=== PATIENT | male | born 1935 | race Caucasian/White ===

== ENCOUNTER 2021-05-30 15:21 | Emergency (ER) | payer OTHER ==
--- OUTSIDE RECORDS SUMMARY | 2021-05-30 15:24 | XMS REPORT | Continuity of Care Document ---
:1935 Author Organization [facility] t Address [address] [place] [address] Dr. Lozano [address] [place] [id number] Care Team Providers Name Role Phone Unavailable Unavailable Unavailable Problems This patient has no known problems. Allergies, Adverse Reactions, Alerts This patient has no known allergies or adverse reactions. Medications This patient has no known medications. Procedures This patient has no known procedures. Results This patient has no known results.
--- NOTE | 2021-05-30 16:31 | RAD REPORT ---
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 An acute fracture is not evident. A suprapatellar joint effu siri is seen which contains calcifications. It is recommended the patient undergo follow-up nonemerge nt MRI knee assessment for further evaluation this finding.
--- NOTE | 2021-05-30 16:36 | ER ---
Nurse's Notes [facility] Name: Roberto Brown Age: 86 yrs Sex: Male : 1935 Arrival Date: 05/30/2021 Time: 15:22 Bed 6 Private MD: Diagnosis: Pain in left knee;Fall on same level from slipping, tripping and stumbling without subsequent striking against object Presentation: 05/30 15:22 Chief complaint: Patient states: L knee pain since falling yesterday. Coronavirus ll1 screen: Vaccine status: Patient reports being unvaccinated. Client denies travel out of the [place] in the last 14 days. At this time, the client does not indicate any symptoms associated with coronavirus-19. Ebola Screen: Patient denies travel to an Ebola-affected area in the 21 days before illness onset. Initial Sepsis Screen: Does the patient meet any 2 criteria? No. Patient's initial sepsis screen is negative. Does the patient have a suspected source of infection? Yes: Bone or joint infection. Risk Assessment: Do you want to hurt yourself or someone else? Patient reports no desire to harm self or others. Onset of symptoms was May 29, 2021. 15:22 Method Of Arrival: EMS: [facility] ll1 15:22 Acuity: ELLI 4 ll1 Triage Assessment: 15:24 General: Appears in no apparent distress. Behavior is calm, cooperative, appropriate ll1 for age. Pain: Complains of pain in L knee Quality of pain is described as aching. Musculoskeletal: Circulation, motion, and sensation intact. Capillary refill < 3 seconds, Tenderness present in L knee Reports pain in L knee. Injury Description: Bruise. Historical: - Allergies: 15:23 No Known Allergies; ll1 - PMHx: 15:23 Hypertensive disorder; Gastroesophageal reflux disease; Hypercholesterolemia; ll1 - PSHx: 15:23 hernia SX; ll1 - Immunization history:: Client reports having NOT received the Covid vaccine. - Social history:: Smoking status: Patient reports use of chewing tobacco. Patient denies any tobacco usage or history of. Screenin:25 Abuse screen: Denies threats or abuse. Nutritional screening: No deficits noted. ll1 Tuberculosis screening: No symptoms or risk factors identified. Fall Risk Ambulatory Aid- Crutches/Cane/Walker (15 pts). Gait- Weak (10 pts.). Total Lux Fall Scale indicates Low Risk Score (25-44 pts). Fall prevention measures have been instituted. Side Rails Up X 2 Placed close to Nursing Station Frequent Obs/Assesments occuring Family Present and informed to notify staff if they need to leave bedside As available Patient and Family Educated on Fall Prevention Program and strategies. Assessment: 16:20 Reassessment: No changes from previously documented assessment. Patient and/or family ll1 updated on plan of care and expected duration. Pain level reassessed. Patient is alert, oriented x 3, equal unlabored respirations, skin warm/dry/pink. 16:47 Reassessment: No changes from previously documented assessment. Patient and/or family ll1 updated on plan of care and expected duration. Pain level reassessed. Patient is alert, oriented x 3, equal unlabored respirations, skin warm/dry/pink. Patient states feeling better. Vital Signs: 15:22 BP 134 / 67; Pulse 83; Resp 17; Temp 97.6; Pulse Ox 100% on R/A; Weight 72.57 kg; ll1 Height 6 ft. 0 in. (182.88 cm); Pain 7/10; 16:46 BP 138 / 66; Pulse 73; Resp 16; Pulse Ox 100% ; Pain 2/10; ll1 15:22 Body Mass Index 21.70 (72.57 kg, 182.88 cm) ll1 ED Course: 15:22 Patient arrived in ED. ll1 15:23 Triage completed. ll1 15:24 Arm band placed on Patient placed in an exam room, on a stretcher. ll1 15:25 Patient has correct armband on for positive identification. Bed in low position. Call ll1 light in reach. Side rails up X 1. Cardiac monitoring not applicable on this patient. 15:26 Chaim Jones PA is PHCP. adam 15:26 Roberto Mckee DO is Attending Physician. [facility] 15:26 PHCP role handed off by Chaim Jones PA kb 15:26 Rhoda Walker FNP-C is PHCP. kb 15:27 Sudarshan Sesay, ANTONIO is Primary Nurse. ll1 16:16 Knee Left 3 View XRAY In Process Unspecified. EDMS 16:46 No provider procedures requiring assistance completed. Patient did not have IV access ll1 during this emergency room visit. Administered Medications: 15:33 Drug: traMADol 50 mg Route: PO; cook 15:33 Follow up: Response: No adverse reaction cook 16:46 Follow up: Response: No adverse reaction; Pain is decreased; RASS: Alert and Calm (0) 1 Outcome: 16:35 Discharge ordered by . matt 16:46 Discharged to home via wheelchair. ll1 16:46 Condition: stable 16:46 Discharge instructions given to patient, family, Instructed on discharge instructions, follow up and referral plans. crutch walking, Demonstrated understanding of instructions, follow-up care, crutch walking. 16:47 Patient left the ED. 1 Signatures: Dispatcher [employer] Rhoda Love, CURING SUPERVISOR-C CURING SUPERVISOR-Chaim Floyd PA PA jmm Lewis, Lynsay, RN RN [facility] Norah-Ileana Catalan RN RN
--- NOTE | 2021-05-30 16:36 | EDPHYS ---
Physician Documentation [facility] Name: Roberto Brown Age: 86 yrs Sex: Male : 1935 Arrival Date: 05/30/2021 Time: 15:22 Bed 6 Private MD: ED Physician Roberto Mckee HPI: 05/30 16:46 This 86 yrs old Male presents to ER via EMS with complaints of Knee Injury, Fall Injury.kb 16:46 The patient presents with pain. The complaints affect the left knee. Context: The kb problem was sustained at home, resulted from the patient falling, while walking, the patient can partially bear weight, must have assistance. Onset: The symptoms/episode began/occurred yesterday. Modifying factors: The symptoms are alleviated by nothing. the symptoms are aggravated by weight bearing. Associated signs and symptoms: The patient has no apparent associated signs or symptoms. Treatment prior to arrival includes: no previous treatment. Severity of symptoms: At their worst the symptoms were mild, moderate, in the emergency department the symptoms are unchanged. The patient has not experienced similar symptoms in the past. The patient has not recently seen a physician. Pt reports he was bringing in groceries and misstepped causing him to fall to his left knee. Reports pain only to left knee, no other complaints. states "He just needs some pain medicine and some crutches." States pt uses crutches like a cane. . Historical: - Allergies: 15:23 No Known Allergies; ll1 - PMHx: 15:23 Hypertensive disorder; Gastroesophageal reflux disease; Hypercholesterolemia; ll1 - PSHx: 15:23 hernia SX; ll1 - Immunization history:: Client reports having NOT received the Covid vaccine. - Social history:: Smoking status: Patient reports use of chewing tobacco. Patient denies any tobacco usage or history of. ROS: 16:46 Constitutional: Negative for fever, chills, and weight loss. kb 16:46 MS/extremity: Positive for pain, of the left knee. 16:46 All other systems are negative. Exam: 16:45 Constitutional: This is a well developed, well nourished patient who is awake, alert, kb and in no acute distress. Head/Face: Normocephalic, atraumatic. ENT: Moist Mucous membranes Cardiovascular: Regular rate and rhythm with a normal S1 and S2. No gallops, murmurs, or rubs. No pulse deficits. Respiratory: Respirations even and unlabored. No increased work of breathing. Talking in full sentences Abdomen/GI: Soft, non-tender. No distention Skin: Warm, dry with normal turgor. Normal color. Neuro: Awake and alert, GCS 15, oriented to person, place, time, and situation. Moves all extremities. Normal gait. Psych: Awake, alert, with orientation to person, place and time. Behavior, mood, and affect are within normal limits. 16:45 Musculoskeletal/extremity: Extremities: grossly normal except: noted in the left knee: pain, ROM: intact in all extremities, Circulation is intact in all extremities. Sensation intact. Weight bearing: can bear weight with assistance only. Vital Signs: 15:22 BP 134 / 67; Pulse 83; Resp 17; Temp 97.6; Pulse Ox 100% on R/A; Weight 72.57 kg; ll1 Height 6 ft. 0 in. (182.88 cm); Pain 7/10; 16:46 BP 138 / 66; Pulse 73; Resp 16; Pulse Ox 100% ; Pain 2/10; ll1 15:22 Body Mass Index 21.70 (72.57 kg, 182.88 cm) ll1 MDM: 15:26 Patient medically screened. kb 16:35 Data reviewed: vital signs, nurses notes. Data interpreted: Pulse oximetry: on room air kb is 100 %. Interpretation: normal. Counseling: I had a detailed discussion with the patient and/or guardian regarding: the historical points, exam findings, and any diagnostic results supporting the discharge/admit diagnosis, radiology results, the need for outpatient follow up, a family practitioner, to return to the emergency department if symptoms worsen or persist or if there are any questions or concerns that arise at home. 05/30 15:27 Order name: Knee Left 3 View XRAY; Complete Time: 16:35 kb 05/30 16:38 Order name: Crutches; Complete Time: 16:46 kb Administered Medications: 15:33 Drug: traMADol 50 mg Route: PO; cook 15:33 Follow up: Response: No adverse reaction cook 16:46 Follow up: Response: No adverse reaction; Pain is decreased; RASS: Alert and Calm (0) ll1 Disposition: 21:29 Co-signature as Attending Physician, Roberto Mckee DO I agree with the assessment and ms3 plan of care. Disposition Summary: 05/30/21 16:35 Discharge Ordered Location: Home kb Condition: Stable kb Diagnosis - Pain in left knee kb - Fall on same level from slipping, tripping and stumbling without subsequent kb striking against object Followup: kb - With: Emergency Department - When: As needed - Reason: Worsening of condition Followup: kb - With: Private Physician - When: 2 - 3 days - Reason: Recheck today's complaints, Continuance of care, Re-evaluation by your physician Discharge Instructions: - Discharge Summary Sheet kb - Musculoskeletal Pain kb - Acute Knee Pain, Adult, [id number] kb Forms: - Medication Reconciliation Form kb - Thank You Letter kb - Antibiotic Education kb - Prescription Opioid Use kb Signatures: Dispatcher [employer] EDMS Rhoda Walker, JAVA DEVELOPMENT TEAM LEAD-C JAVA DEVELOPMENT TEAM LEAD-Sudarshan Parekh RN RN 1 Roberto Mckee DO DO ms3 Norah-Ileana Catalan RN RN Corrections: (The following items were deleted from the chart) 16:49 16:46 Pt reports he was bringing in groceries and misstepped causing him to fall to his kb left knee. Reports pain only to left knee, no other complaints. . kb
[2021-05-30 17:06] VITALS: TEMP 97.6; O2SAT 100
[2021-05-30 17:08] VITALS: BP 138/66
== END 2021-05-30 16:47 | disposition home or self-care (01) ==
LOC: ER 15:21
DX: M25.562 Pain in left knee (principal); W01.0XXA Fall on same level from slipping, tripping and stumbling without subsequent striking against object, initial encounter; Y92.009 Unspecified place in unspecified non-institutional (private) residence as the place of occurrence of the external cause; I10 Essential (primary) hypertension; F17.220 Nicotine dependence, chewing tobacco, uncomplicated
CPT/HCPCS: 99284

== ENCOUNTER 2022-11-18 17:59 | Inpatient (IN) | payer OTHER ==
--- OUTSIDE RECORDS SUMMARY | 2022-11-18 18:01 | XMS REPORT | Continuity of Care Document ---
:1935 Author Organization [facility] t Address [address] [place] [id number] Care Team Providers Name Role Phone Unavailable Unavailable Unavailable Problems This patient has no known problems. Allergies, Adverse Reactions, Alerts This patient has no known allergies or adverse reactions. Medications This patient has no known medications. Procedures This patient has no known procedures. Results This patient has no known results.
[2022-11-18] MEDS ORDERED: dilTIAZem HCL 25 MG/5 ML VIAL IV ONE (18:39)
[2022-11-18 18:56] LABS: Absolute Lymphocytes (CBC) 0.6 K/uL (0.7-4.9); Hematocrit 19.3 % (39.6-49.0); Lymphocytes % 9.7 % (15.3-44.8); MCV 81.2 fL (80-100); MPV 7.9 fL (7.6-11.3); Platelets 146 thou/uL (152-406); RBC Red Blood Cell Count 2.38 M/uL (4.33-5.43)
--- NOTE | 2022-11-18 18:56 | RAD REPORT ---
EXAM DESCRIPTION: CT - Head Brain Wo Cont - 11/18/2022 6:41 pm CLINICAL HISTORY: WEAKNESS COMPARISON: No comparisons TECHNIQUE: All CT scans are performed using dose optimization technique as appropriate and may inclu de automated exposure control or mA/KV adjustment according to patient size. FINDINGS: No intracranial hemorrhage, hydrocephalus or extra-axial fluid collection.No areas of brai n edema or evidence of midline shift. Cerebral atrophy. Left mastoid fluid. The calvarium is intact. IMPRESSION: No acute intracranial abnormality.
[2022-11-18 19:09] LABS: Albumin 2.6 g/dL (3.4-5.0); Bilirubin Direct 0.2 mg/dL (0-0.2); Bilirubin Indirect, Calculated 0.3 mg/dL (0.2-0.8); Bilirubin Total 0.5 mg/dL (0.2-1.0); Magnesium 1.7 mg/dL (1.6-2.4); Potassium 3.2 mEq/L (3.5-5.1); Protein, Total 5.7 g/dL (6.4-8.2); Troponin High Sensitivity 12.9 pg/mL (<58.9)
--- NOTE | 2022-11-18 19:31 | RAD REPORT ---
EXAM DESCRIPTION: RAD - Chest Single View - 11/18/2022 7:15 pm CLINICAL HISTORY: weakness COMPARISON: CHEST SINGLE VIEW dated 01/02/2012; CHEST SINGLE VIEW dated 10/06/2011; CTSTONE PROTOCOL da edison 01/02/2012 FINDINGS: Lines: None. Lungs: No evidence of edema or pneumonia. Pleural: No significant pleural effusions or pneumothorax. Cardiac: Heart size is probably within normal limits. Mediastinum: Large hiatal hernia. Bones: No acute fractures. Other: None IMPRESSION: No acute cardiopulmonary disease. Large hiatal hernia.
[2022-11-18] MEDS ORDERED: POTASSIUM CL SA 10 MEQ TAB PO ONE (20:00)
--- NOTE | 2022-11-18 20:04 | EDPHYS ---
Physician Documentation [facility] Name: Roberto Brown Age: 87 yrs Sex: Male : 1935 Arrival Date: 11/18/2022 Time: 17:59 Bed 16 Private MD: ED Physician Ramo Wren HPI: 11/18 20:04 This 87 yrs old Male presents to ER via Wheelchair with complaints of Dizziness, rt Weakness. 20:04 Patient presents to the ED with generalized weakness, dizziness has been present for rt several weeks, progressively worsening, acutely worsening today. Patient developed some chest pain today as well. Denies shortness of breath. Denies other plaints this time. Symptoms are moderate in severity, no other aggravating or elevating factors. Historical: - Allergies: 18:21 No Known Allergies; cm10 - PMHx: 18:21 Gastroesophageal reflux disease; Hypertensive disorder; Hypercholesterolemia; Kidney cm10 disease; - PSHx: 18:21 Hernia sx; cm10 - Immunization history:: Adult Immunizations unknown. - Social history:: Smoking status: unknown. - Family history:: not pertinent. ROS: 20:04 Constitutional: Negative for fever, chills, and weight loss, Respiratory: Negative for rt shortness of breath, cough, wheezing, and pleuritic chest pain, Abdomen/GI: Negative for abdominal pain, nausea, vomiting, diarrhea, and constipation, Psych: Negative for depression, anxiety, suicide ideation, homicidal ideation, and hallucinations. 20:04 Cardiovascular: Positive for chest pain, edema. 20:04 Neuro: Positive for dizziness, weakness. Exam: 20:04 ECG was reviewed by the Attending Physician. rt 20:04 Abdomen/GI: No tenderness or distention, brown stool in rectal vault, no melena or rectal bleeding noted. 20:04 Musculoskeletal/extremity: 3+ pitting bilateral lower extremity edema. Vital Signs: 18:20 BP 124 / 72; Pulse 101; Resp 18; Temp 98.1; Pulse Ox 96% ; cm10 19:00 BP 128 / 63; Pulse 93; Resp 18 S; Pulse Ox 97% on R/A; kc6 21:01 BP 123 / 73; Pulse 103; Resp 18; Pulse Ox 98% on R/A; ll3 MDM: 18:11 Patient medically screened. rt 20:07 Differential diagnosis: cardiac arrhythmia, Electrolyte disturbance, anemia, GI bleed. rt Data reviewed: vital signs, nurses notes. Consideration of Admission/Observation Patient was admitted/placed on observation. Management of patient was discussed with the following: Hospitalist: Agrees to admit. I considered the following discharge prescriptions or medication management in the emergency department Medications were administered in the Emergency Department. See MAR. Independent interpretation of the following test(s) in the Emergency Department CT Scan: My interpretation is No hemorrhage seen on interpretation of the CT scan images. Test considered but Not performed: CT: Abdominal pain, CT scan of the abdomen not indicate. Care significantly affected by the following chronic conditions: Hypertension. Counseling: I had a detailed discussion with the patient and/or guardian regarding the historical points, exam findings, and any diagnostic results supporting the discharge/admit diagnosis, lab results, radiology results, the need for further work-up and treatment in the hospital. Response to treatment: the patient's symptoms have markedly improved after treatment. 11/18 18:24 Order name: Basic Metabolic Panel; Complete Time: 19:18 rt 11/18 18:24 Order name: CBC with Diff rt 11/18 18:24 Order name: LFT's; Complete Time: 19:18 rt 11/18 18:24 Order name: Magnesium; Complete Time: 19:18 rt 11/18 18:24 Order name: NT PRO-BNP; Complete Time: 19:18 rt 11/18 18:24 Order name: Troponin HS; Complete Time: 19:18 rt 11/18 18:24 Order name: UAM rt 11/18 19:34 Order name: Type And Screen rt 11/18 19:58 Order name: Packed RBC Leukored EDSC 11/18 21:27 Order name: CBC Smear Scan EDMS 11/18 18:24 Order name: XRAY Chest (1 view); Complete Time: 19:33 rt 11/18 18:24 Order name: CT Head Brain wo Cont; Complete Time: 19:18 rt 11/18 18:24 Order name: EKG; Complete Time: 18:24 rt 11/18 18:24 Order name: Cardiac monitoring; Complete Time: 18:26 rt 11/18 18:24 Order name: EKG - Nurse/Tech; Complete Time: 18:26 rt 11/18 18:24 Order name: IV Saline Lock; Complete Time: 18:26 rt 11/18 18:24 Order name: Labs collected and sent; Complete Time: 18:26 rt 11/18 18:24 Order name: O2 Per Protocol; Complete Time: 18: rt 11/18 18:24 Order name: O2 Sat Monitoring; Complete Time: 18:26 rt EC:04 Rate is 100 beats/min. Rhythm is irregularly irregular, A fib with No ectopy. QRS Hinckley rt is Normal. QRS interval is normal. QT interval is normal. No Q waves. Administered Medications: 18:33 Drug: Diltiazem IVP 10 mg Route: IVP; Site: left antecubital; kc6 20:23 Drug: Potassium Chloride PO 40 mEq Route: PO; ll3 21:36 Follow up: Response: No adverse reaction ll3 20:27 Drug: amiodarone IVPB 150 mg Volume: 100 ml; Route: IVPB; Infused Over: 10 mins; Site: ll3 right antecubital; 21:35 Follow up: Response: No adverse reaction; IV Status: Completed infusion; IV Intake: ll3 100ml 20:50 Drug: amiodarone IVPB 900 mg, D5W IV 500 ml Route: IVPB; Rate: 1 mg/min; Site: right ll3 antecubital; 21:35 Follow up: Response: No adverse reaction; IV Status: Infusion continued upon admission ll3 Disposition Summary: 11/18/22 20:04 Hospitalization Ordered Hospitalization Status: Inpatient Admission rt Provider: Jose Teixeira rt Location: Telemetry/MedSurg (Inpatient) rt Condition: Fair rt Problem: new rt Symptoms: have improved rt Bed/Room Type: Standard rt Room Assignment: 401(11/18/22 20:49) cg Diagnosis - Symptomatic anemia rt - New onset atrial fibrillation with rapid ventricular rate rt - Hypokalemia rt Forms: - Medication Reconciliation Form rt - SBAR form rt - Leadership Thank You Letter rt Signatures: Dispatcher [employer] Adarsh Helton FNP-C FNP-Cla1 Donna Fuller RN RN cg Gina Crook RN RN ll3 Gladys Medina RN RN kc6 Ramo Wren MD MD rt Adelaide Samano RN RN cm10 Corrections: (The following items were deleted from the chart) 20:49 20:04 rt cg
--- NOTE | 2022-11-18 20:04 | ER ---
Nurse's Notes [facility] Name: Roberto Brown Age: 87 yrs Sex: Male : 1935 Arrival Date: 11/18/2022 Time: 17:59 Bed 16 Private MD: Diagnosis: Symptomatic anemia;New onset atrial fibrillation with rapid ventricular rate;Hypokalemia Presentation: 11/18 18:20 Chief complaint: Patient states: states dizziness and generalized weakness that has cm10 been going on for some time. Pt states that today around 1300 he started having some chest pain. Coronavirus screen: Client denies travel out of the [place] in the last 14 days. Ebola Screen: Patient denies travel to an Ebola-affected area in the 21 days before illness onset. No symptoms or risks identified at this time. Initial Sepsis Screen: Does the patient meet any 2 criteria? No. Patient's initial sepsis screen is negative. Does the patient have a suspected source of infection? No. Patient's initial sepsis screen is negative. Risk Assessment: Do you want to hurt yourself or someone else? Patient reports no desire to harm self or others. Onset of symptoms is unknown. 18:20 Method Of Arrival: Wheelchair cm10 18:20 Acuity: ELLI 2 cm10 Historical: - Allergies: 18:21 No Known Allergies; cm10 - PMHx: 18:21 Gastroesophageal reflux disease; Hypertensive disorder; Hypercholesterolemia; Kidney cm10 disease; - PSHx: 18:21 Hernia sx; cm10 - Immunization history:: Adult Immunizations unknown. - Social history:: Smoking status: unknown. - Family history:: not pertinent. Screenin:41 [facility] ED Fall Risk Assessment (Adult) History of falling in the last 3 months, kc6 including since admission No falls in past 3 months (0 pts) Confusion or Disorientation No (0 pts) Intoxicated or Sedated No (0 pts) Impaired Gait Yes (1 pt) Mobility Assist Device Used Yes (1 pt) Altered Elimination Yes (1 pt) Score/Fall Risk Level 3 or more points = High Risk. Abuse screen: Denies threats or abuse. Denies injuries from another. Nutritional screening: No deficits noted. Tuberculosis screening: No symptoms or risk factors identified. Assessment: 18:30 General: Appears in no apparent distress. comfortable, Behavior is calm, cooperative, kc6 appropriate for age. Pain: Denies pain. Neuro: Level of Consciousness is awake, alert, obeys commands, Oriented to person, place, time, situation, Appropriate for age Reports dizziness, weakness. Cardiovascular: Denies chest pain, Heart tones S1 S2 present Capillary refill < 3 seconds Edema is 3+ to left midcalf, left ankle, right midcalf and right ankle pitting to left midcalf, left ankle, right midcalf and right ankle Rhythm is atrial fibrillation with rapid ventricular response. Respiratory: Reports shortness of breath Airway is patent Trachea midline Respiratory effort is even, unlabored, Respiratory pattern is regular, symmetrical. GI: No signs and/or symptoms were reported involving the gastrointestinal system. : No signs and/or symptoms were reported regarding the genitourinary system. EENT: No signs and/or symptoms were reported regarding the EENT system. Derm: No signs and/or symptoms reported regarding the dermatologic system. Skin is intact, is healthy with good turgor, Skin is dry, Skin is pale, Skin temperature is warm. Musculoskeletal: No signs and/or symptoms reported regarding the musculoskeletal system. Circulation, motion, and sensation intact. Capillary refill < 3 seconds, Range of motion: intact in all extremities. Vital Signs: 18:20 BP 124 / 72; Pulse 101; Resp 18; Temp 98.1; Pulse Ox 96% ; cm10 19:00 BP 128 / 63; Pulse 93; Resp 18 S; Pulse Ox 97% on R/A; kc6 21:01 BP 123 / 73; Pulse 103; Resp 18; Pulse Ox 98% on R/A; ll3 ED Course: 18:00 Patient arrived in ED. rg4 18:06 Gladys Medina, RN is Primary Nurse. kc6 18:11 Ramo Wren MD is Attending Physician. rt 18:21 Triage completed. cm10 18:22 Arm band placed on Patient placed in an exam room, on a stretcher. cm10 18:41 CT Head Brain wo Cont In Process Unspecified. EDMS 18:41 Patient has correct armband on for positive identification. Bed in low position. Call kc6 light in reach. Side rails up X2. Adult w/ patient. Client placed on continuous cardiac and pulse oximetry monitoring. NIBP monitoring applied. library monitor on. 19:16 XRAY Chest (1 view) In Process Unspecified. EDMS 20:03 Jose Teixeira MD is Hospitalizing Provider. rt 20:17 Inserted saline lock: 20 gauge in right antecubital area, using aseptic technique. ll3 Blood collected. 20:17 Packed RBC Leukored Sent. ll3 21:35 No provider procedures requiring assistance completed. Patient admitted, IV remains in ll3 place. Administered Medications: 18:33 Drug: Diltiazem IVP 10 mg Route: IVP; Site: left antecubital; kc6 20:23 Drug: Potassium Chloride PO 40 mEq Route: PO; ll3 21:36 Follow up: Response: No adverse reaction ll3 20:27 Drug: amiodarone IVPB 150 mg Volume: 100 ml; Route: IVPB; Infused Over: 10 mins; Site: ll3 right antecubital; 21:35 Follow up: Response: No adverse reaction; IV Status: Completed infusion; IV Intake: ll3 100ml 20:50 Drug: amiodarone IVPB 900 mg, D5W IV 500 ml Route: IVPB; Rate: 1 mg/min; Site: right ll3 antecubital; 21:35 Follow up: Response: No adverse reaction; IV Status: Infusion continued upon admission ll3 Medication: 21:35 VIS not applicable for this client. ll3 Intake: 21:35 IV: 100ml; Total: 100ml. ll3 Outcome: 20:04 Decision to Hospitalize by Provider. rt 21:35 Admitted to Tele accompanied by tech, via stretcher, room 401, with chart, Report ll3 called to ANTONIO Johnson 21:35 Condition: stable 21:35 Instructed on the need for admit, Demonstrated understanding of instructions. 21:42 Patient left the ED. ll3 Signatures: Dispatcher [employer] Janis Kimble4 Gina Crook RN RN ll3 Gladys Medina RN RN kc6 Ramo Wren MD MD rt Adelaide Samano RN RN cm10
--- NOTE | 2022-11-18 20:11 | P.HP ---
Certification for Inpatient Patient admitted to: Inpatient With expected LOS: >2 Midnights Patient will require the following post-hospital care: None Practitioner: I am a practitioner with admitting privileges, knowledge of patient current condition, hospital course, and medical plan of care. Services: Services provided to patient in accordance with Admission requirements found in Title 42 Section 412.3 of the Code of Federal Regulations Patient History Date of Service: 11/18/22 Reason for admission: Symptomatic anemia, new onset A-fib History of Present Illness: 87-year-old male with history of hypertension, hyperlipidemia, CKD presents to the emergency department with chief complaint of dizziness/lightheadedness, dyspnea on exertion. He reports the symptoms have been worsening over the course of the last couple months, he is extremely hard of hearing, better hearing on the left ear. He lives alone but has a roommate that stays with him on most days, he denies any melena, hematochezia, or hematemesis. His labs in the ER are significant for hemoglobin 6.0 hematocrit 19.3 platelet count 146 potassium 3.2 creatinine 1.71 GFR 39 glucose 148 BNP 2220 his hemoglobin has been steadily trending down since 07/09/2021. He is not a great historian but denies any known EGD or colonoscopy in the past. He was also noted to be in A- fib RVR with a rate around 100 which is new onset for him as well, denies any chest pain. He would need to be admitted for symptomatic anemia, new onset atrial fibrillation. Allergies No Known Allergies Allergy (Unverified 10/07/11 01:36) Home Medications: Amlodipine Besylate [Norvasc] 5 mg PO DAILY 10/07/11 Hydrocodone Bit/Acetaminophen [Salol 7.5-325 Tablet] 1 each PO QIDP PRN 10/07/11 Omeprazole 20 mg PO DAILY 10/07/11 PROMETHAZINE TAB *er disp* [Xbromizun49saKCA(4/BOX)*forerdispense] 25 mg PO Q6HP PRN 10/07/11 Qualaquin 324 mg PO BEDTIME 10/07/11 - Past Medical/Surgical History Diabetic: No -: Hypertension -: Hyperlipidemia Past Surgical History: Unable to obtain Psychosocial/ Personal History: Patient lives at home, alone. Has a roommate some days. - Family History Family History: Reviewed- Non-Contributory - Social History Smoking Status: Never smoker Alcohol use: No CD- Drugs: No Caffeine use: No Place of Residence: Home Review of Systems 10-point ROS is otherwise unremarkable Respiratory: SOB with Excertion Cardiovascular: Light Headedness, As per HPI Physical Examination - Physical Exam General: Alert, In no apparent distress, Oriented x3, Other (Very hard of hearing, better hearing out of left ear) HEENT: Atraumatic, PERRLA, Other (Mucous membranes pale), EOMI, Sclerae nonicteric Neck: Supple, 2+ carotid pulse no bruit, No LAD, Without JVD or thyroid abnormality Respiratory: Clear to auscultation bilaterally, Normal air movement Cardiovascular: No edema, Regular rate/rhythm, Normal S1 S2 Capillary refill: <2 Seconds Gastrointestinal: Normal bowel sounds, No tenderness Musculoskeletal: No tenderness Integumentary: No rashes Neurological: Normal speech, Normal strength at 5/5 x4 extr, Normal tone, Normal affect Rectal: Other (Rectal exam performed by ED physician with soft brown stool) - Studies Laboratory Data (last 24 hrs) 11/18/22 11/18/22 18:36 18:36 WBC 6.10 Hgb 6.0 L Hct 19.3 L Plt Count 146 L Sodium 140 Potassium 3.2 L BUN 18 Creatinine 1.71 H Glucose 148 H Magnesium 1.7 Total Bilirubin 0.5 AST 23 ALT 18 Alkaline Phosphatase 69 Assessment and Plan - Plan Assessment: Symptomatic anemia New onset atrial fibrillation with rapid ventricular response CKD 3 Hypertension Hyperlipidemia Plan: Symptomatic anemia Hemoglobin is less than 7, he denies any melena, hematochezia or hematemesis, it appears his hemoglobin has been downtrending over the course of the last year and a half or so. We will give blood transfusion, recheck H&H 2 hours after transfusion complete. Additional labs to evaluate anemia will be ordered. Rectal exam performed in the ER with soft brown stool. New onset atrial fibrillation with rapid ventricular response Discussed with cardiology, recommends IV amiodarone load and continuous infusion. monitor on tele. Will hold off on systemic anticoagulation given hemoglobin of 6.0 currently. Appreciate further input from cardiology. CKD 3 Similar to baseline, gentle IVF, nephrology consult as needed. Hypertension Hyperlipidemia Continue home meds. DVT PPX: SCD Code status: Full Discharge Plan: Home Plan to discharge in: 48 Hours - Advance Directives Does patient have a Living Will: No Does patient have a Durable POA for Healthcare: Yes - Code Status/Comfort Care Code Status Assessed: Yes (Full) Critical Care: No Time Spent Managing Pts Care (In Minutes): 70
[2022-11-18] MEDS ORDERED: D5W 100 ML IV ONE (20:21)
[2022-11-18] MEDS ORDERED: AMIODARONE HCL 150 MG/3 ML INJ IV ONE (20:21)
[2022-11-18] MEDS ORDERED: AMIODARONE IN DEXTROSE,ISO-OSM 360 MG/200 ML BAG IV ONE (20:21)
[2022-11-18 21:26] LABS: Anisocytosis 1+; Blood Morphology Comment NOTED (NOT SEEN); Hypochromasia 1+; Platelet Estimate ADEQ; White Blood Cell Scan OK (OK)
[2022-11-18 21:27] LABS: Ovalocytes SLIGHT; Poikilocytosis 1+; Polychromasia 1+; Teardrop Cell FEW
[2022-11-18 22:00] VITALS: BMI 27.8
[2022-11-18] MEDS ORDERED: AMIODARONE HCL 900 MG in Dextrose 5%-Water 482 ML IV SCH (22:00)
[2022-11-18] MEDS ORDERED: SODIUM CHLORIDE 0.9% 10ML INJ IV PRN (22:00)
[2022-11-18] MEDS ORDERED: ONDANSETRON 4 MG/2 ML VIAL IV PRN (22:00)
[2022-11-18] MEDS ORDERED: ACETAMINOPHEN 500 MG TAB PO PRN (22:00)
[2022-11-18] MEDS ORDERED: NA CHLORIDE 0.9% 250 ML ONE (23:16)
[2022-11-18] MEDS: NA CHLORIDE 0.9% 1,000 ML IV SCH (23:26)
[2022-11-19] MEDS ORDERED: AMIODARONE IN DEXTROSE,ISO-OSM 360 MG/200 ML BAG IV ONE (03:00)
[2022-11-19 04:59] LABS: Hematocrit 20.2 % (39.6-49.0); Lymphocytes % 17.4 % (15.3-44.8); MCV 79.6 fL (80-100); MPV 8.3 fL (7.6-11.3); Platelets 137 thou/uL (152-406); RBC Red Blood Cell Count 2.53 M/uL (4.33-5.43)
[2022-11-19 05:21] LABS: Ferritin 6.2 ng/mL (26-388); Potassium 3.6 mEq/L (3.5-5.1); Thyroid Stimulating Hormone 2.53 uIU/mL (0.358-3.740); Troponin High Sensitivity 15.4 pg/mL (<58.9)
[2022-11-19] MEDS ORDERED: NA CHLORIDE 0.9% 250 ML ONE (05:31)
[2022-11-19] MEDS: PANTOPRAZOLE 40 MG INJ IVP SCH (08:19)
[2022-11-19] MEDS: NA CHLORIDE 0.9% 1,000 ML IV SCH ×2 (11:20→15:20)
--- NOTE | 2022-11-19 13:20 | P.PN ---
Subjective Date of Service: 11/19/22 Chief Complaint: Symptomatic anemia, new onset A-fib Subjective: No new changes, Improving Physical Examination - Vital Signs Temperature: 97.2 F Blood Pressure: 127/63 Pulse: 72 Respirations: 16 Pulse Ox (%): 97 - Physical Exam General: Alert, In no apparent distress, Oriented x3 HEENT: Atraumatic, Normocephalic Neck: Supple Respiratory: Normal air movement Cardiovascular: Regular rate/rhythm, Normal S1 S2 Gastrointestinal: Soft and benign Neurological: Normal speech, Normal strength at 5/5 x4 extr - Studies Laboratory Data (last 24 hrs) 11/18/22 11/18/22 18:36 18:36 WBC 6.10 Hgb 6.0 L Hct 19.3 L Plt Count 146 L Sodium 140 Potassium 3.2 L BUN 18 Creatinine 1.71 H Glucose 148 H Magnesium 1.7 Total Bilirubin 0.5 AST 23 ALT 18 Alkaline Phosphatase 69 Assessment And Plan - Plan Symptomatic anemia: Repeat hb is stable at 6.8g/dL. He does not have melena. we will follow repeat hb level. we will refer to tensioning machine operator for proper work up. New onset atrial fibrillation with rapid ventricular response ON Amiodarone for rate control. better rate controlled for now. Cardiology following. CKD 3 Similar to baseline, gentle IVF, nephrology consult as needed. Hypertension We will continue blood pressure control medications. Hyperlipidemia Continue home meds. DVT PPX: SCD due to severe anemia. Code status: Full code. Discharge Plan: Home Plan to discharge in: 48 Hours
--- NOTE | 2022-11-19 13:56 | EKG ---
Test Date: 2022-11-18 Test Time: 18:17:18 It Technical Support Specialist: OSMAN MEASUREMENT RESULTS: Intervals: Rate: 100 HI: QRSD: 96 QT: 336 QTc: 433 [place]: P: HI: QRS: 37 T: 58 INTERPRETIVE STATEMENTS: Atrial fibrillation Abnormal ECG Compared to ECG 12/08/2011 06:43:54 Sinus rhythm no longer present Ventricular premature complex(es) no longer present Myocardial infarct finding no longer present Electronically Signed On 11-19-22 13:55:13 CDT by Anup Moon
--- NOTE | 2022-11-19 14:18 | ECHO ---
HEIGHT: 6 ft 0 in WEIGHT: 205 lb 0 oz DATE OF STUDY: 11/19/[address]: Adarsh Martin NP 2-DIMENSIONAL: YES M.MODE: YES DOPPLER: YES COLOR FLOW: YES TDS: PORTABLE: YES DEFINITY: BUBBLE STUDY: DIAGNOSIS: NEW ONSET ATRIAL FIBRILLATION WITH RAPID VENTRICULAR RESPONSE CARDIAC HISTORY: CATHERIZATION: SURGERY: PROSTHETIC VALVE: PACEMAKER: MEASUREMENTS (cm) DIASTOLIC (NORMALS) SYSTOLIC (NORMALS) IVSd 0.9 (0.6-1.2) LA Diam 4.2 (1.9-4.0) LVEF 68% LVIDd 4.0 (3.5-5.7) LVIDs 2.5 (2.0-3.5) %FS 37% LVPWd 0.9 (0.6-1.2) Ao Diam 3.1 (2.0-3.7) 2 DIMENSIONAL ASSESSMENT: RIGHT ATRIUM: NORMAL LEFT ATRIUM: ENLARGED RIGHT VENTRICLE: NORMAL LEFT VENTRICLE: NORMAL TRICUSPID VALVE: MODERATE TRICUSPID REGURGITATION MITRAL VALVE: MODERATE MITRAL REGURGITATION PULMONIC VALVE: NORMAL AORTIC VALVE: CALCIFIED, NO AORTIC STENOSIS PERICARDIAL EFFUSION: NONE AORTIC ROOT: NORMAL LEFT VENTRICULAR WALL MOTION: NORMAL DOPPLER/COLOR FLOW: SEE BELOW COMMENTS: 1. NORMAL LEFT VENTRICULAR EJECTION FRACTION 60-65% WITH NORMAL WALL MOTION 2. MODERATE TO SEVERE TRICUSPID REGURGITATION 3. MODERATE MITRAL REGURGITATION 4. SEVERE PULMONARY HYPERTENSION WITH RIGHT VENTRICULAR SYSTOLIC PRESSURE GREATER THAN 60 mmHg TECHNOLOGIST: PRATEEK TEIXEIRA
--- NOTE | 2022-11-19 18:59 | CON ---
Date of Consultation: 11/19/2022 Reason For Consultation: Atrial fibrillation with rapid ventricular response. History Of Present Illness: An 87-year-old male with history of dyslipidemia, chronic kidney disease , hypertension, presented with lightheadedness and dizziness and shortness of breath. No exertion. No chest pain. Found to be in atrial fibrillation with rapid ventricular response. He was started o n amiodarone. His heart rate is controlled today, saw him by bedside, sleeping comfortably. No sign ificant symptoms. Past Medical History: As outlined above in the HPI. Medications: Refer reconciliation sheet for detailed list. Allergies: NO KNOWN DRUG ALLERGIES. Family History: No premature coronary artery disease or cancer. Social History: Does not smoke or drink. Does not use any drugs. Review of Systems: All systems reviewed are negative except as mentioned in HPI. Physical Examination: Vital Signs: Reviewed. Head and Neck: Pupils are equal, reactive to light. Intact eye movements. No JVD. No cervical lym phadenopathy. Neck is supple. Thyroid is not enlarged. Lungs: Clear to auscultation bilaterally. No rhonchi, wheezing, or crackles. No accessory muscle u se. Heart: Irregularly irregular. No extra sounds. Abdomen: Soft, nontender. Bowel sounds positive. No organomegaly. No masses or hernia. No rigidi ty or rebound. Extremities: No clubbing or cyanosis. Intact pulses. Skin: No rash. Neurologic: Alert, awake, oriented x3. No acute focal deficits appreciated. Lymph Nodes: No cervical or axillary lymphadenopathy. Investigations: BUN 16, creatinine 1.52. Hemoglobin is 6 and 7.1. Assessment/recommendations: 1.Atrial fibrillation with rapid ventricular response, responding very well to amiodarone. Continue a full 24 hours load and then when the 24 hours is completed, then to switch him to 200 mg by mouth twice a day. Patient is severely anemic, so he is not candidate for anticoagulation. I will put him on baby aspirin. 2.Severe anemia. Recommend GI evaluation to rule out gastrointestinal tract as a source of the blee ding. 3.Elevated NT-proBNP, likely chronic heart failure. Obtain an echo and his troponins have been nega tive. SR/MODL Voice ID: [id number] Report ID: [id number]
[2022-11-20] MEDS: NA CHLORIDE 0.9% 1,000 ML IV SCH ×2 (04:10→14:00)
[2022-11-20 04:11] LABS: Hematocrit 23.7 % (39.6-49.0); Lymphocytes % 13.9 % (15.3-44.8); MCV 80.2 fL (80-100); MPV 7.8 fL (7.6-11.3); Platelets 130 thou/uL (152-406); RBC Red Blood Cell Count 2.95 M/uL (4.33-5.43)
[2022-11-20 04:32] LABS: Potassium 3.8 mEq/L (3.5-5.1)
[2022-11-20] MEDS: PANTOPRAZOLE 40 MG INJ IVP SCH (09:35)
--- NOTE | 2022-11-20 14:50 | P.PN ---
Subjective Date of Service: 11/20/22 Chief Complaint: Symptomatic anemia, new onset A-fib Subjective: No new changes, Improving Physical Examination - Vital Signs Temperature: 97.8 F Blood Pressure: 182/79 Pulse: 78 Respirations: 18 Pulse Ox (%): 95 - Physical Exam General: Alert, Oriented x3 HEENT: Atraumatic, Normocephalic Neck: Supple Respiratory: Normal air movement Cardiovascular: Regular rate/rhythm, Normal S1 S2 Gastrointestinal: Soft and benign Musculoskeletal: No swelling Neurological: Normal speech Assessment And Plan - Plan Symptomatic anemia: Repeat hb is stable at 7.4g/dL. He does not have melena. we will follow repeat hb level. we will refer to bumper operator for proper work up. New onset atrial fibrillation with rapid ventricular response On Amiodarone for rate control. better rate controlled for now. Cardiology following. Oral amiodarone started. Aspirin started for anticoagulation as per cardiology recommendation. CKD 3 Similar to baseline with stable cr. we will follow clinical course closely. Hypertension We will continue blood pressure control medications. Hyperlipidemia Continue home meds. DVT PPX: SCD due to severe anemia. Code status: Full code. Discharge Plan: Home Plan to discharge in: in next 24hrs
[2022-11-20] MEDS ORDERED: HYDROCODONE/APAP 7.5/325 MG TAB PO PRN (16:44)
[2022-11-20] MEDS: AMIODARONE HCL 200 MG TAB PO SCH (20:13)
[2022-11-20] MEDS ORDERED: GABAPENTIN 100 MG CAP PO SCH (21:00)
[2022-11-21] MEDS: NA CHLORIDE 0.9% 1,000 ML IV SCH ×2 (06:30→16:09)
[2022-11-21 06:59] LABS: Absolute Lymphocytes (CBC) 0.8 K/uL (0.7-4.9); Hematocrit 22.1 % (39.6-49.0); Lymphocytes % 13.6 % (15.3-44.8); MCV 79.8 fL (80-100); MPV 7.8 fL (7.6-11.3); Platelets 116 thou/uL (152-406); RBC Red Blood Cell Count 2.77 M/uL (4.33-5.43)
[2022-11-21 07:11] LABS: Potassium 3.7 mEq/L (3.5-5.1)
[2022-11-21 08:44] LABS: Anisocytosis 1+; Blood Morphology Comment NOTED (NOT SEEN); Hypochromasia 1+; Ovalocytes 1+; Platelet Estimate ADEQ; Poikilocytosis 1+; Teardrop Cell FEW; White Blood Cell Scan OK (OK)
[2022-11-21] MEDS ORDERED: ASPIRIN EC 81 MG TAB PO SCH (09:00)
[2022-11-21] MEDS: AMIODARONE HCL 200 MG TAB PO SCH ×2 (09:02→22:19)
[2022-11-21] MEDS: AMLODIPINE 5 MG TAB PO SCH (09:02)
[2022-11-21] MEDS: PANTOPRAZOLE 40 MG INJ IVP SCH (09:02)
--- NOTE | 2022-11-21 18:31 | P.PN ---
Subjective Date of Service: 11/21/22 Chief Complaint: Symptomatic anemia, new onset A-fib No acute events overnight. He reports generalized weakness. He denies any obvious source of bleeding, specifically denying any melena, hematemesis, or hematochezia. He denies any chest pain or palpitations. Review of Systems 10-point ROS is otherwise unremarkable General: Weakness (generalized) Physical Examination - Vital Signs Temperature: 97.6 F Blood Pressure: 136/59 Pulse: 76 Respirations: 17 Pulse Ox (%): 95 - Physical Exam General: Alert, In no apparent distress, Oriented x3 HEENT: Atraumatic, Mucous membr. moist/pink, Sclerae nonicteric Neck: JVD not distended Respiratory: Clear to auscultation bilaterally, Normal air movement Cardiovascular: No edema, Regular rate/rhythm, Normal S1 S2, Systolic murmur Gastrointestinal: Normal bowel sounds, Soft and benign, Non-distended, No tenderness, No rebound, No guarding Musculoskeletal: No clubbing Integumentary: No rashes Neurological: Normal speech, Normal affect, Other (bilateral sensorineural hearing loss) Assessment And Plan - Plan # Symptomatic Anemia # Large Hiatal Hernia - Denies any obvious source of bleeding - Has large hiatal hernia, which places him at risk for Naga lesions - Serial H&H: - Hgb: 6.0 -> 6.0 -> 6.8 -> 7.1 -> 7.4 -> 7.0 - Upon chart review, hemoglobin on 07/09/2021 was 11.1 and hemoglobin on 12/15/2021 was 9.0 - Given significant difference in hemoglobin, consulted Gastroenterology - recommendations appreciated - S/P 2 units pRBCs this admission - Transfuse for Hgb < 7.0 - 2 large bore IVs - Started pantoprazole empirically # Paroxysmal Atrial Fibrillation with Rapid Ventricular Response - improved # Severe Pulmonary Hypertension # Moderate-Severe Tricuspid Regurgitation # Moderate Mitral Regurgitation His [id number] = 3 (HTN=1, Age>75=2) - Chest x-ray = "no acute cardiopulmonary disease. Large hiatal hernia." - Transthoracic echocardiogram = "1. normal left ventricular ejection fraction 60-65% with normal wall motion 2. moderate to severe tricuspid regurgitation 3. moderate mitral regurgitation 4. severe pulmonary hypertension with right ventricular systolic pressure greater than 60 mmHg" - Cardiology consulted and he was evaluated by Dr. Moon - Recommended amiodarone and aspirin (not full anticoagulation given anemia) - Hold aspirin pending GI recs # Hypertensive Urgency Blood pressure was as high as 183/79. - Continue home amlodipine - PRN hydralazine # Acute Kidney Injury on Chronic Kidney Disease Stage III - resolved - Creatinine = 1.78 -> 1.52 -> 1.37 -> 1.18 - Urinalysis = pending - Monitor creatinine and urine output - If worsening, obtain renal ultrasound - Renally dose medications # Hyperlipidemia - Reconcile home medications once verified Daniel Moseley M.D.
--- NOTE | 2022-11-21 19:01 | P.PN ---
Date of Service: 11/22/22 Subjective: ROS: 10 point ROS as noted above, otherwise negative Physical Exam: Gen: Alert, Oriented, NAD HEENT: normal conjunctiva, sclera anicteric CV: regular rate & rhythm, no edema Pulm: non-labored respirations on room air Abd: soft, nontender, nondistended MSK: no joint tenderness Integumentary: No rashes Neuro: normal speech, normal affect Problem List: 1. Symptomatic Anemia 2. Large Hiatal Hernia 3. Paroxysmal Atrial Fibrillation with RVR, improved 4. Severe Pulmonary Hypertension 5. Moderate-Severe Tricuspid Regurgitation 6. Moderate Mitral Regurgitation 7. Hypertensive Urgency 8. MAIRA on CKD3, resolved 9. Hyperlipidemia PLAN Denies any obvious source of bleeding Has large hiatal hernia, which places him at risk for Naga lesions Serial H&H: Hgb: 6.0 -> 6.0 -> 6.8 -> 7.1 -> 7.4 -> 7.0 GI consulted s/p 2 uPRBC. Transfuse for hgb < 7 Continue protonix echo:60-65% EF, mod-severe TR, moderate MR, severe pulmonary hypertension Cardiology consulted Recommended amiodarone and aspirin Hold aspirin pending GI recs Continue home amlodipine PRN hydralazine Monitor renal function If worsening, obtain renal ultrasound Renally dose medications Confirm home medications, restart as appropriate VTE: SCD given bleed Code: Full Dispo: Home
[2022-11-21] MEDS ORDERED: ALBUTEROL 2.5 MG/3 ML NEB SOL NEB PRN (22:31)
[2022-11-21] MEDS ORDERED: ALBUTEROL 2.5 MG/3 ML NEB SOL ONE (22:52)
[2022-11-22 06:13] LABS: Hematocrit 22.3 % (39.6-49.0)
[2022-11-22] MEDS: PANTOPRAZOLE 40 MG INJ IVP SCH (07:47)
[2022-11-22] MEDS: AMIODARONE HCL 200 MG TAB PO SCH ×2 (07:50→20:15)
[2022-11-22] MEDS: AMLODIPINE 5 MG TAB PO SCH (07:54)
--- NOTE | 2022-11-22 17:33 | RAD REPORT ---
EXAM DESCRIPTION: CT - Abdomen Pelvis W Contrast - 11/22/2022 1:58 pm CLINICAL HISTORY: Abdominal pain/GI bleed COMPARISON: 2011 TECHNIQUE: Computed axial tomography of the abdomen pelvis was obtained. 100 cc Isovue-300 was admin istered intravenously. Oral contrast was not requested which limits evaluation of bowel and appendix All CT scans are performed using dose optimization technique as appropriate and may include automated exposure control or mA/KV adjustment according to patient size. FINDINGS: Small cirrhotic liver. 2.9 centimeter hypo to isoechoic lesion left lobe liver. Enlarged p ortal vein. Varices Spleen, pancreas and adrenals unremarkable. Small left renal cyst unchanged. 3.1 centimeter right renal cyst. Atherosclerosis. Diverticula stem from the colon without evidence of diverticulitis. Large hiatal hernia Moderate ascites Small pleural effusions IMPRESSION: Cirrhosis. 2.9 centimeter lesion left lobe of the liver may represent neoplasm. Further evaluation with MRI va mmended Moderate ascites
--- NOTE | 2022-11-22 21:08 | PN ---
Date of Progress Note: 11/22/2022 Subjective: Seen by bedside. He converted to sinus rhythm. Review of Systems: No chest pain, shortness of breath, orthopnea, cough. No nausea, vomiting, diarrhea. All other syst ems reviewed are negative. Physical Examination: Vital Signs: Reviewed. Head and Neck: Pupils are equal, reactive to light. Intact eye movements. No JVD. No cervical lym phadenopathy. Lungs: Clear to auscultation bilaterally. No rhonchi, wheezing, or crackles. No accessory muscle u se. Heart: Regular rate and rhythm. No extra sounds. Abdomen: Soft, nontender. Bowel sounds positive. No organomegaly. No masses or hernia. No rigidi ty or rebound. Extremities: No edema, clubbing, or cyanosis. Intact pulses. Skin: No rash. Neurologic: Alert, awake. No acute focal deficits associated. Investigations: Creatinine today is 1.1 and BUN is 12. Cardiac enzymes are negative. Assessment And Plan: 1.Atrial fibrillation with rapid ventricular response, converted to sinus rhythm. Continue amiodaro ne at 200 mg twice a day and baby aspirin if feasible. 2.Severe anemia. Recommend gastrointestinal workup. Patient will need an anticoagulation for strok e prevention. However, is not a candidate due to severe anemia. Left atrial appendage is a good option, which can be done as an outpatient. 3.Acute renal failure, resolved. SR/MODL Voice ID: [id number] Report ID: [id number]
[2022-11-22] MEDS ORDERED: NA CHLORIDE 0.9% 250 ML ONE (22:41)
[2022-11-22] MEDS: HYDRALAZINE HCL 20 MG/ML VIAL IV PRN (22:57)
[2022-11-22] MEDS ORDERED: FUROSEMIDE 40 MG/4 ML VIAL IV ONE (23:59)
[2022-11-23] MEDS ORDERED: NA CHLORIDE 0.9% 100 ML ONE (02:25)
[2022-11-23] MEDS: PANTOPRAZOLE 40 MG INJ IVP SCH (07:34)
[2022-11-23] MEDS: AMIODARONE HCL 200 MG TAB PO SCH ×2 (07:37→21:05)
[2022-11-23] MEDS: AMLODIPINE 5 MG TAB PO SCH (07:38)
[2022-11-23 09:06] LABS: Hematocrit 29.8 % (39.6-49.0)
[2022-11-23] MEDS: Ringers Lactate 1,000 ML IV ONE ×2 (11:30→12:35)
[2022-11-23] MEDS ORDERED: GLYCOPYRROLATE 0.2 MG/ML SYR ONE (12:23)
[2022-11-23] MEDS ORDERED: propofoL 200 MG/20 ML VIAL IV ONE (12:23)
[2022-11-23] MEDS ORDERED: LIDOCAINE 1% MPF 5 ML VIAL ONE (12:23)
[2022-11-23] MEDS: HYDRALAZINE HCL 20 MG/ML VIAL IV PRN (21:11)
[2022-11-24 05:17] VITALS: O2SAT 94
[2022-11-24 06:39] LABS: Absolute Lymphocytes (CBC) 0.6 K/uL (0.7-4.9); Hematocrit 30.2 % (39.6-49.0); Lymphocytes % 11.6 % (15.3-44.8); MCV 82.8 fL (80-100); MPV 7.9 fL (7.6-11.3); Platelets 157 thou/uL (152-406); RBC Red Blood Cell Count 3.65 M/uL (4.33-5.43)
[2022-11-24 06:48] LABS: Protime INR 1.33
[2022-11-24 07:15] LABS: Albumin 2.8 g/dL (3.4-5.0); Bilirubin Total 1.8 mg/dL (0.2-1.0); Ferritin 25.3 ng/mL (26-388); Magnesium 1.5 mg/dL (1.6-2.4); Phosphorus 3.1 mg/dL (2.5-4.9); Potassium 3.4 mEq/L (3.5-5.1); Protein, Total 5.8 g/dL (6.4-8.2)
[2022-11-24 07:43] LABS: Hepatitis B Core IgM Nonreactive (Nonreactive); Hepatitis B surface AG Interp. Nonreactive (Nonreactive); Hepatitis C Virus Ab Nonreactive (Nonreactive)
[2022-11-24] MEDS: PANTOPRAZOLE 40 MG INJ IVP SCH (08:01)
[2022-11-24] MEDS: AMIODARONE HCL 200 MG TAB PO SCH (08:01)
[2022-11-24] MEDS: AMLODIPINE 5 MG TAB PO SCH (08:01)
[2022-11-24] MEDS ORDERED: Magnesium Sulfate 2gm IVPB 2 G/50 ML BAG IV ONE (20:00)
[2022-11-24] MEDS: ENSURE CLEAR 200 ML CAN PO SCH (20:17)
[2022-11-24] MEDS ORDERED: SOTALOL HCL 80 MG TAB PO ONE (22:00)
[2022-11-25] MEDS: SOTALOL HCL 80 MG TAB PO SCH ×2 (06:13→17:19)
[2022-11-25 07:27] LABS: Absolute Lymphocytes (CBC) 1.1 K/uL (0.7-4.9); Lymphocytes % 13.3 % (15.3-44.8); MCV 82.9 fL (80-100); MPV 7.9 fL (7.6-11.3); Platelets 204 thou/uL (152-406); RBC Red Blood Cell Count 3.86 M/uL (4.33-5.43)
[2022-11-25 07:41] LABS: Albumin 2.7 g/dL (3.4-5.0); Bilirubin Direct 0.7 mg/dL (0-0.2); Bilirubin Indirect, Calculated 0.7 mg/dL (0.2-0.8); Bilirubin Total 1.4 mg/dL (0.2-1.0); Magnesium 1.7 mg/dL (1.6-2.4); Potassium 3.6 mEq/L (3.5-5.1); Protein, Total 5.8 g/dL (6.4-8.2)
[2022-11-25] MEDS: ENSURE CLEAR 200 ML CAN PO SCH (09:31)
[2022-11-25] MEDS: AMLODIPINE 5 MG TAB PO SCH (09:33)
[2022-11-25] MEDS: PANTOPRAZOLE 40 MG INJ IVP SCH (09:33)
[2022-11-25] MEDS ORDERED: ALBUMIN HUMAN 25% 100 ML IV ONE (11:02)
[2022-11-25 16:41] VITALS: BP 141/62; TEMP 98.2
== END 2022-11-25 17:18 | disposition home or self-care (01) | DRG 378 ==
LOC: ER 17:59 → ERHOLD 20:12 → 4TH 20:55
PROVIDERS: ADMIT Internal Medicine Nephrology; ATTEND Hospitalist
PROC: 30233N1 Transfusion of Nonautologous Red Blood Cells into Peripheral Vein, Percutaneous Approach (ICD-10-PCS; 2022-11-21)
PROC: 0DB78ZX Excision of Stomach, Pylorus, Via Natural or Artificial Opening Endoscopic, Diagnostic (ICD-10-PCS; 2022-11-23)
PROC: 0W3P8ZZ Control Bleeding in Gastrointestinal Tract, Via Natural or Artificial Opening Endoscopic (ICD-10-PCS; 2022-11-23)
PROC: 0DB68ZX Excision of Stomach, Via Natural or Artificial Opening Endoscopic, Diagnostic (ICD-10-PCS; principal; 2022-11-23 12:00)
DX: K55.21 Angiodysplasia of colon with hemorrhage (principal); I85.00 Esophageal varices without bleeding; N17.9 Acute kidney failure, unspecified; I48.91 Unspecified atrial fibrillation; E87.6 Hypokalemia; I12.9 Hypertensive chronic kidney disease with stage 1 through stage 4 chronic kidney disease, or unspecified chronic kidney disease; N18.30 Chronic kidney disease, stage 3 unspecified; D63.1 Anemia in chronic kidney disease; I86.4 Gastric varices; K29.70 Gastritis, unspecified, without bleeding; K21.9 Gastro-esophageal reflux disease without esophagitis; K44.9 Diaphragmatic hernia without obstruction or gangrene; E78.00 Pure hypercholesterolemia, unspecified; I48.0 Paroxysmal atrial fibrillation; I27.20 Pulmonary hypertension, unspecified; I08.1 Rheumatic disorders of both mitral and tricuspid valves; I16.0 Hypertensive urgency; Z60.2 Problems related to living alone; Z79.899 Other long term (current) drug therapy
CPT/HCPCS: 36415; 36430; 70450; 71045; 74177; 80048; 80053; 80061; 80074; 80076; 82140; 82533; 82607; 82728; 83540; 83605; 83735; 83880; 84100; 84439; 84443; 84466; 84484; 85014; 85018; 85025; 85044; 85610; 85730; 86850; 86900; 86901; 86920; 88305; 88312; 93005; 93306; 94640; 96365; 96375; 99285; C9113; J0282; J0360; J1940; J2001; J2704; J3475; J7030; J7050; J7060; J7120; J7613; P9016; P9047; Q9967

== ENCOUNTER 2023-01-07 11:01 | Emergency (ER) | payer OTHER ==
--- OUTSIDE RECORDS SUMMARY | 2023-01-07 11:05 | XMS REPORT | Continuity of Care Document ---
:1935 Author Organization [facility] t Address [address] [place] [id number] Care Team Providers Name Role Phone Unavailable Unavailable Unavailable Problems This patient has no known problems. Allergies, Adverse Reactions, Alerts This patient has no known allergies or adverse reactions. Medications This patient has no known medications. Procedures This patient has no known procedures. Results This patient has no known results.
[2023-01-07] MEDS ORDERED: TRAMADOL HCL 50 MG TAB ONE (12:19)
[2023-01-07] MEDS ORDERED: IBUPROFEN 200 MG TAB PO ONE (12:19)
[2023-01-07] MEDS ORDERED: ACETAMINOPHEN 500 MG TAB ONE (12:19)
[2023-01-07] MEDS ORDERED: IBUPROFEN 400 MG TAB ONE (12:19)
--- NOTE | 2023-01-07 13:04 | RAD REPORT ---
EXAM DESCRIPTION: Jerardo Lowe And Mitchell (2 Views)01/07/2023 12:50 pm CLINICAL HISTORY: Chest pain COMPARISON: December 26, 2022 FINDINGS: Multiple subacute mid to lower right posterior rib fractures. The fractures vary from mild ly displaced to moderately displaced. The degree of displacement has progressed since the prior exami nation. A pneumothorax is not seen. Small right pleural effusion. Mild right basilar lung atelectasis Heart size normal IMPRESSION: No acute abnormalities displayed
--- NOTE | 2023-01-07 13:35 | EDPHYS ---
Physician Documentation [facility] Name: Roberto Brown Age: 87 yrs Sex: Male : 1935 Arrival Date: 01/07/2023 Time: 11:01 Bed 16 Private MD: ED Physician Guy Flores HPI: 01/07 12:19 This 87 yrs old Male presents to ER via Wheelchair with complaints of Chest Wall Pain. rn 12:19 The patient or guardian reports chest pain that is located primarily in the anterior rn chest wall. Onset: The symptoms/episode began/occurred 1 week(s) ago. The pain does not radiate. Associated signs and symptoms: Pertinent negatives: abdominal pain, shortness of breath. The chest pain is described as aching. Modifying factors: The symptoms are alleviated by nothing. the symptoms are aggravated by deep breath, palpation of area. Severity of pain: At its worst the pain was moderate in the emergency department the pain is unchanged. The patient has not experienced similar symptoms in the past. Patient reports fell 1 week ago and had 5-6 rib broken at that time. Sent home. States sent home without pain medication and has been hurting ever since. States pain got worse today. No shortness of breath or hemoptysis. No fever.. Historical: - Allergies: 11:32 No Known Allergies; hb - PMHx: 11:32 Gastroesophageal reflux disease; Hypercholesterolemia; Hypertensive disorder; kidney hb disease; - PSHx: 11:32 Hernia sx; hb - Immunization history:: Adult Immunizations up to date. - Social history:: Smoking status: Patient/guardian denies using tobacco. - Family history:: not pertinent. - Hospitalizations: : No recent hospitalization is reported. ROS: 12:19 Constitutional: Negative for fever, chills, and weight loss, Cardiovascular: + chest rn pain Respiratory: Negative for shortness of breath, cough, wheezing, and pleuritic chest pain, Abdomen/GI: Negative for abdominal pain, nausea, vomiting, diarrhea, and constipation, Back: Negative for injury and pain, MS/Extremity: Negative for injury and deformity, Skin: Negative for injury, rash, and discoloration, Neuro: Negative for headache, weakness, numbness, tingling, and seizure, Exam: 12:19 Constitutional: This is a well developed, well nourished patient who is awake, alert, rn and in no acute distress. Head/Face: Normocephalic, atraumatic. Chest/axilla: + right anterior/inferior chest wall tenderness, no crepitus. Cardiovascular: Regular rate and rhythm. No pulse deficits. Respiratory: No increased work of breathing, no retractions or nasal flaring. Abdomen/GI: Soft, non-tender MS/ Extremity: Pulses equal, no cyanosis. Neuro: Awake and alert, GCS 15 Vital Signs: 11:29 BP 138 / 82; Pulse 67; Resp 20; Temp 97.7; Pulse Ox 97% on R/A; Pain 10/10; hb 12:14 BP 135 / 78; Pulse 74; Resp 18; Pulse Ox 100% on R/A; mb9 13:49 BP 132 / 74; Pulse 70; Resp 16; Pulse Ox 98% on R/A; mb9 11:29 Pain Scale: Adult hb MDM: 11:11 Patient medically screened. rn 13:34 Differential diagnosis: Blunt Chest Trauma Pneumothorax Rib Fracture. Data reviewed: rn vital signs, nurses notes, radiologic studies, plain films, and as a result, I will discharge patient. Counseling: I had a detailed discussion with the patient and/or guardian regarding the historical points, exam findings, and any diagnostic results supporting the discharge/admit diagnosis, radiology results, the need for outpatient follow up, to return to the emergency department if symptoms worsen or persist or if there are any questions or concerns that arise at home. Special discussion: I discussed with the patient/guardian in detail that at this point there is no indication for admission to the hospital. It is understood, however, that if the symptoms persist or worsen the patient needs to return immediately for re-evaluation. 01/07 11:37 Order name: XRAY Chest Pa And Lat (2 Views); Complete Time: 13:06 rn Administered Medications: 12:14 Drug: Acetaminophen PO 650 mg PO once Route: PO; mb9 13:50 Follow up: Response: No adverse reaction mb9 12:14 Drug: Ibuprofen PO 600 mg PO once Route: PO; mb9 13:50 Follow up: Response: No adverse reaction mb9 12:14 Drug: traMADol PO 50 mg PO once Route: PO; mb9 13:49 Follow up: Response: No adverse reaction mb9 Disposition Summary: 01/07/23 13:34 Discharge Ordered Notes: Location: Home rn Problem: new rn Symptoms: have improved rn Condition: Stable rn Diagnosis - Multiple fractures of ribs, right side rn Followup: rn - With: Private Physician - When: As needed - Reason: Recheck today's complaints, Re-evaluation by your physician Discharge Instructions: - Discharge Summary Sheet rn - Rib Fracture rn Forms: - Medication Reconciliation Form rn - Thank You Letter rn - Antibiotic pr intern - Prescription Opioid Use rn - Patient Portal Instructions rn - Leadership Thank You Letter rn Prescriptions: - Tramadol 50 mg Oral tablet - take 1 tablet ORAL route every 12 hours As needed as needed; 15 tablet; rn Refills: 0, Product Selection Permitted Signatures: Dispatcher [employer] EDMS Guy Flores MD MD rn Baxter, Heather, RN RN hb Breneman, Mary Beth RN RN mb9
--- NOTE | 2023-01-07 13:35 | ER ---
Nurse's Notes [facility] Name: Roberto Brown Age: 87 yrs Sex: Male : 1935 Arrival Date: 01/07/2023 Time: 11:01 Bed 16 Private MD: Diagnosis: Multiple fractures of ribs, right side Presentation: 01/07 11:27 Chief complaint:. hb 11:29 Chief complaint: Seen in ED on 12/26 s/p fall, sent home on Tramadol for right rib 5-9 hb fractures, today reports worsening pain 01/11. Coronavirus screen: At this time, the client does not indicate any symptoms associated with coronavirus-19. Ebola Screen: No symptoms or risks identified at this time. Initial Sepsis Screen: Does the patient meet any 2 criteria? No. Patient's initial sepsis screen is negative. Does the patient have a suspected source of infection? No. Patient's initial sepsis screen is negative. Risk Assessment: Do you want to hurt yourself or someone else? Patient reports no desire to harm self or others. Onset of symptoms was December 26, 2022. 11:29 Method Of Arrival: Wheelchair hb 11:29 Acuity: ELLI 4 hb Historical: - Allergies: 11:32 No Known Allergies; hb - PMHx: 11:32 Gastroesophageal reflux disease; Hypercholesterolemia; Hypertensive disorder; kidney hb disease; - PSHx: 11:32 Hernia sx; hb - Immunization history:: Adult Immunizations up to date. - Social history:: Smoking status: Patient/guardian denies using tobacco. - Family history:: not pertinent. - Hospitalizations: : No recent hospitalization is reported. Screenin:03 [place] ED Fall Risk Assessment (Adult) History of falling in the last 3 months, mb9 including since admission No falls in past 3 months (0 pts) Confusion or Disorientation No (0 pts) Intoxicated or Sedated No (0 pts) Impaired Gait No (0 pts) Mobility Assist Device Used No (0 pt) Altered Elimination No (0 pt) Score/Fall Risk Level 0 - 2 = Low Risk Oriented to surroundings, Maintained a safe environment, Educated pt \T\ family on fall prevention, incl call for assistance when getting out of bed. Abuse screen: Denies threats or abuse. Nutritional screening: No deficits noted. Tuberculosis screening: No symptoms or risk factors identified. Assessment: 12:12 General: Appears in no apparent distress. Behavior is calm, cooperative. Pain: mb9 Complains of pain in right lateral chest wall Pain does not radiate. Pain currently is 7 out of 10 on a pain scale. Quality of pain is described as throbbing, Pain began gradually, Is intermittent. Neuro: Hendricks Agitation-Sedation Scale (RASS): 0 - Alert and Calm Level of Consciousness is awake, alert, obeys commands, Oriented to person, place, time, situation, Appropriate for age. Cardiovascular: Heart tones S1 S2 present. Respiratory: Airway is patent Respiratory effort is even, unlabored, Respiratory pattern is regular, symmetrical, Breath sounds are clear bilaterally. GI: Abdomen is round non-distended, Bowel sounds present X 4 quads. : No signs and/or symptoms were reported regarding the genitourinary system. EENT: No signs and/or symptoms were reported regarding the EENT system. Derm: Skin is pink, warm \T\ dry. Musculoskeletal: Range of motion: intact in all extremities. 12:45 Reassessment: pt taken to XRAY via wheelchair. mb9 13:25 Reassessment: Patient and/or family updated on plan of care and expected duration. Pain mb9 level reassessed. Patient is alert, oriented x 3, equal unlabored respirations, skin warm/dry/pink. Patient states feeling better. Patient states symptoms have improved. Vital Signs: 11:29 BP 138 / 82; Pulse 67; Resp 20; Temp 97.7; Pulse Ox 97% on R/A; Pain 10/10; hb 12:14 BP 135 / 78; Pulse 74; Resp 18; Pulse Ox 100% on R/A; mb9 13:49 BP 132 / 74; Pulse 70; Resp 16; Pulse Ox 98% on R/A; mb9 11:29 Pain Scale: Adult hb ED Course: 11:07 Patient arrived in ED. gm2 11:11 Guy Flores MD is Attending Physician. rn 11:32 Triage completed. hb 11:32 Arm band placed on. hb 12:02 Jane Strickland, ANTONIO is Primary Nurse. mb9 12:13 Placed in gown. Bed in low position. Call light in reach. Side rails up X 1. Client mb9 placed on continuous cardiac and pulse oximetry monitoring. NIBP monitoring applied. awake overnight monitor on. 12:51 XRAY Chest Pa And Lat (2 Views) In Process Unspecified. EDMS 13:50 No provider procedures requiring assistance completed. IV discontinued, intact, mb9 bleeding controlled, No redness/swelling at site. Pressure dressing applied. Administered Medications: 12:14 Drug: Acetaminophen PO 650 mg PO once Route: PO; mb9 13:50 Follow up: Response: No adverse reaction mb9 12:14 Drug: Ibuprofen PO 600 mg PO once Route: PO; mb9 13:50 Follow up: Response: No adverse reaction mb9 12:14 Drug: traMADol PO 50 mg PO once Route: PO; mb9 13:49 Follow up: Response: No adverse reaction mb9 Medication: 12:13 VIS not applicable for this client. mb9 Outcome: 13:34 Discharge ordered by . rn 13:50 Discharged to home ambulatory, mb9 13:50 Condition: stable 13:50 Discharge instructions given to patient, Instructed on discharge instructions, follow up and referral plans. Demonstrated understanding of instructions, follow-up care, medications, Prescriptions given X 1, 13:50 Patient left the ED. mb9 Signatures: Dispatcher [employer] EDMS Guy Flores MD MD rn Baxter, Heather RN Jane Orellana RN RN Taina Belcher 2
[2023-01-07 13:54] VITALS: TEMP 97.7
[2023-01-07 13:56] VITALS: BP 132/74; O2SAT 98
== END 2023-01-07 13:50 | disposition home or self-care (01) ==
LOC: ER 11:01
DX: S22.41XA Multiple fractures of ribs, right side, initial encounter for closed fracture (principal); I10 Essential (primary) hypertension; K21.9 Gastro-esophageal reflux disease without esophagitis
CPT/HCPCS: 71046; 99284

== ENCOUNTER 2023-03-09 12:10 | Inpatient (IN) | payer OTHER ==
--- OUTSIDE RECORDS SUMMARY | 2023-03-09 12:14 | XMS REPORT | Continuity of Care Document ---
Author Name Unknown Address [address] [facility] [address] [place] [address] [facility] thconnect Address [address] [facility] [address] [place] [address] Care Team Providers Care Bank Manager Name Role Phone Trevor Abreu Primary Care Physician [phone] Marlon Mccormack MD Attending Clinician [phone]- [phone] Tete Martínez RN Attending Clinician Unavailable KIKI VELEZ Attending Clinician UnavailGuy Santana MD Attending Clinician [phone] Magalie Caemron MD Attending Clinician [phone] Kiki Velez MD Attending Clinician [phone] KIKI VELEZ Admitting Clinician UnavailKiki Pat MD Admitting Clinician [phone] Payers Payer Name Policy Type Policy Number Effective Date Expirati on Date Source Problems Condition Name Condition Details Condition Category Status Onset Date Resolution Date Last Treatment Date Treating Clinician Comments Source Fall from bed, initial encounter Fall from bed, initial encounter Disease Active 2022-04 00:00: 00 [facility] Presbycusi s of both ears Presbycusi s of both ears Disease Active 2022-04 00:00: 00 [facility] Primary hypertensi on Primary hypertensi on Disease Active 2022-04- 00:00: 00 [facility] Hyperlipid emia Hyperlipid emia Disease Active 2022-04 0- 00:00: 00 [facility] 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 Disease Active 2022-04 0-13 00:00: 00 [facility] Rib fractures Rib fractures Disease Active 2022-04 0-13 00:00: 00 [facility] Hematoma Hematoma Disease Active 2022-04 0-13 00:00: 00 [facility] Pleural effusion Pleural effusion Disease Active 2022-04 0 00:00: 00 [facility] Liver masses Liver masses Disease Active 2022-04 0 00:00: 00 [facility] Hypokalemi a Hypokalemi a Disease Active 2022-04 0 00:00: 00 [facility] Normocytic anemia Normocytic anemia Disease Active 2022-04 0 00:00: 00 [facility] Thrombocyt openia Thrombocyt openia Disease Active 2022-04 0 00:00: 00 [facility] CKD (chronic kidney disease) CKD (chronic kidney disease) Disease Active 2022-04 0 00:00: 00 [facility] Allergies, Adverse Reactions, Alerts Allergy Name Allergy Type Status Severity Reaction(s) Onset Date Inactive Date Treating Clinician Comments Source NO KNOWN ALLERGIE S Drug Class Active [facility] Social History Social Habit Start Date Stop Date Quantity Comments Source [facility] of [facility] use Current smoker [facility] Alcohol intake 2023-01-15 00:00:00 2023-01-15 00:00:00 Ex-drinker (finding) [facility] Tobacco use and exposure 2023-01-14 00:00:00 2023-01-14 00:00:00 User of smokeless tobacco [facility] Tobacco Comment 2023-01-14 00:00:00 2023-01-14 00:00:00 Quit smoking in 1954 [facility] Alcohol Comment 2023-01-14 00:00:00 2023-01-14 00:00:00 Heavy EtOH abuse but quit 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 Ordering Clinician Indication Dosage Frequency Signature (SIG) Comments Components Source lactulose 10 gram/15 mL solution 2022-04 00:00: 00 Yes [id number] 30mL TAKE 30 ML BY MOUTH IN THE MORNING AND 30 ML IN THE EVENING. [facility] amLODIPine 5 mg tablet 2022-04 00:00: 00 Yes [id number] 2.5mg Take 0.5 tablets by mouth in the morning. [facility] furosemide 20 mg tablet 2022-04 00:00: 00 Yes [id number] 20mg Take 1 tablet by mouth in the morning. [facility] spironolact one 50 mg tablet 2022-04 00:00: 00 Yes [id number] 50mg Take 1 tablet by mouth in the morning. [facility] amLODIPine 5 mg tablet 2022-04 00:00: 00 Yes [id number] 2.5mg Take 0.5 tablets by mouth in the morning. [facility] furosemide 20 mg tablet 2022-04 00:00: 00 Yes [id number] 20mg Take 1 tablet by mouth in the morning. [facility] spironolact one 50 mg tablet 2022-04 00:00: 00 Yes [id number] 50mg Take 1 tablet by mouth in the morning. [facility] amLODIPine 5 mg tablet 2022-04 00:00: 00 Yes [id number] 2.5mg Take 0.5 tablets by mouth in the morning. [facility] furosemide 20 mg tablet 2022-04 00:00: 00 Yes [id number] 20mg Take 1 tablet by mouth in the morning. [facility] spironolact one 50 mg tablet 2022-04 00:00: 00 Yes [id number] 50mg Take 1 tablet by mouth in the morning. [facility] lactulose (CEPHULAC) solution 30 mL 2022-04 18:27: 19 Yes 30mL 30 mL, Oral, BIDPRN, Starting on Tue01/21/23 at 1327, Until Discontinu ed, Routine, Constipati on [facility] pantoprazol e sodium (PANTOPRAZO LE ORAL) 2022-04 16:24: 13 Yes 40mg Take 40 mg by mouth. [facility] pravastatin 40 mg tablet 2022-04 16:24: 13 Yes 40mg Take 1 tablet by mouth at bedtime. [facility] pantoprazol e sodium (PANTOPRAZO LE ORAL) 2022-04 16:24: 13 Yes 40mg Take 40 mg by mouth. [facility] pravastatin 40 mg tablet 2022-04 16:24: 13 Yes 40mg Take 1 tablet by mouth at bedtime. [facility] pantoprazol e sodium (PANTOPRAZO LE ORAL) 2022-04 16:24: 13 Yes 40mg Take 40 mg by mouth. [facility] pravastatin 40 mg tablet 2022-04 16:24: 13 Yes 40mg Take 1 tablet by mouth at bedtime. [facility] spironolact one (ALDACTONE) tablet 50 mg 2022-04 14:15: 00 Yes 50mg 50 mg, Oral, DAILY, First dose on Tue01/21/23 at 0915, Until Discontinu ed, Routine [facility] furosemide (LASIX) tablet 20 mg 2022-04 14:15: 00 Yes 20mg 20 mg, Oral, DAILY, First dose on Tue01/21/23 at 0915, Until Discontinu ed, Routine [facility] lisinopril 2.5 mg tablet 2022-04 13:24: 01-21 00:00 :00 No 2.5mg Take 1 tablet by mouth in the morning. [facility] AMLODIPINE BESYLATE, BULK, MISC 2022-04 13:24: 01-21 00:00 :00 No 5mg 5 mg. [facility] lactulose 10 gram/15 mL solution 2022-04 00:00: 00 Yes [id number] 30mL Take 30 mL by mouth in the morning and 30 mL in the evening. [facility] lactulose 10 gram/15 mL solution 2022-04 00:00: 00 Yes [id number] 30mL Take 30 mL by mouth in the morning and 30 mL in the evening. [facility] ity [facility] lactulose 10 gram/15 mL solution 2022-04 00:00: 00 02-15 00:00 :00 No [id number] 30mL Take 30 mL by mouth in the morning and 30 mL in the evening. [facility] traMADoL 50 mg tablet 2022-04 00:00: 00 01-29 04:59 :00 Yes [id number] 50mg Take 1 tablet by mouth 2 (two) times daily as needed for Pain (scale 4-6) for up to 7 days. Indication s: acute pain [facility] traMADoL 50 mg tablet 2022-04 00:00: 00 01-29 04:59 :00 Yes [id number] 50mg Take 1 tablet by mouth 2 (two) times daily as needed for Pain (scale 4-6) for up to 7 days. Indication s: acute pain [facility] lactulose 10 gram/15 mL solution 2022-04 00:00: 00 01-21 00:00 :00 No [id number] 30mL Take 30 mL by mouth 2 (two) times daily as needed for Constipati on. [facility] traMADoL (ULTRAM) tablet 50 mg 2022-04 01:00: 00 Yes 50mg 50 mg, Oral, BID, First dose (after last modificati on) on Tue01/19/23 at 2000, Until Discontinu ed, Routine [facility] albumin (ALBUMINAR 25%) 25 % injection 25 g 2022-04 21:30: 00 01-18 23:06 :00 No 25g 25 g, IV Infusion, ONCE, 1 dose, On Tue01/18/23 at 1630, 100 mL
Katja cation: HEPATORENA L SYNDROME (DIAGNOSIS )
Comme nts: Dosin-8 g/L of ascitic fluid removed [facility] Lidocaine (LIDOCARE) 4 % patch 1 Patch 2022-04 20:45: 00 01-19 08:41 :00 No 1{patch } 1 Patch, Topical, Administer over 12 Hours, ONCE, 1 dose, On Tue01/18/23 at 1545, Routine [facility] lisinopriL (PRINIVIL,Z ESTRIL) tablet 2.5 mg 2022-04 14:00: 00 Yes 2.5mg 2.5 mg, Oral, DAILY, First dose on Tue01/18/23 at 0900, Until Discontinu ed, Routine [facility] amLODIPine (NORVASC) tablet 5 mg 2022-04 14:00: 00 Yes 5mg 5 mg, Oral, DAILY, First dose on Tue01/18/23 at 0900, Until Discontinu ed, Routine [facility] sennosides (SENOKOT) tablet 8.6 mg 2022-04 14:00: 00 Yes 8.6mg 8.6 mg, Oral, DAILY, First dose on Tue01/18/23 at 0900, Until Discontinu ed, Routine [facility] KCL (KLOR-CON M20) tablet 20 mEq 2022-04 12:30: 00 01-16 14:07 :00 No 20meq 20 mEq, Oral, ONCE, 1 dose, On Tue01/16/23 at 0730, Routine [facility] pantoprazol e (PROTONIX) EC tablet 40 mg 2022-04 14:00: 00 Yes 40mg 40 mg, Oral, DAILY, First dose on Tue01/15/23 at 0900, Until Discontinu ed, Routine
Indicatio n for use: None of the above [facility] heparin (porcine) injection 5,000 Units 2022-04 11:00: 00 Yes 5000U 5,000 Units, Subcutaneo us, Q8H, First dose on Tue01/15/23 at 0600, Until Discontinu ed, Routine [facility] pravastatin (PRAVACHOL) tablet 40 mg 2022-04 02:00: 00 Yes 40mg 40 mg, Oral, QHS, First dose on Tue01/14/23 at 2100, Until Discontinu ed, Routine [facility] enoxaparin (LOVENOX) injection 30 mg 2022-04 01:00: 00 01-15 07:21 :05 No 30mg 30 mg, Subcutaneo us, Q12H, First dose on Tue01/14/23 at 2000, Until Discontinu ed, Routine [facility] potassium chloride in water (KCL) 20 mEq/100 mL RTU IVPB 20 mEq 2022-04 21:00: 00 01-15 03:24 :00 No 20meq 20 mEq, IV Piggyback, Q2H, 2 doses, First dose (after last modificati on) on Tue01/14/23 at 1600, Last dose on Tue01/14/23 at 1800, 100 mL [facility] FENTanyl PF (SUBLIMAZE (PF)) injection 50 mcg 2022-04 21:00: 00 01-14 20:16 :00 No 50ug 50 mcg, Slow IV Push, ONCE, 1 dose, On Tue01/14/23 at 1600, Routine [facility] acetaminoph en (TYLENOL) tablet 1,000 mg 2022-04 19:00: 00 Yes 1000mg 1,000 mg, Oral, TID, First dose on Tue01/14/23 at 1400, Until Discontinu ed, Routine [facility] polyethylen e glycol 3350 powder 17 g 2022-04 18:00: 00 Yes 17g 17 g, Oral, DAILY, First dose on Tue01/14/23 at 1300, Until Discontinu ed, Routine [facility] docusate (COLACE) capsule 100 mg 2022-04 18:00: 00 01-18 09:57 :02 No 100mg 100 mg, Oral, DAILY, First dose on Tue01/14/23 at 1300, Until Discontinu ed, Routine [facility] ondansetron (ZOFRAN (PF)) injection 4 mg 2022-04 17:54: 57 Yes 4mg 4 mg, Slow IV Push, Q6HPRN, Nausea and Vomiting (N/V), Starting on Tue01/14/23 at 1254
Do ses of ondansetro n 16 mg and above need to be administer ed via IV piggyback. For Dose >=24mg ECG monitoring is advisable.
[facility] morpHINE (2 mg/mL) injection 2 mg 2022-04 17:20: 40 01-18 12:39 :03 No 2mg 2 mg, Slow IV Push, Q3HPRN, Starting on Tue01/14/23 at 1220, Until Tue01/18/23 at 0739, Routine, Pain (scale 7-10), Pain unrelieved by scheduled analgesics [facility] traMADoL (ULTRAM) tablet 50 mg 2022-04 17:20: 07 01-19 18:36 :01 No 50mg 50 mg, Oral, Q6HPRN, Starting on Tue01/14/23 at 1220, Until Tue01/19/23 at 1336, Routine, Pain (scale 4-6) [facility] Immunizations Ordered Immunization Name Filled Immunization Name Date Status Comments Source Pneumococcal 20 Conjugate, PCV20 (Prevnar 20) Unknown Completed [facility] Pneumococcal 20 Conjugate, PCV20 (Prevnar 20) Unknown Completed [facility] Pneumococcal 20 Conjugate, PCV20 (Prevnar 20) Unknown Completed [facility] Vital Signs Vital Name Observation Time Observation Value Comments S ource Systolic blood pressure 2023-01-21 20:19:00 122 mm[Hg] [facility] Diastolic blood pressure 2023-01-21 20:19:00 55 mm[Hg] [facility] Heart rate 2023-01-21 20:19:00 67 /min [facility] Body temperature 2023-01-21 20:19:00 36.06 Silvia [facility] Respiratory rate 2023-01-21 20:19:00 18 /min [facility] Oxygen saturation in Arterial blood by Pulse oximetry 2023-01-21 20:19:00 97 /min [place] [facility] BMI 2023-01-14 11:51:00 31.32 kg/m2 [facility] Body weight 2023-01-14 11:51:00 90.719 kg [facility] Procedures Procedure Date / Time Performed Performing Clinician Source ALBUMIN 2023-01-21 10:28:00 Mark Lopez [facility] MAGNESIUM 2023-01-21 10:28:00 Shannan Mccormack [facility] BASIC METABOLIC PANEL (NA, K, CL, CO2, GLUCOSE, BUN, CREATININE, CA) 2023-01-21 10:28:00 Marlon Mccormack [facility] CBC WITH DIFF 2023-01-21 10:28:00 Shannan Mccormack Hoahaoism [facility] MAGNESIUM 2023-01-20 08:56:00 Shannan Mccormack Hoahaoism [facility] VITAMIN B12, LEVEL 2023-01-20 08:56:00 Kiki Velez [facility] FOLATE 2023-01-20 08:56:00 Kiki Velez [facility] THYROID STIMULATING HORMONE 2023-01-20 08:56:00 Kiki Velez [facility] BASIC METABOLIC PANEL (NA, K, CL, CO2, GLUCOSE, BUN, CREATININE, CA) 2023-01-20 08:56:00 Marlon Mccormack [facility] CBC WITH DIFF 2023-01-20 08:56:00 Shannan Mccormack [facility] MAGNESIUM 2023-01-19 11:00:00 Génesis Patiño [facility] BASIC METABOLIC PANEL (NA, K, CL, CO2, GLUCOSE, BUN, CREATININE, CA) 2023-01-19 11:00:00 Génesis Patiño [facility] CBC WITH DIFF 2023-01-19 11:00:00 Génesis Patiño [facility] ALBUMIN BODY FLUID 2023-01-18 10:30:00 [facility] 2023-01-18 10:30:00 Edwar Mario [facility] BODY FLUID DIRECT COUNT 2023-01-18 10:30:00 Hunter Mario [facility] BODY FLUID (BACTEC BOTTLE) 2023-01-18 10:30:00 Kiki Velez [facility] CYTO ABDOMINAL FLUID 2023-01-18 10:30:00 Fabiano [facility] COMP. METABOLIC PANEL ([id number]) 2023-01-18 10:29:00 Fabiano [facility] IRON PANEL 2023-01-18 10:29:00 Edwar [facility] CBC WITH DIFF 2023-01-18 10:29:00 Fabiano [facility] XR CHEST 1 VW 2023-01-16 19:07:00 Nathalie Garcias [facility] XR CHEST 1 VW 2023-01-16 14:30:00 Harsh Murrell [facility] PHOSPHORUS 2023-01-16 10:15:00 N[facility] MAGNESIUM 2023-01-16 10:15:00 Yvonne Chakraborty [facility] BASIC METABOLIC PANEL (NA, K, CL, CO2, GLUCOSE, BUN, CREATININE, CA) 2023-01-16 10:15:00 Carolina Chakraborty [facility] CBC WITHOUT DIFF 2023-01-16 10:15:00 Salud Chakraborty [facility] SMOOTH MUSCLE AB,IGG W/REFLEX 2023-01-15 10:49:00 Nicolette [facility] SMOOTH MUSCLE AB, IGG TITER 2023-01-15 10:49:00 Nicolette [facility] PHOSPHORUS 2023-01-15 10:48:00 Nico[facility] MAGNESIUM 2023-01-15 10:48:00 N[facility] BASIC METABOLIC PANEL (NA, K, CL, CO2, GLUCOSE, BUN, CREATININE, CA) 2023-01-15 10:48:00 [facility] 2023-01-15 10:48:00 Lacey Will [facility] XR CHEST 1 VW 2023-01-15 10:18:00 Lacey Will [facility] US ABDOMEN LIMITED WITH DOPPLER 2023-01-14 23:53:52 Lacey Will [facility] FERRITIN SERUM 2023-01-14 23:17:00 Lacey Will [facility] TRANSFERRIN 2023-01-14 23:17:00 [facility] CERULOPLASMIN 2023-01-14 23:17:00 Nicolette [facility] ALPHA 1 ANTITRYPSIN 2023-01-14 23:17:00 Nicolette [facility] IMMUNOGLOBULIN G 2023-01-14 23:17:00 Lacey Will [facility] ALPHA FETOPROTEIN 2023-01-14 23:17:00 Andre Rojas [facility] ACETAMINOPHEN 2023-01-14 23:17:00 [facility]-14 23:17:00 [facility] CBC WITH DIFF 2023-01-14 23:17:00 Elle Savage [facility] ANTI-NUCLEAR ANTIBODY SCREEN 2023-01-14 23:17:00 Magalie Cameron [facility] HEPATITIS B SURFACE ANTIBODY 2023-01-14 23:17:00 [facility] ANTIGEN 2023-01-14 23:17:00 Nicolette [facility] HCV ANTIBODY 2023-01-14 23:17:00 N[facility] HEPATITIS B CORE ANTIBODY IGM 2023-01-14 23:17:00 Nicolette [facility] ANTI-NUCLEAR ANTIBODY-PATHOLOGIST INTERPRETATION 2023-01-14 23:17:00 Magalie Cameron [facility] XR CHEST 1 VW 2023-01-14 21:13:00 Mohinder Scanlon [facility] XR CHEST 1 VW 2023-01-14 16:38:00 Faviola Varner [facility] LIPASE 2023-01-14 16:29:00 Faviola Varner [facility] HEPATIC FUNCTION PANEL (67545) (ALB,T.PRO,BILI T,BU/BC,ALT,AST,ALK PHOS) 2023-01-14 16:29:00 Faviola Varner [facility] BASIC METABOLIC PANEL (NA, K, CL, CO2, GLUCOSE, BUN, CREATININE, CA) 2023-01-14 16:29:00 Faviola Varner [facility] CBC WITH DIFF 2023-01-14 16:29:00 Faviola Varner [facility] PROTHROMBIN TIME / INR 2023-01-14 16:29:00 Brett Varner [facility] ACTIVATED PARTIAL THRMPLAS HILDA 2023-01-14 16:29:00 Faviola Varner [facility] CT THORAX W CONTRAST 2023-01-14 16:27:02 Mohinder Crowell [facility] CT ABDOMEN PELVIS W CONTRAST 2023-01-14 16:26:55 Mohinder Scanlon [facility] EKG-12 LEAD 2023-01-14 12:07:11 Doctor Unass igned, [place] [facility] HOSPITAL ADMISSION 2023-01-14 05:01:00 Doctor Un assigned, [place] [facility] Encounters Start Date/Time End Date/Time Encounter Type Admission Type Attending Clinicians Care Facility Care Department Encounter ID Source 2023-02-04 00:00:00 2023-02-04 00:00:00 Marlon Tong [facility] [id number] [facility] 2023-01-24 00:00:00 2023-01-24 00:00:00 Transition of Care Tete Martínez [id number] [facility] 2023-01-14 06:52:00 2023-01-21 16:20:00 Inpatient X KIKI VELEZ [facility] [id number] [facility] 2023-01-14 06:52:00 2023-01-21 16:20:00 Hospital Encounter LuhGuy, Magalie Smith Hailee, Kiki Aggarwal [facility] [id number] [facility] Results Test Description Test Time Test Comments Results Result Co mments Source [facility],IGG W/[id number] 04:42:05* Test Item Value Reference Range Interpretation Comme nts F-ACTIN (SMOOTH MUSCLE) AB, IGG(BEAKER) (test code = 70786-1) 49 See_Comment H REFERENCE INTERV AL: F-Actin (Smooth Muscle) Antibody, IgG by ?LON ?19 Units or less ....... Negative ?20 - 30 Units .......... Weak Positive-Suggest repeat ? testing in two to three weeks ? with fresh specimen. ?31 Units or greater..... Positive-Suggestive of ? autoimmune hepatitis type 1 ? or chronic active hepatitis. F-actin IgG antibodies have been shown to have increased sensitivity for autoimmune hepatitis (AIH) but lower specificity than smooth muscle antibodies (SMA). F-actin IgG antibodies can also be seen in SMA-negative disease controls (non-AIH), especially in patients with primary biliary cirrhosis and chronic hepatitis C infections. Some patients with AIH may be SMA-positive but negative for F-actin IgG. Consider testing for SMA by IFA if suspicion for AIH is strong.Performed By: [id number] [place] [address] [id number] Director: Hansel Leroy MD, PhDCLIA Number: [id number] [Automated message] The system which generated this result transmitted reference range: 0 - 19 Units. The reference range was not used to interpret this result as normal/abnormal. Lab Interpretation (test code = 04572-5) Abnormal [facility] M2 AB, [id number] 04:42:04* Test Item Value Reference Range Interpretation Comme nts AMA (test code = 77386-1) 20.4 See_Comment REFERENCE INTERV AL: Mitochondrial (M2) Antibody, IgG ? ?20.0 Units or less ......... Negative ?20.1 - 24.9 Units........... Equivocal ?25.0 Units or greater....... Positive Anti-mitochondrial antibodies (AMA) are thought to be present in 90-95% of patients with primary biliary cholangitis (PBC). However, the frequency of detected antibodies may be cohort or assay dependent, as lower sensitivities have been reported. Not all PBC patients are positive for AMA; some patients may be positive for SP100 and/or GP210 antibodies. A negative result does not rule out PBC.Performed By: [id number] [place] [address] [id number] Director: Hansel Leroy MD, PhDCLIA Number: [id number] [Automated message] The system which generated this result transmitted reference range: 0.0 - 24.9 Units. The reference range was not used to interpret this result as normal/abnormal. [facility] FL[facility] MANUAL [id number] 01:16:25* Test Item Value Reference Range Interpretation Comme nts BF SEGS% (test code = 01535-6) 13 % BF LYMPHS% (test code = 72086-7) 13 % BF MACROPHAGE% (test code = 59592-2) 49 % Erythrophages ob served BF MESOS% (test code = 74291-4) 25 % Some reactive mesothelial cells observed BF #CELLS CNTD (test code = 8936866956) 100 cells/uL JUAN DANIEL (test code = JUAN DANIEL) Reviewed by Bib Najera M.D., Director of HEMATOPATHOLOGY. [facility] Irving[facility]to Abdominal [id number] 22:20:51* Test Item Value Reference Range Interpretation Comme nts Case Report (test code = 9644487759) Non-Gynecologic Cytology ?Case: [id number] ?Authorizing Provider: ?Mansoor Donato DO ? ? ? Collected: ? 01/18/2023 0530 ?Ordering Location: ? ? [facility] Received: ?01/18/2023 0602 ? ([place] 11D) ?Pathologist: ? Janae Marcos, ? MD ? Specimen: ? ?ABDOMEN ? Final Diagnosis (test code = 3076347401) s0rlvBJzNGNhd3qhWQAmy GFuZzEwMzNcZnRuYmpcdW MxIHtccnRmMVxlcGljMTA 5QGPkFY5fcAapiBy0pIlg WOYxvkY2xKGtMQmxw5tnU MO4h2wipnbfRWIlEYobRh 9udHRibHtcZjAgQXJpYWw 7lW53GEYugK5rjYMdMZr4 XHBhcGVydzEyMjQwXHBhc YSaiYV3CAUeCX6wjkvxXM kxTEeuDMGtbyI2JCRabUY rY3ZnEPOsSU9wbdooSAD5 NFzoCMVxIOW1LzXjJMKsc 4Ooaye2GvRslFCyENlvhD FpblxmczIwXHBhclxiIEE nCQSCZG9YJS51WEHGRpEU SC1TNURHBaTRJHBBZDmrw CThHWAwHRAdPQ7yRz5pRJ OCMIgUEA9CIBIJPYzVGBj HHQ9LENCVHBEqRMEHNPSK E90BRE5CAOtaIWYiExJoh DJoRJDgBaEeFaI4gR3vPQ lxYmFsLCBNQkJTICAxMC8 pHj3vVDUsHNB2SmJuMRVK YYGeyymcwuCcLUJpap96V AE9XvYsm4T3KLLyYuWtPN ScVJ1dlYqyNEYdEC7rRSC uT2shpE2gxsw8BoJmMKXw ByD5GYClpsU7Lnv8DQQvX Lmzt7exq3DuR6LlcRNanK c5f4igFACaNrQ9sZHzYFo sH2stwfQpqQKvEETzKYl1 tNsfArXcKQZim0ntfiHaS mNoYXJzZXQwIENhbGlicm f7qV40MRQxtV0ohRBhXUz otbUjZhG9SHehASHrUwK1 VZLwpHEeRMUsT4jsRCFuH WisAWIwSBktsVIaZVE9vP ckb2L6jZGtrTWnlMpqZuK wTwAgKVMHo8ImWHu8zVnn K8KtLTAtIhX8eTYlHIOdX DilFPSzDVYlifY9gE98LD ldvgQ4uZKnj1Qyu08pw71 1sC9spIPyUQD9BFRkNEId cTQmTVCeGNG4VBMlaUSsW 0icXDPlSP0hpkhgWWwvTH blUAIwmBP7RBFnuJXaD8Y xCIHjLJhqIWBamkm8WxBg Ig2ooZSlhOckDSroq3cxi 9nzsHFzKur1PRFeExIvTb afWQxtu9Gpk3qhQMCqax5 zSXW2nVYlmMqto6N4jGPi IVRplQYdghBxHMRiQrF5Y SjmLC1krr13ZVOkPLI5ap 5ybGNccGdicmRyaGVhZFx rT5WpBVZcr878UHNjJ4Mf HUHpt9I5oiWuGmYkEHLhr MY3jzM7LNUgVAg5tLBiuk E2kvFbfCYdW5itmS3sUQX xZC3akurzh2lyYFerTAzc BOKqtOA1klN8NZWomOZhW 1OinI9pUMXrDUomHJQsqd p4IrTmQw2mlAFjhBxaSBm zYmtwYWdlXHBnbmNvbnRc cGduZGVjXHBsYWluXHBsY WluXGYwXGZzMjRccWxccG mqzW1bAuFlXmWfMQobEY2 sYGKlN5mgbZQkQAHlEXKi V3mnNlHtsC0fmKcrSUnfG jJcZnMyMFxwYXIgSSBoYX ZlIHBlcnNvbmFsbHkgcmV 1jFW0KAMsEFsrELHcVQKu bOGznq5zxJpsZUBcDD5mR GFncmVlIHdpdGggYWxsIH G8RLJneQPrxMUghAOkZLG ieSByZXNpZGVudHMsIGZl rGaug5Jbg8PvlHA3lF3jz 1upv1QzDPWarIO1XL91ka M9yW5qMTHbLL9vNYFsOZ1 woTXprCNtVMEue75qnDpu cyByZXBvcnQuXHBsYWluX GYyXGZzMjhcbGFuZzEwMz NcaGljaFxmMlxkYmNoXGY kTKxrA0hqDzKiReGaSNfc YXJ9fQ== Final Diagnosis Comment (test code = 2779175587) a8otmBOjBTXfsUQeNYDzK 8kzhbKwKLDstKAiO7Lmpx ilBXzbNY3sJL6rrItnmDV wnCAgMBRhJoRuc5kem104 cHWhl6anGMAVmeqcsQh4n ZckI74hu3U9NjcgE43fxX PsJPJ6WQAgXSSliVKjDEB uHPX6WZQnmXJdR8wuEECa FJ2hibxyWDqpTAzoBNAqg EF1NNGsxANvS2IoRCYjBH oaKDKuidf4DuHdUl7lqYU yeTcyMFxwYXJkXHBsYWlu KGSqPrQtV7h9a1FyoX2ut 7jbQMCgSVLuv1foAaU2YG acVexmqK9mlU7gbLMyLPl skqOxzqAzrzXvD5LtjdBt qROqh4BqOTncGXznX2Cia JOsUO9lGU5piEtmloGqjX XgVKdlplWtqqPjt3Infe5 ccGFyfQ== Clinical Information (test code = 6764300460) Clinical Hx: ascites. Gross Description (test code = 4669538393) b8xfjQTwRLVzqWMnXNCuH 1ilkmYuXCVypHIjB7Phgb ziBHatQG2zPR1jrDplgJE mnIGwWCMxNlGjd8kpq818 zDRel3gjUSXEgartnFs5y QetY55sw6N6HkrnT45vzH PeJIW0KORdSGSsvDHjAJE zBUX3HVPohDEtJ9kyYNJp GQ7mzquyBTonCVxiYTGfh KO7QYDwkZTiS4CkNDLhUP tbQFJahvb4PsMqHh2stZI yxTsoITwhVmyhxPvnv3Sd dCBcXGlkIDUxMDAwIFxcZ TSkF6QCTCTzGLQ6LLbcUU MvNuPHPLN5HGB9YZjhNBP XTSFhGTdnMjV3KXY6PpGI UlIgODAwMDAwMDAwMSBcX P5pUSqhyZKdTLahTvupTP vlR104YXjlNJFpQ9VuX3F qWRruUPA9IEGbZyPuERXp MT3KMzEqHPk3RAL8ITHtA Ti2DGa6MY5OZaMhDZDoLw goTcx8WDAtZXg9VTdpTJ6 KWLF7Wft1VGzeRXXzYJY7 XqcgEPy3VUKwICmrtbGqK BacOxzgJMyvM92ahZWqWU xwbGFpblxmczIyXHBhclx lDZImVISzXgAyHNGvI9xv YjMwXHBsYWluXGZzMjJcc GFyXHBhcmQgQTEuICBBQk PXRIBMLtNQJSBDO4YGLSA TSVMgRkxVSURccGFyIFJl R7FnqdBiCCSnDUDiUPqhT TE5LUOiX4Slb8XjqWPgdZ 93IGZsdWlkXHBhciBQcmV wYXJlZCAyIHNsaWRlcyAo JUIIVHXyxuvyo1lrb1TfT 5j8p3MexP7eLVPiFKHgIH UzvOZkp2lkr6umJ9l9n7I nvR8mbFWsqKTvDOYjc03d XHBhclxzYTMwXGVwaWNYc 2OjJZxzPIJfQ1HoJ3Caur I4g8qztKnod8ImbNJrLK8 ccGFyfQ== Disclaimer (test code = 4292307679) w5qbpTRkKJDer8crTACfa GFuZzEwMzNcZnRuYmpcdW JyUKdgnxNaOBnwr8JyL9E yMjAwMFxhbnNpXGRlZmxh zdggFKSbNQV6psBoZRMoN JpyLMFzVMewCn7wiNPywS dyHbWvICRhi1klwwRTTZf uOyRpV925SVIzCOrom7hf x8KqIKWwuDVwo2J4IOTAb zdkrCq2gDsfS19ge8M8Ye glG9vrSNJgZCAkB5JbJV5 vTCKnIlb3SIK3VHQ4BCVl QVCtR4QiXG3bXQBgaDChO Tj3i3lchIvbOYOlTLY3k9 nvSSrwpkPfWE3sfe0lmEs 1z2seonNlQSIfSCSsbGRT RQPgL5UkgVnzNd1taOg0s EujMowiKSM6Jip6VA2grk 26xof8jYqpYKWxvkzuEjL 0UWqsTWZoffplKTh6NGwy DSLmbSP3LIAvrSXoW2OzC SBsWK5ffcn5QUQ2LQlnIP EhFmC4URSzvOMkWNRzeJz zWVzcu785TGA4QlWiUW7u G0Wfi1V5yV3puRUjTUAdw NYqCfNpNUVoac7saDRwIR iof1CfSAT4wtT0xWVyySO jPSWzBT76Apmvw5NeEbjd j1NmI45dyQS7DTdrs5zjA I8mCcT0ogQnXOpfh7drzK 5uNaR7GJtoFL4xWS1vPKO xlI3wizwhVOJnZsEidaly SPPnvMsvgcTrIx8yjOcrH AG9YNheB0vzwW9sTbJ7LU alM9jwlM5sLSt7SAfqzOY 4LNCuhI6wTI1hnddjn0xs ZAthTGxgXOVoqpP3jfH1R SNjbUMzC4FmrO6cALHgYN 3rfuucz3awJBS0TWnlDYX uPPA9HbOaWJOtz5Zemyg2 OpGhp5PnhRUlRGsgD78qy 041PKMplgQfL3jlbPNiuz himPXnhxdwLVeyduQ9TWM dumAvg4WkNABmVGB4OFwt SNcbnKViERYagUmii3cdA 3RscGFyXHBsYWluXGYxXG ZzMjBcbGFuZzEwMzNcaGl jaFxmMVxkYmNoXGYxXGxv U2evAtGsH0JhPTTvFuXhk EShS1axXIjypgBpXKZymb EnlFT1EXywB7z8CEIxbjW ykSb9msEzFdSwQKTdRVK5 JNbjtKYoANLkn5Ccpwmjq OBsHx0ajLNrTGGcjB6aXT OuTNLdOUnsAH6zxBx5YDG FeDNefSDpNyNXWUNpMD98 rzSeCPJOauqes1E0THjiW SEwf8AnoYCxO1idb7RnPM Bbn72zDF4op9O7e7elSXC 0MS6bm0SlKNYmpOQzgGJf ATDik5Hzjflzc5VxWFLno iGxr3JlVEJdjeAbqHEhCF MrahFwzv1nfkVeRPCvNWK xM0TjpekasKretbKpDZNh ho2vsdQtZRQ2KBLNQSLhS FIvs6HhtI1hzQEXNYD0qX Bpyb2arkDBlXBzTDRghm7 8TPHfCJ9dM3qsXTKrACBh wcRraWKcv2KvHSSvlUA9l SMzDH6GJaIRd34rGMSeFL EUdiXoHCWqfZxhfCD8bbZ 1gQ6aWEoSOKQkRzx+IFRo JCLHRSWyDV7huhCwd6Rkr jDtiIkzSIVmoSQms3CfbV Hls0MyiWhcd7XbyXApwYW qGY3wFWEpuhytQDOoFPFX ItMBSZHxbgP5s4CcGDQiS HIvXOP1oDtwjqh7WJFsmI 9wWAXzJ2fqhywuILeqFUJ ny1MigD1irZRIlORif6Cz mQFzrIPPbNEfYE1orfLkQ PcAMNwWMPP3jgRyNIFzu7 CaUYfcF2odT14uyPcmgFb 4hSN0SXA6pO0aVum+IFxw YXJccGFyIEFwcHJvcHJpY LNtlHecxjEbT9CdjkOnbB 8iiVAjhhGyCD6oUL6sL9F 1eWSdZFGtsiXry5qoFPak dmUgYmVlbiByZXZpZXdlZ HZyt6WkLQywPIE0PMrlll BpbmNsdWRpbmcgSCZFLCB YjBDleIZkNXO8XEokcuHh lkHhQG6vjM7kyOzzqR8os MYxvAT7wybhMSLnJEVuaO dzJIXpSJ7rpFjpjY9zTmT nXcYxXTjmFR5qTYNhT2ds sAWrLBSdQUXuA4wcGqZmq U2tsFjfTPpdUzLbJvZgDP xwYXJccGFyXHBsYWluXGY xXGZzMjBcbGFuZzEwMzNc aGljaFxmMVxkYmNoXGYxX PkbQ4tjSoPyY8FyIKPwIs DmaGJaT5khWTuuLWQ4CXG oYG3dmPWoTC16hKUux8ex UNrxfMccbv2mQ01flAWvE QaruYueECXen40uz9UiGF KhuzJyav5nJTGclgZ9eQ3 sZSBzbGlkZSBpbWFnZXMg m0CjRRsndLTyyrSiABouE KQqETXkqBYbuoI0zrYnzm IymnZiNLLrnPefLQSev7E qGFQsQGbbi6Jifw6vaEAg RFOcjyBBlJmehYQeuU2kB 2EhJGKvMJGegh7oEAZqqO 7uQDmsv7AqktduEEGaJHH hXPNamqEssb3hTSJkvSJL DH3ABOtcnWYjh7KjceAjR 8cHWWD6KJPgPgSvPlscJX RkfECzbNCdRIHudg40WME euU0eqNvkUXEiwT2xoT1l nVsivJ9mOmCqQiWqURrcV T9vGIZnM6nkcWJnWIIeEF JzN2neMuFoyP6anFlbEWz uNwGxKmSbKCjyYET9fT== Embedded Images (test code = 6669703654) [facility] [id number] 16:41:13* Test Item Value Reference Range Interpretation Comme nts ALBUMIN BF (test code = 9562041823) 430.0 mg/dL JUAN DANIEL (test code = JUAN DANIEL) Result interpreted relative to the serum concentration. ? [facility] IrvingTotal Protein Body [id number] 15:34:16* Test Item Value Reference Range Interpretation Comme nts T.PROT BF (test code = 2249083522) 1384.0 mg/dL UNSPUN BODY FLUID COLOR (test code = 6169998196) Yellow UNSPUN BODY FLUID CLARITY (test code = 2740704312) Clear SPUN BODY FLUID COLOR (test code = 5124939500) Yellow SPUN BODY FLUID CLARITY (test code = 1879278826) Clear Sediment (test code = 5716913206) The sediment volume is <0.1 mLs of the total fluid volume of 2.0 mLs and its color is red. JUAN DANIEL (test code = JUAN DANIEL) Test developed and characteristics determined by [facility]. [facility] Irving[facility]ODY FLUID DIRECT [id number] 11:31:19* Test Item Value Reference Range Interpretation Comme nts BF COLOR (test code = 1802775177) Yellow BF WBC Count (test code = 9198343725) 156 See_Comment [Automated [employer]] The system which generated this result transmitted reference range: /?L. The reference range was not used to interpret this result as normal/abnormal. BF RBC Count (test code = 1085428542) See_Comment [Automated [employer]] The system which generated this result transmitted reference range: /?L. The reference range was not used to interpret this result as normal/abnormal. JUAN DANIEL (test code = JUAN DANIEL) The reference range and other method performance specifications have not been established for this body fluid. ?The test results must be integrated into the clinical context for interpretation. [facility] IrvingPhosphorus [id number] 11:17:22* Test Item Value Reference Range Interpretation Comme nts PHOSPHORUS (test code = 7374329838) 2.9 mg/dL 2.5-5.0 Lab Interpretation (test cod e = 49972-2) Normal [facility] (NA, K, CL, CO2, GLUCOSE, BUN, CREATININE, CA)2023-01-16 11:17:22* Test Item Value Reference Range Interpretation Comme nts NA (test code = 5636949777) 136 mmol/L 135-145 K (test code = 5445024082) 3.6 mmol/L 3.5-5.0 CL (test code = 5890181673) 105 mmol/L 98-108 CO2 TOTAL (test code = 2243997959) 27 mmol/L 23-31 AGAP (test code = 1592779139) 4 2-16 BUN (test code = 2410544256) 21 mg/dL 7-23 GLUCOSE (test code = 0538303670) 87 mg/dL 70-110 CREATININE (test code = 9207774340) 1.46 mg/dL 0.60-1.25 H CALCIUM (test code = 7812070779) 7.8 mg/dL 8.6-10.6 L eGFR (test code = 5929177437) 45.9 mL/min/1.73m2 JUAN DANIEL (test code = JUAN DANIEL) Association of Glomerular Filtration Rate (GFR) and Staging of Kidney Disease* + --+ --+ ------+| GFR (mL/min/1.73 m2) ?| With Kidney Damage ?| ?Without Kidney Damage+ --------+ --------+ +| ?>90 ?| ?Stage one ?| ? Normal ?+ ---+ ---+ -------+| ?60-89 ?| ?Stage two ?| ? Decreased GFR ? + --+ --+ ------+| ?30-59 ?| ?Stage three ?| ? Stage three ? + --+ --+ ------+| ?15-29 ?| ?Stage four ? | ? Stage four ?+ ---+ ---+ -------+| ?<15 (or dialysis) ? ?| ?Stage five ? | ? Stage five ?+ ---+ ---+ -------+ *Each stage assumes the associated GFR level has been in effect for at least three months. ?Stages 1 to 5, with or without kidney disease, indicate chronic kidney disease. Notes: Determination of stages one and two (with eGFR >59mL/min/1.73 m2) requires estimation of kidney damage for at least three months as defined by structural or functional abnormalities of the kidney, manifested by either:Pathological abnormalities or Markers of kidney damage (including abnormalities in the composition of the blood or urine or abnormalities in imaging tests). Lab Interpretation (test code = 43504-2) Abnormal [facility] IrvingMAG[facility]2023-10-15 11:17:22* Test Item Value Reference Range Interpretation Comme nts MAGNESIUM (test code = 4660787583) 1.8 mg/dL 1.7-2.4 Lab Interpretation (test cod e = 16496-8) Normal [facility] WITHOUT [id number] 10:59:01* Test Item Value Reference Range Interpretation Comme nts WBC (test code = 6690-2) 4.78 See_Comment [Automated messa ge] The system which generated this result transmitted reference range: 4.20 - 10.70 10*3/?L. The reference range was not used to interpret this result as normal/abnormal. RBC (test code = 789-8) 2.42 See_Comment L [Automated message] The system which generated this result transmitted reference range: 4.26 - 5.52 10*6/?L. The reference range was not used to interpret this result as normal/abnormal. HGB (test code = 718-7) 7.7 g/dL 12.2-16.4 L HCT (test code = 4544-3) 23.9 % 38.4-49.3 L MCH (test code = 785-6) 31.8 pg 26.1-32.7 MCV (test code = 787-2) 98.8 fL 81.7-95.6 H MCHC (test code = 786-4) 32.2 g/dL 31.2-35.0 PLT (test code = 777-3) 125 See_Comment L [Automated message] The system which generated this result transmitted reference range: 150 - 328 10*3/?L. The reference range was not used to interpret this result as normal/abnormal. MPV (test code = 34452-6) 9.6 fL 9.8-13.0 L RDW-CV (test code = 788-0) 22.2 % 12.1-15.4 H RDW-SD (test code = 12003-2) 81.6 fL 38.5-51.6 H NRBC x10^3 (test code = 1531789323) See_Comment [Automated [employer]] The system which generated this result transmitted reference range: 10*3/?L. The reference range was not used to interpret this result as normal/abnormal. NRBC/100 WBC (test code = 6709999415) 0.0 See_Comment [Automated [employer]] The system which generated this result transmitted reference range: 0.0 - 10.0 /100 WBCs. The reference range was not used to interpret this result as normal/abnormal. IPF % (test code = 7118333908) 2.7 % 1.2-10.7 Platelet count measured by fluorescence method. Lab Interpretation (test code = 72307-7) Abnormal [facility]"
[2023-03-09 13:17] LABS: Absolute Lymphocytes (CBC) 0.6 K/uL (0.7-4.9); Lymphocytes % 5.6 % (15.3-44.8); MCV 106.6 fL (80-100); MPV 8.6 fL (7.6-11.3); Platelets 190 thou/uL (152-406); RBC Red Blood Cell Count 2.53 M/uL (4.33-5.43)
[2023-03-09 14:22] LABS: Albumin 2.4 g/dL (3.4-5.0); Bilirubin Total 0.7 mg/dL (0.2-1.0)
[2023-03-09 14:44] LABS: Platelet Estimate ADEQ; White Blood Cell Scan OK (OK)
[2023-03-09] MEDS ORDERED: NA CHLORIDE 0.9% 250 ML ONE (14:44)
[2023-03-09] MEDS ORDERED: PANTOPRAZOLE 40 MG INJ ONE (14:44)
[2023-03-09 14:45] LABS: Blood Morphology Comment NOTED (NOT SEEN); Macrocytosis 1+
--- NOTE | 2023-03-09 15:02 | RAD REPORT ---
EXAM DESCRIPTION: CT - Abdomen Pelvis Wo Contrast - 03/09/2023 2:42 pm CLINICAL HISTORY: Abdominal pain. bloody stool COMPARISON: Abdomen Pelvis W Contrast dated 11/22/2022; CTSTONE PROTOCOL dated 01/02/2012 TECHNIQUE: CT imaging of the abdomen and pelvis was performed without contrast. Solid organ, bowel a nd vascular assessment is limited due to lack of IV and oral contrast. All CT scans are performed using dose optimization technique as appropriate and may include automated exposure control or mA/KV adjustment according to patient size. FINDINGS: Small right pleural effusion with atelectasis in both lung bases.Large hiatal hernia noted . Cholelithiasis. Prominent liver cirrhosis is present. There is vague poorly delineated low-density lesions in the chary er measuring approximately 3.7 cm involving the anterior left lobe of the liver and 3 cm involving th e anterior right lobe of the liver. These are incompletely assessed on this study. .Spleen is mildly enlarged. The pancreas, adrenal glands and left kidney are normal. Right kidney contains a benign cys t superiorly. Mild to moderate ascites. Prominent sigmoid diverticulosis coli without diverticulitis. The appendix is not identified as a discrete structure, however, no secondary findings of appendicitis are identif ied. Aortoiliac atherosclerosis. Moderate lower lumbar degenerative changes. IMPRESSION: Significant liver cirrhosis pattern with zogk-ib-uumomfpw ascites. Nonspecific poorly de lineated low-density hepatic lesions are present. Cholelithiasis. Diverticulosis coli is present without diverticulitis. Full colonic assessment is limited on CT. A limited non-contrast examination was performed as detailed.
--- NOTE | 2023-03-09 15:16 | ER ---
Nurse's Notes [facility] Name: Roberto Brown Age: 88 yrs Sex: Male : 1935 Arrival Date: 03/09/2023 Time: 12:10 Bed 20 Private MD: Diagnosis: GI Bleed/ Gastrointestinal hemorrhage, unspecified;Anemia, unspecified;Weakness Presentation: 03/09 12:24 Chief complaint: Patient states: blood in stool for several months. Coronavirus screen: db Vaccine status: Patient reports receiving the 2nd dose of the covid vaccine. Client denies travel out of the [place] in the last 14 days. At this time, the client does not indicate any symptoms associated with coronavirus-19. Ebola Screen: Patient negative for fever greater than or equal to 101.5 degrees Fahrenheit, and additional compatible Ebola Virus Disease symptoms Patient denies exposure to infectious person. Patient denies travel to an Ebola-affected area in the 21 days before illness onset. No symptoms or risks identified at this time. Initial Sepsis Screen: Does the patient meet any 2 criteria? No. Patient's initial sepsis screen is negative. Does the patient have a suspected source of infection? No. Patient's initial sepsis screen is negative. Risk Assessment: Do you want to hurt yourself or someone else? Patient reports no desire to harm self or others. Onset of symptoms was January 2023. 12:24 Method Of Arrival: Wheelchair db 12:24 Acuity: ELLI 3 db Historical: - Allergies: 12:35 No Known Allergies; ll1 - PMHx: 12:35 Gastroesophageal reflux disease; Hypercholesterolemia; Hypertensive disorder; kidney ll1 disease; - PSHx: 12:35 Hernia sx; ll1 - Immunization history:: Adult Immunizations up to date. - Family history:: not pertinent. - Social history:: Smoking status: unknown. - Hospitalizations: : No recent hospitalization is reported. Screenin:27 [facility] ED Fall Risk Assessment (Adult) Score/Fall Risk Level 0 - 2 = Low Risk. Abuse eh3 screen: Denies threats or abuse. Denies injuries from another. Nutritional screening: No deficits noted. Tuberculosis screening: No symptoms or risk factors identified. Assessment: 12:27 General: Appears in no apparent distress. comfortable, Behavior is calm, cooperative, eh3 appropriate for age. Pain: Denies pain. Neuro: Level of Consciousness is awake, alert, obeys commands, Oriented to person, place, time, situation. Cardiovascular: Capillary refill < 3 seconds Patient's skin is warm and dry. Respiratory: Airway is patent Respiratory effort is even, unlabored, Respiratory pattern is regular, symmetrical. GI: Abdomen is round non-distended, Reports bloody stool. Derm: Skin is dry, Skin is pale, Skin temperature is warm. Musculoskeletal: Circulation, motion, and sensation intact. 13:15 Reassessment: Patient appears in no apparent distress at this time. Patient and/or 3 family updated on plan of care and expected duration. Pain level reassessed. Patient is alert, oriented x 3, equal unlabored respirations, skin warm/dry/pink. 14:00 Reassessment: Patient appears in no apparent distress at this time. Patient and/or eh3 family updated on plan of care and expected duration. Pain level reassessed. Patient is alert, oriented x 3, equal unlabored respirations, skin warm/dry/pink. 15:00 Reassessment: Patient appears in no apparent distress at this time. Patient and/or eh3 family updated on plan of care and expected duration. Pain level reassessed. Patient is alert, oriented x 3, equal unlabored respirations, skin warm/dry/pink. 15:50 Reassessment: FOR TRANSPORTATION. CALL PT'S NEIGHBOR [phone]. [facility] 16:00 Reassessment: Patient appears in no apparent distress at this time. Patient and/or 3 family updated on plan of care and expected duration. Pain level reassessed. Patient is alert, oriented x 3, equal unlabored respirations, skin warm/dry/pink. 17:00 Reassessment: Patient appears in no apparent distress at this time. Patient and/or eh3 family updated on plan of care and expected duration. Pain level reassessed. Patient is alert, oriented x 3, equal unlabored respirations, skin warm/dry/pink. 18:38 Reassessment: Failed attempt to call report, Jamie states that since it is shift [facility] change, they do not know which night nurse will be getting this pt. 19:07 Reassessment: Failed attempt to call report to 4th floorEloina states Jamie RN is the [facility] middle of shift change and not ready to receive report but will call back for report soon. Vital Signs: 12:24 BP 95 / 79; Pulse 80; Resp 16; Temp 97.1; Pulse Ox 100% ; Weight 90.72 kg; Height 6 ft. db 0 in. ; 13:15 BP 140 / 83; Pulse 81; Resp 16; Pulse Ox 100% on R/A; eh3 14:00 BP 136 / 60; Pulse 79; Resp 18; Pulse Ox 100% on R/A; eh3 15:00 BP 156 / 76; Pulse 90; Resp 16; Pulse Ox 100% on R/A; eh3 16:00 BP 142 / 67; Pulse 86; Resp 16; Pulse Ox 100% on R/A; eh3 17:00 BP 140 / 75; Pulse 84; Resp 16; Pulse Ox 100% on R/A; eh3 12:24 Body Mass Index 27.12 (90.72 kg, 182.88 cm) db ED Course: 12:13 Patient arrived in ED. mr 12:22 Guy Flores MD is Attending Physician. rn 12:26 Triage completed. db 12:27 Patient has correct armband on for positive identification. Bed in low position. Call eh3 light in reach. Side rails up X2. Provided Education on: use of call lucas. Client placed on continuous cardiac and pulse oximetry monitoring. NIBP monitoring applied. 12:27 Arm band placed on. eh3 12:34 Kiki Knapp, RN is Primary Nurse. eh3 13:15 Inserted saline lock: 22 gauge in right forearm, using aseptic technique. ll1 14:43 Abdomen In Process Unspecified. EDMS 15:15 Bekah Moody MD is Hospitalizing Provider. rn 17:30 No provider procedures requiring assistance completed. Patient admitted, IV remains in eh3 place. Administered Medications: 15:00 Drug: Pantoprazole IVP 40 mg IVP once Route: IVP; Site: right forearm; 3 16:00 Follow up: Response: No adverse reaction 3 15:00 Drug: Pantoprazole IV 8 mg/hr IV at 25 ml/hr continuous; (Standard dilution is 80 mg in 3 250 mL NS) Route: IV; Rate: 25 ml/hr; Site: right forearm; 17:30 Follow up: Response: No adverse reaction; IV Status: Infusion continued upon admission; eh3 IV Intake: 62ml Medication: 17:30 VIS not applicable for this client. 3 Intake: 17:30 IV: 62ml; Total: 62ml. 3 Outcome: 15:16 Decision to Hospitalize by Provider. rn 17:30 Admitted to ER Hold. Please see [facility] for further documentation. [facility] 17:30 Condition: stable 17:30 Instructed on the need for admit, 19:11 Admitted to Tele accompanied by tech, via stretcher, room 431, Report called to [facility] ANTONIO Ayala 19:35 Patient left the ED. [facility] Signatures: Dispatcher [employer] EDCT Jane Cooper, Reg Reg mr Guy Flores MD MD rn Lewis, Lynsay RN RN 1 Kiki Knapp RN RN 3 Ramona Gama RN RN db
--- NOTE | 2023-03-09 15:16 | EDPHYS ---
Physician Documentation [facility] Name: Roberto Brown Age: 88 yrs Sex: Male : 1935 Arrival Date: 03/09/2023 Time: 12:10 Bed 20 Private MD: ED Physician Guy Flores HPI: 03/09 13:32 This 88 yrs old Male presents to ER via Wheelchair with complaints of Bloody Stools. rn 13:32 The patient presents to the emergency department with rectal bleeding. Onset: The rn symptoms/episode began/occurred at an unknown time. Abdominal pain: none is appreciated. Modifying factors: The symptoms are alleviated by nothing, the symptoms are aggravated by nothing. Severity of symptoms: At their worst the symptoms were moderate in the emergency department the symptoms are unchanged. The patient has experienced similar episodes in the past. The patient has not recently seen a physician. Patient reports blood in stool, black and red, for the last few days. Patient states has been intermittent for the last month or so but more consistent in the last 3 days. Denies shortness of breath. Denies syncope. Brought in by neighbor today. Denies abdominal pain.. Historical: - Allergies: 12:35 No Known Allergies; ll1 - PMHx: 12:35 Gastroesophageal reflux disease; Hypercholesterolemia; Hypertensive disorder; kidney ll1 disease; - PSHx: 12:35 Hernia sx; ll1 - Immunization history:: Adult Immunizations up to date. - Family history:: not pertinent. - Social history:: Smoking status: unknown. - Hospitalizations: : No recent hospitalization is reported. ROS: 13:32 Constitutional: Negative for fever, chills, and weight loss, ENT: Negative for injury, rn pain, and discharge, Neck: Negative for injury, pain, and swelling, Cardiovascular: Negative for chest pain, palpitations, and edema, Respiratory: Negative for shortness of breath, cough, wheezing, and pleuritic chest pain, Abdomen/GI: Positive for blood in stool MS/Extremity: Negative for injury and deformity, Skin: Negative for injury, rash, and discoloration, Neuro: Positive for generalized weakness Exam: 13:32 Constitutional: This is a well developed, well nourished patient who is awake, alert, rn and in no acute distress. Head/Face: Normocephalic, atraumatic. Eyes: Pale conjunctiva ENT: Dry mucous membranes. Cardiovascular: Regular rate and rhythm. No pulse deficits. Respiratory: No increased work of breathing, no retractions or nasal flaring. Abdomen/GI: Soft, non-tender, nondistended Skin: Warm, dry MS/ Extremity: Pulses equal, no cyanosis. Neuro: Awake and alert, GCS 15 Vital Signs: 12:24 BP 95 / 79; Pulse 80; Resp 16; Temp 97.1; Pulse Ox 100% ; Weight 90.72 kg; Height 6 ft. db 0 in. ; 13:15 BP 140 / 83; Pulse 81; Resp 16; Pulse Ox 100% on R/A; eh3 14:00 BP 136 / 60; Pulse 79; Resp 18; Pulse Ox 100% on R/A; eh3 15:00 BP 156 / 76; Pulse 90; Resp 16; Pulse Ox 100% on R/A; eh3 16:00 BP 142 / 67; Pulse 86; Resp 16; Pulse Ox 100% on R/A; eh3 17:00 BP 140 / 75; Pulse 84; Resp 16; Pulse Ox 100% on R/A; eh3 12:24 Body Mass Index 27.12 (90.72 kg, 182.88 cm) db MDM: 12:22 Patient medically screened. rn 15:13 Differential diagnosis: gastritis, diverticulitis, hemorrhoids, Cirrhosis, intestinal rn bleeding, gastric ulcer. Data reviewed: vital signs, nurses notes, lab test result(s), radiologic studies, and as a result, I will admit patient. Consideration of Admission/Observation Patient was admitted/placed on observation. Escalation of care including admission/observation considered. Care significantly affected by the following chronic conditions: Cirrhosis. Counseling: I had a detailed discussion with the patient and/or guardian regarding the historical points, exam findings, and any diagnostic results supporting the discharge/admit diagnosis, lab results, radiology results, the need for further work-up and treatment in the hospital. ED course: Patient with gross melena on exam, reports 3 days of rectal bleeding. CT without acute findings but does show history of cirrhosis and ascites. Stable vital signs. Started on a Protonix drip. No hematemesis.. 03/09 12: Order name: CBC with Diff; Complete Time: 15:05 rn 03/09 12:23 Order name: CMP; Complete Time: 15: rn 03/09 12:23 Order name: Lipase; Complete Time: 15:05 rn 03/09 12:23 Order name: Protime (+inr) rn 03/09 12:23 Order name: Ptt, Activated rn 03/09 12:23 Order name: Type And Screen rn 03/09 14:45 Order name: CBC Smear Scan; Complete Time: 15:05 EDMS 03/09 16:22 Order name: Basic Metabolic Panel EDMS 03/09 16:22 Order name: Basic Metabolic Panel EDMS 03/09 16:22 Order name: Basic Metabolic Panel EDMS 03/09 16:22 Order name: Basic Metabolic Panel EDMS 03/09 16:22 Order name: CBC with Automated Diff EDMS 03/09 16:22 Order name: CBC with Automated Diff EDMS 03/09 16:22 Order name: CBC with Automated Diff EDMS 03/09 16:22 Order name: CBC with Automated Diff EDMS 03/09 16:22 Order name: Hematocrit EDMS 03/09 16:22 Order name: Hematocrit EDMS 03/09 16:22 Order name: Hematocrit EDMS 03/09 16:22 Order name: Hematocrit EDMS 03/09 16:22 Order name: Hemoglobin EDMS 03/09 16:22 Order name: Hemoglobin EDMS 03/09 16:22 Order name: Hemoglobin EDMS 03/09 16:22 Order name: Hemoglobin EDMS 03/09 16:22 Order name: Lipid Profile EDMS 03/09 16:22 Order name: Lipid Profile EDMS 03/09 14:33 Order name: Abdomen ; Complete Time: 15:05 EDMS 03/09 12:23 Order name: IV Saline Lock; Complete Time: 13:16 rn 03/09 12:23 Order name: Labs collected and sent; Complete Time: 13:15 rn 03/09 13:28 Order name: Labs - recollect needed: recollect light green and type and screen, re band bd pt.; Complete Time: 13:58 Administered Medications: 15:00 Drug: Pantoprazole IVP 40 mg IVP once Route: IVP; Site: right forearm; 3 16:00 Follow up: Response: No adverse reaction eh3 15:00 Drug: Pantoprazole IV 8 mg/hr IV at 25 ml/hr continuous; (Standard dilution is 80 mg in eh3 250 mL NS) Route: IV; Rate: 25 ml/hr; Site: right forearm; 17:30 Follow up: Response: No adverse reaction; IV Status: Infusion continued upon admission; eh3 IV Intake: 62ml Disposition Summary: 03/09/23 15:16 Hospitalization Ordered Notes: Hospitalization Status: Observation rn Provider: Bekah Moody rn Condition: Stable rn Problem: new rn Symptoms: are unchanged rn Bed/Room Type: Standard rn Location: Telemetry/MedSurg (observation)(03/09/23 18:22) bd Room Assignment: 431(03/09/23 18:22) bd Diagnosis - GI Bleed/ Gastrointestinal hemorrhage, unspecified rn - Anemia, unspecified rn - Weakness rn Forms: - Medication Reconciliation Form rn - SBAR form rn - Leadership Thank You Letter rn Signatures: Dispatcher [employer] EDMS Shakila Land bd Guy Flores MD MD rn Lewis, Lynsay RN RN 1 Kiki Knapp, RN RN 3 Corrections: (The following items were deleted from the chart) 14:33 12:39 Abdomen Pelvis W Con+CT.RAD.BRZ ordered. EDIN EDIN 16:15 15:16 Telemetry/MedSurg (observation) rn bd 16:15 15:16 rn bd 18:22 16:15 [facility] ER HOLD bd bd 18:22 16:15 ERHOLD- bd bd
[2023-03-09] MEDS ORDERED: ACETAMINOPHEN 500 MG TAB PO PRN (16:15)
[2023-03-09] MEDS ORDERED: MORPHINE 2 MG/ML SYR IV PRN (16:15)
--- NOTE | 2023-03-09 16:28 | P.HP ---
Certification for Inpatient With expected LOS: <2 Midnights Patient will require the following post-hospital care: None Practitioner: I am a practitioner with admitting privileges, knowledge of patient current condition, hospital course, and medical plan of care. Services: Services provided to patient in accordance with Admission requirements found in Title 42 Section 412.3 of the Code of Federal Regulations <BallSindy - Last Filed: 03/09/23 19:12> Patient History Date of Service: 03/09/23 History of Present Illness: Mr. Brown 88-year-old male with a history of GERD, hypertension, hyperlipidemia, kidney disease presented to ER via wheelchair with complaints of bloody stools. The symptoms began at unknown time. Patient is not remembering when it started. Patient denies abdominal pain, nausea or vomiting. It is aggravated by nothing, . Patient reports blood in the stool, black and red, for past few days. Patient reported has been intermittent for last month or so but more consistent in the last 3 days. Denies shortness of breath, syncope, patient was brought to the hospital by his neighbor. Patient denies chest pain, palpitation, shortness of breath. Patient denies fever chills. ED course Patient alert and oriented x3, not in any acute distress. Vital signs blood pressure 95/79, pulse 80, respiration 18, temperature 97.1, pulse ox 100% EKG sh owing sinus rhythm. Patient was started on Protonix drip. Laboratory works significant for low hemoglobin of 9, hematocrit 27. Hypokalemia potassium 3, elevated BUN 45, creatinine 2.68, low GFR 22. Admitted the patient with a diagnosis of GI bleeding, anemia, weakness, acute kidney injury. Home medications list reviewed: Yes - Past Medical/Surgical History Diabetic: No -: Hypertension -: Hyperlipidemia Psychosocial/ Personal History: Patient lives at home, alone. Has a roommate some days. - Social History Smoking Status: Former smoker Alcohol use: No CD- Drugs: No Caffeine use: No <Sindy Ball - Last Filed: 03/09/23 19:12> Date of Service: 03/10/23 <Bekah Moody - Last Filed: 03/10/23 17:30> Allergies No Known Allergies Allergy (Unverified 10/07/11 01:36) Home Medications: Amlodipine Besylate [Norvasc] 5 mg PO DAILY 10/07/11 Hydrocodone Bit/Acetaminophen [[place] 7.5-325 Tablet] 1 each PO QIDP PRN 10/07/11 PROMETHAZINE TAB *er disp* [[id number](4/BOX)*forerdispense] 25 mg PO Q6HP PRN 10/07/11 Qualaquin 324 mg PO BEDTIME 10/07/11 Ensure Clear 237 ml PO BID #60 can 11/25/22 Pantoprazole [Protonix Tab] 40 mg PO BID #60 tab 11/25/22 Sotalol HCl [Betapace*] 40 mg PO BID 6AM 6PM #30 tab 11/25/22 Review of Systems 10-point ROS is otherwise unremarkable <Sindy Ball - Last Filed: 03/09/23 19:12> Physical Examination - Physical Exam General: Alert, Oriented x3 HEENT: Atraumatic, Normocephalic Neck: Supple, 2+ carotid pulse no bruit Respiratory: Clear to auscultation bilaterally, Normal air movement Cardiovascular: No edema, Normal pulses Capillary refill: <2 Seconds Gastrointestinal: Normal bowel sounds, Soft and benign, No ascites, No tenderness, No guarding, Distended Musculoskeletal: No clubbing, No swelling Integumentary: No rashes, No breakdown - Studies Laboratory Data (last 24 hrs) 03/09/23 03/09/23 13:54 13:07 WBC 10.60 Hgb 9.0 L Hct 27.0 L Plt Count 190 Sodium 140 Potassium 3.0 L BUN 45 H Creatinine 2.68 H Glucose 105 Total Bilirubin 0.7 AST 23 ALT 17 Alkaline Phosphatase 104 Lipase 46 <Sindy Ball - Last Filed: 03/09/23 19:12> - Studies Laboratory Data (last 24 hrs) 03/09/23 03/09/23 13:54 13:07 WBC 10.60 Hgb 9.0 L Hct 27.0 L Plt Count 190 Sodium 140 Potassium 3.0 L BUN 45 H Creatinine 2.68 H Glucose 105 Total Bilirubin 0.7 AST 23 ALT 17 Alkaline Phosphatase 104 Lipase 46 <Bekah Moody - Last Filed: 03/10/23 17:30> Assessment and Plan - Problems (Diagnosis) (1) GI bleeding Current Visit: Yes Status: Acute Qualifiers: GI bleed type/associated pathology: unspecified gastrointestinal hemorrhage type Qualified Code(s): K92.2 - Gastrointestinal hemorrhage, unspecified (2) Anemia due to gastrointestinal blood loss Current Visit: Yes Status: Acute (3) Weakness Current Visit: Yes Status: Acute (4) HTN (hypertension) Current Visit: Yes Status: Chronic Qualifiers: Hypertension type: primary hypertension Qualified Code(s): I10 - Essential (primary) hypertension (5) HLD (hyperlipidemia) Current Visit: Yes Status: Chronic (6) GERD (gastroesophageal reflux disease) Current Visit: Yes Status: Chronic Qualifiers: Esophagitis presence: without esophagitis Qualified Code(s): K21.9 - Gastro-esophageal reflux disease without esophagitis - Plan GI bleed/ Melena: Will continue protonix drip and IVF. Monitor H/H. Anemia: Due to GI bleed. Will monitor H/H. Htn: Will monitor BP for now. HLD: statin GERD: protnix Generalized weakness: due to anemia or GI bleed. Will trend H/h. DVT ppx: SCD Code: fu Discharge Plan: Home Plan to discharge in: 48 Hours - Advance Directives Does patient have a Living Will: No Does patient have a Durable POA for Healthcare: No - Code Status/Comfort Care Code Status Assessed: Yes (full code) Code Status: Full Code Physician Review: Patient Assessed, Agree with Above Assessment and Plan Critical Care: No Time Spent Managing Pts Care (In Minutes): 55 (minutes) <Sindy Ball - Last Filed: 03/09/23 19:12> Physician Review Additional Text: Pt seen and examined. I agree with the note by the [employer]. Pt reports seeing dark and red stool sfo rthe past 3 days. He denies any chest pain but reports generalized weakness. On admission, hgb is 9. ER physician called medicine for admission. At bedside, pt is in NAD. A/P GI bleed/ Melena: Will continue protonix drip and IVF. Monitor H/H. Anemia: Due to GI bleed. Will monitor H/H. Htn: Will monitor BP for now. HLD: statin GERD: protnix Generalized weakness: due to anemia or GI bleed. Will trend H/h. DVT ppx: SCD Code: full <Bekah Moody Last Filed: 03/10/23 17:30>
[2023-03-09] MEDS ORDERED: NA CHLORIDE 0.9% 1,000 ML IV SCH (17:00)
[2023-03-09] MEDS: PANTOPRAZOLE INJ 80 MG in NA CHLORIDE 0.9% 250 ML IV SCH (17:00)
[2023-03-09] MEDS ORDERED: KCL 20 MEQ/100 mL IVPB 20 MEQ/100 ML BAG IV SCH (17:00)
[2023-03-09] MEDS ORDERED: ALBUTEROL 2.5 MG/3 ML NEB SOL NEB PRN (17:28)
[2023-03-09] MEDS ORDERED: NA CHLORIDE 0.9% 1,000 ML ONE (18:36)
[2023-03-09] MEDS ORDERED: POTASSIUM 25 MEQ EFFERV TAB PO ONE (19:55)
[2023-03-09] MEDS ORDERED: INFLUENZA VACCINE (for 6+ mo) 0.5 ML DOSE IMVAC ONE (20:00)
[2023-03-09 20:21] LABS: Hematocrit 25.3 % (39.6-49.0)
[2023-03-09] MEDS ORDERED: POTASSIUM CL SA 10 MEQ TAB PO ONE (20:24)
[2023-03-09 20:26] LABS: Protime INR 1.24
--- NOTE | 2023-03-09 21:36 | P.CNS ---
Date of Consult: 03/09/23 Reason for Consult: MAIRA/ CKD Requesting Physician: Bekah Moody Chief Complaint: Rectal Bleeding History of Present Illness: Mr. Brown 88-year-old male with a history of GERD, hypertension, hyperlipidemia, kidney disease presented to ER via wheelchair with complaints of bloody stools. The symptoms began at unknown time. Patient is not remembering when it started. Patient denies abdominal pain, nausea or vomiting. It is aggravated by nothing, . Patient reports blood in the stool, black and red, for past few days. Patient reported has been intermittent for last month or so but more consistent in the last 3 days. Denies shortness of breath, syncope, patient was brought to the hospital by his neighbor. Patient denies chest pain, palpitation, shortness of breath. Patient denies fever chills. ED course Patient alert and oriented x3, not in any acute distress. Vital signs blood pressure 95/79, pulse 80, respiration 18, temperature 97.1, pulse ox 100% EKG showing sinus rhythm. Patient was started on Protonix drip. Laboratory works significant for low hemoglobin of 9, hematocrit 27. Hypokalemia potassium 3, elevated BUN 45, creatinine 2.68, low GFR 22. Admitted the patient with a diagnosis of GI bleeding, anemia, weakness, acute kidney injury. pilarrenriccodey 13:32 This 88 yrs old Male presents to ER via Wheelchair with complaints of Bloody Stools. rn 13:32 The patient presents to the emergency department with rectal bleeding. Onset: The rn symptoms/episode began/occurred at an unknown time. Abdominal pain: none is appreciated. Modifying factors: The symptoms are alleviated by nothing, the symptoms are aggravated by nothing. Severity of symptoms: At their worst the symptoms were moderate in the emergency department the symptoms are unchanged. The patient has experienced similar episodes in the past. The patient has not recently seen a physician. Patient reports blood in stool, black and red, for the last few days. Patient states has been intermittent for the last month or so but more consistent in the last 3 days. Denies shortness of breath. Denies syncope. Brought in by neighbor today. Denies abdominal pain.. Denies NSAIDs. Denies difficulty with urination. Poor hearing. Allergies No Known Allergies Allergy (Unverified 10/07/11 01:36) Home medications list reviewed: Yes Home Medications: Amlodipine Besylate [Norvasc] 5 mg PO DAILY 10/07/11 Hydrocodone Bit/Acetaminophen [[place] 7.5-325 Tablet] 1 each PO QIDP PRN 10/07/11 PROMETHAZINE TAB *er disp* [[id number](4/BOX)*forerdispense] 25 mg PO Q6HP PRN 10/07/11 Qualaquin 324 mg PO BEDTIME 10/07/11 Ensure Clear 237 ml PO BID #60 can 11/25/22 Pantoprazole [Protonix Tab] 40 mg PO BID #60 tab 11/25/22 Sotalol HCl [Betapace*] 40 mg PO BID 6AM 6PM #30 tab 11/25/22 - Past Medical/Surgical History Diabetic: No -: HTN -: HLD -: CKD II with Proteinuria -: Liver Cirrhosis with Ascites -: Aortic atherosclerosis Psychosocial/ Personal History: Patient lives at home, alone. Has a roommate some days. - Social History Smoking Status: Unknown if ever smoked Alcohol use: No CD- Drugs: No Caffeine use: Yes Place of Residence: Home Review of Systems 10-point ROS is otherwise unremarkable General: Weakness Physical Examination Temp Pulse Resp BP Pulse Ox 97.1 F 97 H 18 133/61 100 03/09/23 20:00 03/09/23 20:00 03/09/23 20:00 03/09/23 20:00 03/09/23 20:00 General: In no apparent distress, Oriented x3, Cooperative HEENT: Atraumatic Neck: Supple Respiratory: Clear to auscultation bilaterally Cardiovascular: No edema, Regular rate/rhythm Gastrointestinal: Soft and benign, Non-distended Musculoskeletal: No clubbing, No contractures Integumentary: No rashes, No cyanosis Neurological: Normal speech Laboratory Data (last 24 hrs) 03/09/23 03/09/23 13:54 13:07 WBC 10.60 Hgb 9.0 L Hct 27.0 L Plt Count 190 Sodium 140 Potassium 3.0 L BUN 45 H Creatinine 2.68 H Glucose 105 Total Bilirubin 0.7 AST 23 ALT 17 Alkaline Phosphatase 104 Lipase 46 Imagings Data: darrenrice EXAM DESCRIPTION: CT - Abdomen Pelvis Wo Contrast - 03/09/2023 2:42 pm CLINICAL HISTORY: Abdominal pain. bloody stool COMPARISON: Abdomen Pelvis W Contrast dated 11/22/2022; CTSTONE PROTOCOL dated 01/02/2012 TECHNIQUE: CT imaging of the abdomen and pelvis was performed without contrast. Solid organ, bowel and vascular assessment is limited due to lack of IV and oral contrast. All CT scans are performed using dose optimization technique as appropriate and may include automated exposure control or mA/KV adjustment according to patient size. FINDINGS: Small right pleural effusion with atelectasis in both lung bases.Large hiatal hernia noted. Cholelithiasis. Prominent liver cirrhosis is present. There is vague poorly delineated low- density lesions in the liver measuring approximately 3.7 cm involving the anterior left lobe of the liver and 3 cm involving the anterior right lobe of the liver. These are incompletely assessed on this study. .Spleen is mildly enlarged. The pancreas, adrenal glands and left kidney are normal. Right kidney contains a benign cyst superiorly. Mild to moderate ascites. Prominent sigmoid diverticulosis coli without diverticulitis. The appendix is not identified as a discrete structure, however, no secondary findings of appendicitis are identified. Aortoiliac atherosclerosis. Moderate lower lumbar degenerative changes. IMPRESSION: Significant liver cirrhosis pattern with [id number] ascites. Nonspecific poorly delineated low-density hepatic lesions are present. Cholelithiasis. Diverticulosis coli is present without diverticulitis. Full colonic assessment is limited on CT. A limited non-contrast examination was performed as detailed. Conclusions/Impression: Stage II MAIRA likely due to hypovolemia CKD II with Proteinuria -No NSAIDs -Change IVF to LR Hypokalemia -Replete as ordered Hypophosphatemia -Encourage nutrition -Replete prn HTN with CKD -Hold antihypertensives at this time Liver Cirrhosis with Ascites Hypoalbuminemia -Negative HBV & HCV Anemia in chronic illness Macrocytosis Iron Deficiency 11.6% -Monitor H&H -Consider IV iron; agree with oral iron -Retacrit prn -PRBC prn Aortic Atherosclerosis -Consider statin therapy Vitamin D3 Deficiency -Start Ergo Case reviewed with hospitalist team Thank you kindly for the consultation
[2023-03-09] MEDS: Ringers Lactate 1,000 ML IV SCH (22:17)
[2023-03-10 00:55] LABS: Hematocrit 20.7 % (39.6-49.0)
[2023-03-10] MEDS: PANTOPRAZOLE INJ 80 MG in NA CHLORIDE 0.9% 250 ML IV SCH ×3 (01:19→21:47)
[2023-03-10 03:17] LABS: RBC Red Blood Cell Count 1.92 M/uL (4.33-5.43)
[2023-03-10 03:18] LABS: Absolute Lymphocytes (CBC) 0.8 K/uL (0.7-4.9); Hematocrit 20.3 % (39.6-49.0); Lymphocytes % 10.5 % (15.3-44.8); MPV 8.1 fL (7.6-11.3); Platelets 133 thou/uL (152-406)
[2023-03-10 03:32] LABS: Phosphorus 2.2 mg/dL (2.5-4.9); Potassium 3.4 mEq/L (3.5-5.1); Uric Acid 10.8 mg/dL (3.5-7.2)
[2023-03-10 03:35] LABS: MCV 105.4 fL (80-100)
[2023-03-10] MEDS ORDERED: POTASSIUM 25 MEQ EFFERV TAB PO ONE (04:42)
[2023-03-10] MEDS ORDERED: NA CHLORIDE 0.9% 250 ML IV SCH (06:00)
[2023-03-10 06:29] LABS: Renal Epithelial <5 /HPF (None Seen); Specific Gravity 1.015 (1.005-1.030); Urine Bacteria None Seen /HPF (<20); Urine Bilirubin NEGATIVE (Negative); Urine Blood Negative (Negative); Urine Clarity Extremely Turbid (Clear); Urine Color Light-Yellow (Yellow); Urine Glucose NEGATIVE (Negative); Urine Mucus Slight /HPF (None Seen); Urine Protein NEGATIVE (Negative); Urine RBC None Seen /HPF (None Seen); Urine Urobilinogen Normal (Normal); Urine WBC Clump Rare /HPF (None Seen)
[2023-03-10 06:37] LABS: UR PROTEIN 24.9 mg/dL (<11.9); Urine Protein/Creatinine Ratio 0.22 ratio (<0.15)
[2023-03-10 07:21] LABS: UR MICROALBUMIN 3.1 mg/dL (< 1.9)
[2023-03-10] MEDS: Ringers Lactate 1,000 ML IV SCH (08:00)
[2023-03-10] MEDS: POTASS/SODIUM PHOSPHATE 1 PKT POWD.PACK PO SCH ×3 (08:23→10:54)
[2023-03-10] MEDS ORDERED: POTASSIUM CL SA 10 MEQ TAB PO ONE (09:00)
--- NOTE | 2023-03-10 10:22 | P.PN ---
Subjective Date of Service: 03/10/23 Chief Complaint: Rectal Bleeding Subjective: No new changes, Improving, Doing well Patient is alert and oriented x 3 Sitting up in the bed Vitals stable Patient is receiving 1 unit PRBC at this timeAs his hemoglobin dropped to 6.9 this morning No active bleeding <BallMargie durhamcris - Last Filed: 03/10/23 16:11> Date of Service: 03/10/23 <ThorBekah patiño Nikhil - Last Filed: 03/10/23 17:34> Review of Systems 10-point ROS is otherwise unremarkable <BallPabol durhammarcela - Last Filed: 03/10/23 16:11> Physical Examination - Vital Signs Temperature: 96.9 F Blood Pressure: 102/47 Pulse: 70 Respirations: 18 Pulse Ox (%): 96 - Physical Exam General: Alert, Oriented x3 HEENT: Atraumatic Neck: Supple Respiratory: Clear to auscultation bilaterally, Normal air movement Cardiovascular: No edema, Normal pulses Capillary refill: <2 Seconds Gastrointestinal: Normal bowel sounds, Soft and benign Musculoskeletal: No clubbing, No swelling Integumentary: No rashes, No breakdown - Studies Laboratory Data (last 24 hrs) 03/09/23 03/09/23 13:54 13:07 WBC 10.60 Hgb 9.0 L Hct 27.0 L Plt Count 190 Sodium 140 Potassium 3.0 L BUN 45 H Creatinine 2.68 H Glucose 105 Total Bilirubin 0.7 AST 23 ALT 17 Alkaline Phosphatase 104 Lipase 46 <Sindy Ball - Last Filed: 03/10/23 16:11> Assessment And Plan - Current Problems (Diagnosis) (1) GI bleeding Current Visit: Yes Status: Acute Qualifiers: GI bleed type/associated pathology: unspecified gastrointestinal hemorrhage type Qualified Code(s): K92.2 - Gastrointestinal hemorrhage, unspecified (2) Anemia due to gastrointestinal blood loss Current Visit: Yes Status: Acute (3) Weakness Current Visit: Yes Status: Acute (4) HTN (hypertension) Current Visit: Yes Status: Chronic Qualifiers: Hypertension type: primary hypertension Qualified Code(s): I10 - Essential (primary) hypertension (5) HLD (hyperlipidemia) Current Visit: Yes Status: Chronic (6) GERD (gastroesophageal reflux disease) Current Visit: Yes Status: Chronic Qualifiers: Esophagitis presence: without esophagitis Qualified Code(s): K21.9 - Gastro-esophageal reflux disease without esophagitis - Plan GI bleed/ Melena: Will continue protonix drip and IVF. Monitor H/H. Anemia: Hemoglobin of 6.9 over hematocrit 20 receiving 1 unit of packed RBC at this time. Will continue to monitor H&H after the transfusion She will will need to be transferred out if hemoglobin continued to drop Htn: Chronic, controlled, Will monitor BP for now. HLD: Chronic controlled on statin GERD: protnix Generalized weakness: due to anemia or GI bleed. Will trend H/h. DVT ppx: SCD Code: Full code Diet regular Discharge Plan: Home Plan to discharge in: 24 Hours - Code Status/Comfort Care Code Status Assessed: Yes (Full code ) Physician Review: Patient Assessed, Agree with Above Assessment and Plan Critical Care: No Time Spent Managing PTS Care (In Minutes): 35 (Minutes) <Sindy Ball - Last Filed: 03/10/23 16:11> Physician Review Additional Text: 03/10/23 17:33 Pt seen and examined. I agree with the note by the MEDICINE AIDE. Hgb dropped to 6.9. It improved to 9.2 after 1 unit of blood. Will continue to monitor H/H. Will transfer pt for colonoscopy. <Bekah Moody - Last Filed: 03/10/23 17:34>
[2023-03-10] MEDS: FERROUS SULFATE 325 MG TAB PO SCH ×2 (10:55→21:47)
[2023-03-10] MEDS ORDERED: KCL 20 MEQ/100 mL IVPB 20 MEQ/100 ML BAG IV ONE (13:00)
[2023-03-10 13:06] LABS: Absolute Lymphocytes (CBC) 0.6 K/uL (0.7-4.9); Hematocrit 27.5 % (39.6-49.0); Lymphocytes % 7.8 % (15.3-44.8); MPV 8.1 fL (7.6-11.3); Platelets 144 thou/uL (152-406); RBC Red Blood Cell Count 2.72 M/uL (4.33-5.43)
--- NOTE | 2023-03-10 13:29 | CON ---
Date of Consultation: 03/10/2023 Reason For Consultation: Elevated BUN and creatinine, fluid management. History Of Present Illness: This is a pleasant 88-year-old gentleman, well known to me from the office with significant past medical history of hypertension, hyperlipidemia, renal cysts, chronic kidney disease stage 3, normal size kidney 10.12/13, minimal proteinuria secondary to hypertension, nephrosclerosis, left renal cyst simple 1.4 cm, the patient was in his regular state of health, came to the hospital, having an intermittent black stool for almost a month. Found to have elevation in BUN, creatinine, creatinine 2.6, GFR 22. For that reason, we have been consulted. The patient has low blood pressure. The patient lost creatinine back in August 2022. At that time, creatinine 1.3, GFR of 50. The patient denied taking any nonsteroidal, contrast. The patient was started on p.r.n. transfusion. Creatinine has dropped from 2.6 to 4. The patient is still on room air. Past Medical History: 1. Chronic kidney disease stage 3 secondary to hypertension, nephrosclerosis, baseline creatinine 1.4. 2. Hyperlipidemia. 3. Renal cyst on the left side, 1.4 cm. 4. GERD. Allergies: NO KNOWN DRUG ALLERGY. Social History: Denied smoking. Denied alcohol. Denied drug abuse. Review of Systems: Head and Neck: No red eye. No ear pain. GI: No nausea. No vomiting. Has black stool. : No polyuria. No dysuria. No hematuria. PATIENT CARRIER: Not applicable. Respiratory: No shortness of breath. Cardiovascular: No chest pain. Endocrine: No polydipsia. Skin: No rash. Physical Examination: Vital Signs: When I saw the patient, blood pressure 140/62, pulse of 75, afebrile. Chest: Clear to auscultation. Heart: S1, S2. Systolic murmur. Abdomen: Soft, nontender. Extremities: No edema. Neurologic: Alert. No focality. Imaging Data: CT abdomen without contrast was done showing mild ascites. No mention for any hydronephrosis. Laboratory Data: Upon admission to the hospital, creatinine 2.6, GFR of 22. Currently, sodium 140, potassium 3.4, bicarb 29, BUN 44, creatinine 2.4, GFR 25, uric acid 10.7, calcium 7.7, phosphorus 2.2. Urinalysis, PC ratio is 0.03. Current Medications: The patient is on include LR, pantoprazole. Assessment And Plan: 1. Acute kidney injury secondary to prerenal, obstructive uropathy has been ruled out. I agree with current hydration and we will monitor. Hold all blood pressure medication given the low blood pressure, especially WENDY inhibitor or ARB. 2. Hypertension with the presence of low blood pressure and acute kidney injury. Hold all blood pressure medication. 3. Hypokalemia. Continue LR. We will supplement cautiously. We will check for his magnesium and TSH. 4. GI bleed. P.r.n. transfusion. We will follow up with primary and GI. 5. Time spent examining the patient [id number], reviewing data, lab and radiology, placing order, discussing the case with the patient, discussing the case with the outreach team member including hospitalist and nursing staff more than 75 minutes. time spend exam the patient face to face reviweing data lab and radiology , placing order , disccussing the case with the steamboat inspector including hopsitalist and nursing staff >75 min FATUMA Voice ID: [id number] Report ID: [id number] KENNETH
[2023-03-11] MEDS: Ringers Lactate 1,000 ML IV SCH ×3 (02:39→14:31)
[2023-03-11 07:23] LABS: Absolute Lymphocytes (CBC) 0.5 K/uL (0.7-4.9); Hematocrit 23.7 % (39.6-49.0); MCV 103.3 fL (80-100); MPV 8.1 fL (7.6-11.3); Platelets 121 thou/uL (152-406); RBC Red Blood Cell Count 2.29 M/uL (4.33-5.43)
[2023-03-11 07:26] LABS: Potassium 4.6 mEq/L (3.5-5.1)
[2023-03-11] MEDS: PANTOPRAZOLE INJ 80 MG in NA CHLORIDE 0.9% 250 ML IV SCH ×2 (08:32→21:10)
[2023-03-11] MEDS: FERROUS SULFATE 325 MG TAB PO SCH ×2 (08:32→21:01)
[2023-03-11] MEDS ORDERED: PANTOPRAZOLE INJ 80 MG in NA CHLORIDE 0.9% 250 ML IV SCH (11:00)
[2023-03-11] MEDS ORDERED: NA CHLORIDE 0.9% 250 ML IV SCH (12:00)
--- NOTE | 2023-03-11 14:39 | P.PN ---
Subjective Date of Service: 03/11/23 Chief Complaint: Rectal Bleeding Patient is alert and oriented x 3 Sitting up in the bed Vitals stable Patient is receiving 1 unit PRBC at this time. As his hemoglobin dropped to 6.9 this morning No active bleeding <Sindy Ball - Last Filed: 03/11/23 14:39> Date of Service: 03/12/23 <Bekah Moody - Last Filed: 03/12/23 11:34> Review of Systems 10-point ROS is otherwise unremarkable <Sindy Ball - Last Filed: 03/11/23 14:39> Physical Examination - Vital Signs Temperature: 97.6 F Blood Pressure: 132/68 Pulse: 65 Respirations: 16 Pulse Ox (%): 99 - Physical Exam General: Alert, In no apparent distress, Oriented x3 HEENT: Atraumatic, Normocephalic Neck: Supple, 2+ carotid pulse no bruit Respiratory: Clear to auscultation bilaterally, Normal air movement Cardiovascular: No edema, Normal pulses Capillary refill: <2 Seconds Gastrointestinal: Normal bowel sounds, Soft and benign Musculoskeletal: No clubbing, No swelling Integumentary: No rashes, No breakdown Neurological: Normal gait, Normal speech <Sindy Ball - Last Filed: 03/11/23 14:39> Assessment And Plan - Current Problems (Diagnosis) (1) GI bleeding Current Visit: Yes Status: Acute Qualifiers: GI bleed type/associated pathology: unspecified gastrointestinal hemorrhage type Qualified Code(s): K92.2 - Gastrointestinal hemorrhage, unspecified (2) Anemia due to gastrointestinal blood loss Current Visit: Yes Status: Acute (3) Weakness Current Visit: Yes Status: Acute (4) HTN (hypertension) Current Visit: Yes Status: Chronic Qualifiers: Hypertension type: primary hypertension Qualified Code(s): I10 - Essential (primary) hypertension (5) HLD (hyperlipidemia) Current Visit: Yes Status: Chronic (6) GERD (gastroesophageal reflux disease) Current Visit: Yes Status: Chronic Qualifiers: Esophagitis presence: without esophagitis Qualified Code(s): K21.9 - Gastro-esophageal reflux disease without esophagitis - Plan GI bleed/ Melena: Will continue protonix drip and IVF. Monitor H/H. Anemia: Hemoglobin of 6.9 over hematocrit 20 receiving 1 unit of packed RBC at this time. Will continue to monitor H&H after the transfusion She will will need to be transferred out if hemoglobin continued to drop Dr. Syed is planning to do it EGD, consent taken. Htn: Chronic, controlled, Will monitor BP for now. HLD: Chronic controlled on statin GERD: protnix Generalized weakness: due to anemia or GI bleed. Will trend H/h. DVT ppx: SCD Code: Full code Diet regular Discharge Plan: Home Plan to discharge in: 48 Hours - Code Status/Comfort Care Code Status Assessed: Yes (full code) Code Status: Full Code Physician Review: Patient Assessed, Agree with Above Assessment and Plan Critical Care: No Time Spent Managing PTS Care (In Minutes): 35 (minutes) <Sindy Ball - Last Filed: 03/11/23 14:39> Physician Review Additional Text: 03/12/23 11:33 Pt seen and examined. I agree with the note by the TRIMMING OPERATOR. GI will do EGD today. Will monitor H/H. Continue protonix drip <Bekah Moody - Last Filed: 03/12/23 11:34>
[2023-03-11 15:23] VITALS: BMI 22.3
--- NOTE | 2023-03-11 16:26 | P.PN ---
Subjective Date of Service: 03/11/23 Chief Complaint: Rectal Bleeding Subjective: No new changes Physical Examination - Vital Signs Temperature: 97.6 F Blood Pressure: 132/68 Pulse: 65 Respirations: 16 Pulse Ox (%): 99 - Physical Exam General: Other (chronically ill-appearing) HEENT: Atraumatic, Normocephalic Neck: Supple Respiratory: Other (symmetric chest expansion) Cardiovascular: No rubs, No murmurs Gastrointestinal: Soft and benign, No guarding Musculoskeletal: No clubbing Integumentary: No warmth Neurological: Normal tone Urinary: Other (no bladder distention) External genitalia: Deferred Rectal: Deferred Assessment And Plan - Plan 1. Acute kidney injury secondary to prerenal state. Improved. IV hydration. monitor renal panel. 2. Hypertension. Monitor BP. 3. Hypokalemia. Improved. KCl repletion prn. 4. Anemia. S/p pRBC transf. Monitior CBC. 5. GI bleed. P.r.n. transfusion. For GI scope today. Physician Review: Patient Assessed, Agree with Above Assessment and Plan
[2023-03-11] MEDS ORDERED: Ringers Lactate 1,000 ML IV ONE (16:46)
[2023-03-11] MEDS ORDERED: EPINEPHRINE 1 MG/ML VIAL ONE ×2 (17:04→17:21)
[2023-03-12 00:47] LABS: Hematocrit 30.3 % (39.6-49.0)
[2023-03-12] MEDS: Ringers Lactate 1,000 ML IV SCH ×2 (06:15→10:00)
[2023-03-12] MEDS: PANTOPRAZOLE INJ 80 MG in NA CHLORIDE 0.9% 250 ML IV SCH ×2 (08:17→18:00)
[2023-03-12] MEDS: CEFTRIAXONE 1,000 MG in NA CHLORIDE 0.9% 50 ML IVPB SCH (08:17)
[2023-03-12] MEDS: FERROUS SULFATE 325 MG TAB PO SCH ×2 (08:18→19:50)
[2023-03-12 08:36] LABS: Absolute Lymphocytes (CBC) 0.7 K/uL (0.7-4.9); Hematocrit 31.2 % (39.6-49.0); Lymphocytes % 9.2 % (15.3-44.8); MCV 101.3 fL (80-100); MPV 7.9 fL (7.6-11.3); Platelets 174 thou/uL (152-406); RBC Red Blood Cell Count 3.08 M/uL (4.33-5.43)
[2023-03-12 08:55] LABS: Potassium 4.9 mEq/L (3.5-5.1)
[2023-03-12 10:54] LABS: Magnesium 1.8 mg/dL (1.6-2.4); Phosphorus 2.2 mg/dL (2.5-4.9)
--- NOTE | 2023-03-12 11:14 | PN ---
Date of Progress Note: 03/12/2023 Subjective: Patient was admitted to the hospital with acute kidney injury. Patient had upper GI bleed, this required transfusion. Physical Examination: Vital Signs: When I saw the patient, blood pressure 137/62, pulse of 70, afebrile. Chest: Clear to auscultation. Heart: S1, S2 regular. Abdomen: Soft, nontender. Extremities: Trace edema. Neurologic: Alert. No focality. Laboratory Data: Hemoglobin Sodium 138, potassium 4.9, bicarb 24, BUN 27, creatinine 1.79, calcium of 8. Current Medications: The patient is on include ceftriaxone, albuterol, ferrous sulfate, pantoprazole, LR. Assessment And Plan: 1. Acute kidney injury secondary to prerenal, recovered close to his baseline. I am going to discontinue IV fluid and we will monitor the patient. 2. Hypokalemia, resolved. 3. Hyponatremia, depletional. Discontinue IV fluid. 4. Hypertension, controlled, optimal. Continue to hold any diuresis for the time being given the acute kidney injury. 5. Gastrointestinal bleed as by primary and GI. time spend exam the patient face to face reviweing data lab and radiology , placing order , disccussing the case with the steam turbine operator including hopsitalist and nursing staff >35 min FATUMA Voice ID: [id number] Report ID: [id number] MTDD
[2023-03-12] MEDS ORDERED: Ringers Lactate 1,000 ML IV ONE (13:46)
[2023-03-12] MEDS: POTASS/SODIUM PHOSPHATE 1 PKT POWD.PACK PO SCH ×2 (14:00→18:14)
[2023-03-12] MEDS ORDERED: propofoL 200 MG/20 ML VIAL IV ONE (16:59)
[2023-03-12] MEDS ORDERED: EPINEPHRINE 1 MG/ML VIAL ONE (17:02)
--- NOTE | 2023-03-12 17:17 | P.PN ---
Date of Service: 03/12/23 Subjective Chief Complaint: Rectal Bleeding Patient is alert and oriented x 3 Sitting up in the bed Vitals stable Hemoglobin improved, for EGD today by Dr. Syed No active bleeding Review of Systems 10-point ROS is otherwise unremarkable Physical Examination - Vital Signs Temperature: 97.1 F Blood Pressure: 130/62 Pulse: 70 Respirations: 16 Pulse Ox (%): 94 - Physical Exam General: Alert, In no apparent distress, Oriented x3 HEENT: Atraumatic, Normocephalic Neck: Supple, 2+ carotid pulse no bruit Respiratory: Clear to auscultation bilaterally, Normal air movement Cardiovascular: No edema, Normal pulses Capillary refill: <2 Seconds Gastrointestinal: Normal bowel sounds, Soft and benign Musculoskeletal: No clubbing, No swelling Integumentary: No rashes, No breakdown Neurological: Normal gait, Normal speech Assessment And Plan - Current Problems (Diagnosis) (1) GI bleeding Current Visit: Yes Status: Acute Qualifiers: GI bleed type/associated pathology: unspecified gastrointestinal hemorrhage type Qualified Code(s): K92.2 - Gastrointestinal hemorrhage, unspecified (2) Anemia due to gastrointestinal blood loss Current Visit: Yes Status: Acute (3) Weakness Current Visit: Yes Status: Acute (4) HTN (hypertension) Current Visit: Yes Status: Chronic Qualifiers: Hypertension type: primary hypertension Qualified Code(s): I10 - Essential (primary) hypertension (5) HLD (hyperlipidemia) Current Visit: Yes Status: Chronic (6) GERD (gastroesophageal reflux disease) Current Visit: Yes Status: Chronic Qualifiers: Esophagitis presence: without esophagitis Qualified Code(s): K21.9 - Gastro-esophageal reflux disease without esophagitis - Plan GI bleed/ Melena: Will continue protonix drip and IVF. Monitor H/H. Anemia: Hemoglobin of 10.5 / hct 31 today. Will continue to monitor H&H after the transfusion Dr. Syed is planning to do it EGD today, consent taken. Htn: Chronic, controlled, Will monitor BP for now. HLD: Chronic controlled on statin GERD: protnix Generalized weakness: due to anemia or GI bleed. Will trend H/h. DVT ppx: SCD Code: Full code Diet regular Discharge Plan: Home Plan to discharge in: 48 Hours <Sindy Ball - Last Filed: 03/12/23 17:29> Pt seen and examined. I agree with the note by the LEAN SIX SIGMA BLACK BELT. EGD shows duodenal ulcer. Monitor H/h. Continue protonix <Bekah Moody - Last Filed: 03/13/23 16:28>
--- NOTE | 2023-03-12 17:44 | P.PN ---
Subjective Date of Service: 03/12/23 Chief Complaint: Rectal Bleeding Patient is alert and oriented x 3 Sitting up in the bed Vitals stable Patient is receiving 1 unit PRBC at this time. As his hemoglobin dropped to 6.9 this morning No active bleeding <Sindy Ball - Last Filed: 03/12/23 17:36> Date of Service: 03/13/23 Pt thomas nd examined. I agree withe note by the CUTTING MACHINE OPERATOR HELPER. GI will do EGD. Hgb is 10.5. <Bekah Moody - Last Filed: 03/13/23 07:41> Physical Examination - Vital Signs Temperature: 97.1 F Blood Pressure: 137/67 Pulse: 82 Respirations: 15 Pulse Ox (%): 99 <Sindy Ball - Last Filed: 03/12/23 17:36> Assessment And Plan - Current Problems (Diagnosis) (1) GI bleeding Current Visit: Yes Status: Acute Qualifiers: GI bleed type/associated pathology: unspecified gastrointestinal hemorrhage type Qualified Code(s): K92.2 - Gastrointestinal hemorrhage, unspecified (2) Anemia due to gastrointestinal blood loss Current Visit: Yes Status: Acute (3) Weakness Current Visit: Yes Status: Acute (4) HTN (hypertension) Current Visit: Yes Status: Chronic Qualifiers: Hypertension type: primary hypertension Qualified Code(s): I10 - Essential (primary) hypertension (5) HLD (hyperlipidemia) Current Visit: Yes Status: Chronic (6) GERD (gastroesophageal reflux disease) Current Visit: Yes Status: Chronic Qualifiers: Esophagitis presence: without esophagitis Qualified Code(s): K21.9 - Gastro-esophageal reflux disease without esophagitis - Plan GI bleed/ Melena: Will continue protonix drip and IVF. Monitor H/H. Anemia: Hemoglobin of 6.9 over hematocrit 20 receiving 1 unit of packed RBC at this time. Will continue to monitor H&H after the transfusion She will will need to be transferred out if hemoglobin continued to drop Dr. Syed is planning to do it EGD, consent taken. Htn: Chronic, controlled, Will monitor BP for now. HLD: Chronic controlled on statin GERD: protnix Generalized weakness: due to anemia or GI bleed. Will trend H/h. DVT ppx: SCD Code: Full code Diet regular Physician Review: Patient Assessed, Agree with Above Assessment and Plan <Sindy Ball - Last Filed: 03/12/23 17:36>
[2023-03-13] MEDS: PANTOPRAZOLE INJ 80 MG in NA CHLORIDE 0.9% 250 ML IV SCH ×2 (04:00→15:20)
[2023-03-13 07:33] LABS: Phosphorus 2.3 mg/dL (2.5-4.9); Potassium 4.8 mEq/L (3.5-5.1)
[2023-03-13] MEDS: FERROUS SULFATE 325 MG TAB PO SCH ×2 (07:52→21:22)
[2023-03-13] MEDS: CEFTRIAXONE 1,000 MG in NA CHLORIDE 0.9% 50 ML IVPB SCH (07:52)
[2023-03-13] MEDS: POTASS/SODIUM PHOSPHATE 1 PKT POWD.PACK PO SCH ×3 (08:01→10:44)
--- NOTE | 2023-03-13 10:05 | PN ---
Date of Progress Note: 03/13/2023 Subjective: Patient was admitted to the hospital with acute kidney injury secondary to prerenal, overdiuresis. After hydration, kidney function has been improved. Physical Examination: Vital Signs: When I saw the patient, blood pressure 116/57, pulse of 66, afebrile. Chest: Clear to auscultation. Heart: S1, S2. Regular. Abdomen: Soft, nontender. Extremities: No edema. Neurologic: Alert. No focality. Laboratory Data: Hemoglobin 10.5. Sodium 136, potassium 4.8, bicarb 24, BUN 21, creatinine 1.6. GFR 42. Calcium 7.7. Phosphorus 2.3. Current Medications: Patient is on include pantoprazole, albuterol, ceftriaxone, KCl. Assessment And Plan: 1. Acute kidney injury secondary to overdiuresis, recovered, resolved. 2. Hypertension, controlled, optimal. Continue current medication. Keep holding diuresis for the time being given the current volume status. 3. Hyponatremia, depletion, resolved. 4. Gastrointestinal bleed. Follow up with GI and Primary. Patient is cleared from the Renal standpoint for discharge planning. To follow up in the office in 2-3 weeks. time spend exam the patient face to face reviweing data lab and radiology , placing order , disccussing the case with the valve steamer including hopsitalist and nursing staff >35 min FATUMA Voice ID: [id number] Report ID: [id number] KENNETH
--- NOTE | 2023-03-13 13:14 | P.PN ---
Subjective Date of Service: 03/13/23 Chief Complaint: Melena > hematochezia. Hgb up to 10.5. Subjective: Improving (He feels well without any further GI bleeding noted. He is tolerating [place] diet well. He is on PPI therapy.) Review of Systems 10-point ROS is otherwise unremarkable General: Weakness (Improving.) Physical Examination - Vital Signs Temperature: 97.4 F Blood Pressure: 135/71 Pulse: 74 Respirations: 16 Pulse Ox (%): 96 - Physical Exam General: Alert, In no apparent distress, Oriented x3, Cooperative HEENT: Atraumatic, Normocephalic, PERRLA, EOMI Neck: Supple Respiratory: Normal air movement Cardiovascular: Normal pulses Gastrointestinal: Soft and benign, No tenderness, No rebound, No guarding Neurological: Normal speech, Normal strength at 5/5 x4 extr Assessment And Plan - Current Problems (Diagnosis) (1) Melena Current Visit: Yes Status: Acute (2) Duodenal ulcer Current Visit: Yes Status: Acute (3) Anemia due to gastrointestinal blood loss Current Visit: Yes Status: Acute (4) Weakness Current Visit: Yes Status: Acute (5) GERD (gastroesophageal reflux disease) Current Visit: Yes Status: Chronic Qualifiers: Esophagitis presence: without esophagitis Qualified Code(s): K21.9 - Gastro-esophageal reflux disease without esophagitis (6) Abnormal CT of the abdomen Current Visit: Yes Status: Acute (7) Liver lesion, left lobe Current Visit: Yes Status: Acute (8) Liver lesion, right lobe Current Visit: Yes Status: Acute - Plan REC: 1) await pathology 2) acid suppression therapy 3) await AFP 4) check MRI liver Physician Review: Patient Assessed, Agree with Above Assessment and Plan
--- NOTE | 2023-03-13 14:32 | CON ---
Date of Consultation: 03/12/2023 Reason For Consultation: GI bleed with melena. History Of Present Illness: The patient is an 88-year-old white male with history of hypertension, h yperlipidemia, chronic kidney disease, gastric reflux disease. Patient presented to hospital with me montoya. By chart review, he had black stools and then some red but it seemed to be more black than red . He has also had some bleeding over the past month, but more consistent over the past 3 days. Past Medical History: Significant for hypertension, hyperlipidemia, chronic kidney disease, gastric reflux disease. Lives at home with a female roommate it appears. They are not involved it appears. Social History: No tobacco. No alcohol. Lives with a female roommate at home. Family at bedside n ow, reporting this. Allergies: NKDA. Home Medications: Include Norvasc, Pease, Phenergan, Qualaquin, Ensure Clear, Protonix and sotalol. Review of Systems: The patient has melena, some hematochezia. He denies any hematemesis, coffee-grounds emesis, abdomin al pain, nausea, vomiting, fevers, chills, night sweats, chest pain, shortness of breath, seizure, sy ncope, muscle aches, joint aches, backaches, depression, anxiety. Physical Examination: Vital Signs: He is 6 feet, 164 pounds, BMI 22.3 kg/sq m, has a temperature of 99.6 degrees Fahrenhei t, pulse 65, respirations 16, blood pressure 149/67, O2 saturation 98%-100%. General: He is elderly male, lying in bed, in no acute distress. HEENT: Normocephalic, atraumatic. Anicteric. Pupils equal, round, and reactive to light. Extraocu lar movements are intact. Oropharynx clear. Neck: Supple. No masses. Respirations: Clear to auscultation bilaterally. Cardiac: Regular rate and rhythm. No gallop or rubs. Abdomen: Positive bowel sounds. Soft, nontender, nondistended. No hepatosplenomegaly. Extremities: No clubbing, no cyanosis, or edema. 2+ pulses. Neuro: Alert and oriented x3. Grossly nonfocal. 5/5 motor strength. Sensation intact to light jun ch. Laboratory Data: The patient has a white count of 7.2, hemoglobin of 10.5, up from 6.8 at lowest, in itially it was 9.0 down to 6.8, now back up to 10.5. Hematocrit 31.2, MCV of 101.3, platelet count o f 174, polys of 75%, lymphocytes 9%, monocytes 8%, eosinophils 7%, PT of 13.6, INR 1.34, PTT of 40.7, sodium 138, potassium 4.9, chloride 110, bicarb 24, BUN of 27, creatinine of 1.8, glucose 93, calciu m of 8.0, phosphorus 2.2, magnesium 1.8. UA showed 250 leukocyte esterase, 20-50 white blood cells, less than 5 squamous epithelial cells. No bacteria seen. pyuria. CT abdomen and pelvis done on March 09, revealed significant liver cirrhosis pattern with mild to moderate ascites. Also , poorly delineated low-density hepatic lesions are present, which include 3.7 cm lesion in the anter ior left lobe of the liver, 3 cm involving the anterior right lobe of the liver. There also is a div erticulosis without diverticulitis and moderate lower lumbar degenerative changes noted and mild to m oderate ascites. Impression: 1.Gastrointestinal bleed with melena, greater than hematochezia by chart review. 2.Anemia, hemoglobin initially 9.0 down to 6.8 and back up to 10.5, blood transfusion. 3.Abnormal CT scan revealing 3 and 3.7 cm liver lesions that were ill-defined without any further wo rkup. 4.Albumin 2.4, indicative of protein-calorie malnutrition and/or liver disease possibly, but his chary er chemistries appeared normal other than the albumin being low at 2.4. 5.History of gastric reflux disease, hypertension, hyperlipidemia, renal cyst, chronic kidney diseas e stage 3, and nephrosclerosis. Recommendations: 1.Gentle IV fluids. 2.IV Protonix. 3.N.p.o. 4.Proceed with EGD. 5.Continue serial H and H, and transfuse p.r.n. 6.MRI of liver and check alpha fetoprotein. 7.Liver workup. The possibility of liver disease in this patient with low albumin and lesions in th e liver. WS/MODL Voice ID: [id number] Report ID: [id number]
--- NOTE | 2023-03-13 15:55 | P.PN ---
Date of Service: 03/13/23 Subjective Chief Complaint: Rectal Bleeding Patient is alert and oriented x 3 Sitting up in the bed Vitals stable Hemoglobin improved, for EGD today by Dr. Syed No active bleeding Review of Systems 10-point ROS is otherwise unremarkable Physical Examination - Vital Signs Temperature: 97.1 F Blood Pressure: 130/62 Pulse: 70 Respirations: 16 Pulse Ox (%): 94 - Physical Exam General: Alert, In no apparent distress, Oriented x3 HEENT: Atraumatic, Normocephalic Neck: Supple, 2+ carotid pulse no bruit Respiratory: Clear to auscultation bilaterally, Normal air movement Cardiovascular: No edema, Normal pulses Capillary refill: <2 Seconds Gastrointestinal: Normal bowel sounds, Soft and benign Musculoskeletal: No clubbing, No swelling Integumentary: No rashes, No breakdown Neurological: Normal gait, Normal speech Assessment And Plan - Current Problems (Diagnosis) (1) GI bleeding Current Visit: Yes Status: Acute Qualifiers: GI bleed type/associated pathology: unspecified gastrointestinal hemorrhage type Qualified Code(s): K92.2 - Gastrointestinal hemorrhage, unspecified (2) Anemia due to gastrointestinal blood loss Current Visit: Yes Status: Acute (3) Weakness Current Visit: Yes Status: Acute (4) HTN (hypertension) Current Visit: Yes Status: Chronic Qualifiers: Hypertension type: primary hypertension Qualified Code(s): I10 - Essential (primary) hypertension (5) HLD (hyperlipidemia) Current Visit: Yes Status: Chronic (6) GERD (gastroesophageal reflux disease) Current Visit: Yes Status: Chronic Qualifiers: Esophagitis presence: without esophagitis Qualified Code(s): K21.9 - Gastro-esophageal reflux disease without esophagitis - Plan GI bleed/ Melena: Will continue protonix drip and IVF. Monitor H/H.EGD done By on 03/13/2023 Anemia: Hemoglobin of 10.5 / hct 31 today. Will continue to monitor H&H Htn: Chronic, controlled, Will monitor BP for now. HLD: Chronic controlled on statin GERD: protnix gtt. Generalized weakness: due to anemia or GI bleed. Will trend H/h. DVT ppx: SCD Code: Full code Diet regular Discharge Plan: Home Plan to discharge in: 48 Hours <Sindy Ball - Last Filed: 03/13/23 15:57> Pt seen and examined. I agree with the note by the HOMEBOUND TEACHER. No GI bleed overnight. Hgb is stable at 10.5. S/p EGD. Continue protonix <Bekah Moody - Last Filed: 03/21/23 15:05>
[2023-03-14] MEDS: PANTOPRAZOLE INJ 80 MG in NA CHLORIDE 0.9% 250 ML IV SCH ×2 (01:00→13:06)
[2023-03-14 07:51] LABS: Hepatitis B Core IgM Nonreactive (Nonreactive); Hepatitis B surface AG Interp. Nonreactive (Nonreactive); Hepatitis C Virus Ab Nonreactive (Nonreactive)
[2023-03-14] MEDS: CEFTRIAXONE 1,000 MG in NA CHLORIDE 0.9% 50 ML IVPB SCH (07:56)
[2023-03-14] MEDS: FERROUS SULFATE 325 MG TAB PO SCH ×2 (07:57→19:48)
--- NOTE | 2023-03-14 08:39 | P.PN ---
Subjective Date of Service: 03/14/23 Chief Complaint: Melena > hematochezia. Hgb up to 10.5. Hard of hearing, no complaints of abdominal pain, fever, tolerating diet - Physical Exam General: Alert, Oriented x3, [place] HEENT: Atraumatic, Normocephalic Neck: Supple, 2+ carotid pulse no bruit Respiratory: Clear to auscultation bilaterally, Normal air movement Cardiovascular: No edema, Normal pulses Capillary refill: <2 Seconds Gastrointestinal: Normal bowel sounds, Soft and benign, No ascites, No tenderness, No guarding, Distended Musculoskeletal: No clubbing, No swelling Integumentary: No rashes, No breakdown Review of Systems per HPI Physical Examination - Vital Signs Temperature: 97.3 F Blood Pressure: 101/53 Pulse: 84 Respirations: 15 Pulse Ox (%): 92 Assessment And Plan - Plan - Current Problems (Diagnosis) (1) GI bleeding-improved Current Visit: Yes Status: Acute Qualifiers: GI bleed type/associated pathology: unspecified gastrointestinal hemorrhage type Qualified Code(s): K92.2 - Gastrointestinal hemorrhage, unspecified EGD GI bleed/ Melena, Monitor H/H.EGD done By on 03/13/2023 GERD: PPI twice daily EGD 03/11/23 duodenal ulcer, anemia due to gastric bleeding, GERD, liver lesion, AFP ordered, consider MRI of the liver, PPI's. AFP pending Liver fibrosis panel Hepatitis panel nonreactive MRI with and without contrast ordered by Dr. Syed (2) Anemia due to gastrointestinal blood loss Current Visit: Yes Status: Acute Hemoglobin of 10.5 / hct 31 today. Will continue to monitor H&H (3) Weakness Current Visit: Yes Status: Acute Generalized weakness: due to anemia or GI bleed. Will trend H/h. PT consulted (4) HTN (hypertension) Current Visit: Yes Status: Chronic Qualifiers: Hypertension type: primary hypertension Qualified Code(s): I10 - Essential (primary) hypertension Htn: Chronic, controlled, Will monitor BP for now. (5) HLD (hyperlipidemia) Current Visit: Yes Status: Chronic Chronic controlled on statin (6) GERD (gastroesophageal reflux disease) Current Visit: Yes Status: Chronic Qualifiers: Esophagitis presence: without esophagitis Qualified Code(s): K21.9 - Gastro-esophageal reflux disease without esophagitis DVT ppx: SCD Code: Full code Diet regular Discharge Plan: Home Physician Review: Patient Assessed, Agree with Above Assessment and Plan
[2023-03-14 11:38] LABS: Bilirubin Total 0.5 mg/dL (0.2-1.0); Magnesium 1.6 mg/dL (1.6-2.4); Potassium 4.9 mEq/L (3.5-5.1); Protein, Total 5.3 g/dL (6.4-8.2)
--- NOTE | 2023-03-14 13:34 | P.DS ---
Admission Date: 03/09/23 Discharge Date: 03/14/23 Reason for Admission: Melena > hematochezia. Hgb up to 10.5. Brief History of Present Illness: Mr. Brown 88-year-old male with a history of GERD, hypertension, hyperlipidemia, kidney disease presented to ER via wheelchair with complaints of bloody stools. The symptoms began at unknown time. Patient is not remembering when it started. Patient denies abdominal pain, nausea or vomiting. It is aggravated by nothing, . Patient reports blood in the stool, black and red, for past few days. Patient reported has been intermittent for last month or so but more consistent in the last 3 days. Denies shortness of breath, syncope, patient was brought to the hospital by his neighbor. Patient denies chest pain, palpitation, shortness of breath. Patient denies fever chills. ED course Patient alert and oriented x3, not in any acute distress. Vital signs blood pressure 95/79, pulse 80, respiration 18, temperature 97.1, pulse ox 100% EKG showing sinus rhythm. Patient was started on Protonix drip. Laboratory works significant for low hemoglobin of 9, hematocrit 27. Hypokalemia potassium 3, elevated BUN 45, creatinine 2.68, low GFR 22. Admitted the patient with a diagnosis of GI bleeding, anemia, weakness, acute kidney injury. - Physical Exam General: Alert, Oriented x3 HEENT: Atraumatic, Normocephalic Neck: Supple, 2+ carotid pulse no bruit Respiratory: Clear to auscultation bilaterally, Normal air movement Cardiovascular: No edema, Normal pulses Capillary refill: <2 Seconds Gastrointestinal: Normal bowel sounds, Soft and benign, No ascites, No tenderness, No guarding, Distended Musculoskeletal: No clubbing, No swelling Integumentary: No rashes, No breakdown Hospital Course: - Plan - Current Problems (Diagnosis) (1) GI bleeding-improved Current Visit: Yes Status: Acute Qualifiers: GI bleed type/associated pathology: unspecified gastrointestinal hemorrhage type Qualified Code(s): K92.2 - Gastrointestinal hemorrhage, unspecified EGD GI bleed/ Melena, Monitor H/H.EGD done By on 03/13/2023 GERD: PPI twice daily EGD 03/11/23 duodenal ulcer, anemia due to gastric bleeding, GERD, liver lesion, AFP ordered, consider MRI of the liver, PPI's. AFP pending Liver fibrosis panel Hepatitis panel nonreactive MRI with and without contrast ordered by Dr. Syed (2) Anemia due to gastrointestinal blood loss improved Current Visit: Yes Status: Acute Hemoglobin of 10.5 / hct 31 today. Will continue to monitor H&H (3) Weakness Current Visit: Yes Status: Acute Generalized weakness: due to anemia or GI bleed. Will trend H/h. patient is on continuous bedrest (4) HTN (hypertension) Current Visit: Yes Status: Chronic Qualifiers: Hypertension type: primary hypertension Qualified Code(s): I10 - Essential (primary) hypertension Htn: Chronic, controlled, Will monitor BP for now. (5) HLD (hyperlipidemia) Current Visit: Yes Status: Chronic Chronic controlled on statin (6) GERD (gastroesophageal reflux disease) Current Visit: Yes Status: Chronic Qualifiers: Esophagitis presence: without esophagitis Qualified Code(s): K21.9 - Gastro-esophageal reflux disease without esophagitis Vital Signs/Physical Exam: Temp Pulse Resp BP Pulse Ox 97.3 F 84 15 101/53 L 92 03/14/23 13:32 03/14/23 13:32 03/14/23 13:32 03/14/23 13:32 03/14/23 13:32 Laboratory Data at Discharge: WBC 7.20 thou/uL (4.3-10.9) 03/12/23 07:51 Hgb 10.5 g/dL (13.6-17.9) L 03/12/23 07:51 Hct 31.2 % (39.6-49.0) L 03/12/23 07:51 Plt Count 174 thou/uL (152-406) D 03/12/23 07:51 PT 13.6 SECONDS (9.5-12.5) H 03/09/23 19:59 INR 1.24 03/09/23 19:59 APTT 40.7 SECONDS (24.3-36.9) H 03/09/23 19:59 Sodium 135 mEq/L (136-145) L 03/14/23 11:14 Potassium 4.9 mEq/L (3.5-5.1) 03/14/23 11:14 BUN 15 mg/dL (7-18) 03/14/23 11:14 Creatinine 1.68 mg/dL (0.70-1.30) H 03/14/23 11:14 Glucose 144 mg/dL (74-106) H 03/14/23 11:14 Uric Acid 10.8 mg/dL (3.5-7.2) H 03/10/23 02:52 Phosphorus 2.6 mg/dL (2.5-4.9) 03/14/23 06:10 Magnesium 1.6 mg/dL (1.6-2.4) 03/14/23 11:14 Total Bilirubin 0.5 mg/dL (0.2-1.0) 03/14/23 11:14 AST 22 U/L (15-37) 03/14/23 11:14 ALT 15 U/L (16-61) L 03/14/23 11:14 Alkaline Phosphatase 97 U/L (45-117) 03/14/23 11:14 Triglycerides 72 mg/dL (<150) 03/10/23 02:52 Cholesterol 75 mg/dL (<200) 03/10/23 02:52 HDL Cholesterol 38 mg/dL (40-60) L 03/10/23 02:52 Cholesterol/HDL Ratio 1.97 03/10/23 02:52 Lipase 46 U/L (13-75) 03/09/23 13:54 Home Medications: Amlodipine Besylate [Norvasc] 5 mg PO DAILY 10/07/11 Hydrocodone Bit/Acetaminophen [[place] 7.5-325 Tablet] 1 each PO QIDP PRN 10/07/11 PROMETHAZINE TAB *er disp* [[id number](4/BOX)*forerdispense] 25 mg PO Q6HP PRN 10/07/11 Qualaquin 324 mg PO BEDTIME 10/07/11 Ensure Clear 237 ml PO BID #60 can 11/25/22 Pantoprazole [Protonix Tab] 40 mg PO BID #60 tab 11/25/22 Sotalol HCl [Betapace*] 40 mg PO BID 6AM 6PM #30 tab 11/25/22 Followup: NONE,NONE [Primary Care Provider] -
[2023-03-14 14:59] LABS: Absolute Lymphocytes (CBC) 0.5 K/uL (0.7-4.9); Hematocrit 30.4 % (39.6-49.0); Lymphocytes % 7.4 % (15.3-44.8); MCV 101.3 fL (80-100); MPV 7.9 fL (7.6-11.3); Platelets 175 thou/uL (152-406)
[2023-03-14] MEDS ORDERED: ACETAMINOPHEN 500 MG TAB PO PRN (17:59)
[2023-03-14] MEDS ORDERED: NA CHLORIDE 0.9% 250 ML IV SCH ×2 (18:00→19:00)
[2023-03-14] MEDS ORDERED: ALBUTEROL 2.5 MG/3 ML NEB SOL NEB PRN (18:00)
[2023-03-14] MEDS ORDERED: MORPHINE 2 MG/ML SYR IV PRN (18:02)
--- NOTE | 2023-03-14 18:41 | RAD REPORT ---
EXAM DESCRIPTION: MRI - Mri Abdomen W/Wo Cont - 03/14/2023 5:22 pm CLINICAL HISTORY: Liver mass COMPARISON: March 09, 2023 CT TECHNIQUE: Axial and coronal magnetic resonance imaging of the l abdomen performed. 16 cc MultiHance administered intravenously FINDINGS: Images are degraded by patient motion artifact 4 centimeter early enhancing lesion superior left lobe liver 4 centimeter lesion medial segment left lobe liver. 3.5 centimeter lesion anterior segment right lobe liver superiorly The lesions have mildly increased signal T2 weighted sequences. Markedly cirrhotic liver. Recannulization umbilical vein. Upper quadrant varices. Moderate ascites Moderate to large hiatal hernia Portal vein is distended and patent IMPRESSION: Cirrhosis Hepatic lesions may indicate multifocal hepatocellular carcinoma. Metastases are another consideratio n
[2023-03-15] MEDS: PANTOPRAZOLE INJ 80 MG in NA CHLORIDE 0.9% 250 ML IV SCH (00:19)
--- NOTE | 2023-03-15 01:50 | PN ---
Date of Progress Note: 03/14/2023 Chief Complaint: Acute kidney injury. Subjective: The patient had developed prerenal azotemia and received IV fluids. The patient previou sly was taking diuretics and developed hypovolemia, which was the cause of acute kidney injury. The patient responded to IV fluids. Renal function has stabilized. The patient is on potassium replacem ent for hypokalemia. Hyponatremia was secondary to acute kidney injury and improved with adequate hy dration. Review of Systems: The patient denies complaints. Objective: Lungs: Clear to auscultation bilaterally. Heart: S1, S2. Abdomen: Soft, benign. Extremities: No edema. Impression And Plan: 1.Acute kidney injury secondary to over-diuresis. The patient responded to IV fluids. Continue justin quate hydration. 2.Hypertension, currently diuretic on hold due to acute kidney injury. Monitor fluid intake and uri ne output. 3.Hyponatremia, resolved. Continue adequate hydration and encourage to increase p.o. protein intake . 4.Gastrointestinal bleeding. Follow up with GI and Primary. EB/MODL Voice ID: [id number] Report ID: [id number]
[2023-03-15 07:25] LABS: Absolute Lymphocytes (CBC) 0.7 K/uL (0.7-4.9); Hematocrit 29.3 % (39.6-49.0); Lymphocytes % 10.8 % (15.3-44.8); MCV 101.4 fL (80-100); MPV 7.9 fL (7.6-11.3); Platelets 169 thou/uL (152-406); RBC Red Blood Cell Count 2.89 M/uL (4.33-5.43)
[2023-03-15] MEDS ORDERED: NA CHLORIDE 0.9% 250 ML IV ONE ×2 (07:39→16:40)
[2023-03-15] MEDS: FERROUS SULFATE 325 MG TAB PO SCH (07:48)
[2023-03-15] MEDS: PANTOPRAZOLE 40MG TABLET PO SCH ×2 (07:59→16:30)
[2023-03-15] MEDS ORDERED: NA CHLORIDE 0.9% 1,000 ML IV SCH (08:00)
[2023-03-15] MEDS ORDERED: CEFTRIAXONE 1,000 MG in NA CHLORIDE 0.9% 50 ML IVPB SCH (09:00)
[2023-03-15 10:38] VITALS: O2SAT 93
[2023-03-15] MEDS: MIDODRINE HCL 5 MG TABLET PO SCH ×2 (14:00→14:05)
--- NOTE | 2023-03-15 16:54 | P.PN ---
Subjective Date of Service: 03/15/23 Chief Complaint: Melena > hematochezia. Hgb up to 10.5. Hard of hearing, no complaints of abdominal pain, fever, tolerating diet - Physical Exam General: Alert, Oriented x3, [place] HEENT: Atraumatic, Normocephalic Neck: Supple, 2+ carotid pulse no bruit Respiratory: Clear to auscultation bilaterally, Normal air movement Cardiovascular: No edema, Normal pulses Capillary refill: <2 Seconds Gastrointestinal: Normal bowel sounds, Soft and benign, No ascites, No tenderness, No guarding, Distended Musculoskeletal: No clubbing, No swelling Integumentary: No rashes, No breakdown Physical Examination - Vital Signs Temperature: 97.3 F Blood Pressure: 139/71 Pulse: 96 Respirations: 17 Pulse Ox (%): 100 Assessment And Plan - Plan - Current Problems (Diagnosis) (1) GI bleeding-improved Current Visit: Yes Status: Acute Qualifiers: GI bleed type/associated pathology: unspecified gastrointestinal hemorrhage type Qualified Code(s): K92.2 - Gastrointestinal hemorrhage, unspecified EGD GI bleed/ Melena, Monitor H/H.EGD done By on 03/13/2023 GERD: PPI twice daily EGD 03/11/23 duodenal ulcer, anemia due to gastric bleeding, GERD, liver lesion, AFP ordered, consider MRI of the liver, PPI's. AFP pending Liver fibrosis panel Hepatitis panel nonreactive MRI with and without contrast ordered by Dr. Syed (2) Anemia due to gastrointestinal blood loss Current Visit: Yes Status: Acute Hemoglobin of 10.5 / hct 31 today. Will continue to monitor H&H (3) Weakness Current Visit: Yes Status: Acute Generalized weakness: due to anemia or GI bleed. Will trend H/h. PT consulted (4) HTN (hypertension) Current Visit: Yes Status: Chronic Qualifiers: Hypertension type: primary hypertension Qualified Code(s): I10 - Essential (primary) hypertension Htn: Chronic, controlled, Will monitor BP for now. (5) HLD (hyperlipidemia) Current Visit: Yes Status: Chronic Chronic controlled on statin (6) GERD (gastroesophageal reflux disease) Current Visit: Yes Status: Chronic Qualifiers: Esophagitis presence: without esophagitis Qualified Code(s): K21.9 - Gastro-esophageal reflux disease without esophagitis DVT ppx: SCD Code: Full code Diet regular Physician Review: Patient Assessed, Agree with Above Assessment and Plan
--- NOTE | 2023-03-15 18:06 | P.PN ---
Subjective Date of Service: 03/15/23 Chief Complaint: Melena > hematochezia. Hgb up to 10.5. Subjective: New changes (Hgb stable. No further GI bleeding. 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.) Review of Systems 10-point ROS is otherwise unremarkable General: Weakness, Malaise (Improving.) Physical Examination - Vital Signs Temperature: 97.3 F Blood Pressure: 139/71 Pulse: 96 Respirations: 17 Pulse Ox (%): 100 - Physical Exam General: Alert, In no apparent distress, Oriented x3, [place] HEENT: Atraumatic, Normocephalic, PERRLA, EOMI Neck: Supple Respiratory: Normal air movement Cardiovascular: Normal pulses Gastrointestinal: Soft and benign, No tenderness, No rebound, No guarding Neurological: Normal speech Assessment And Plan - Current Problems (Diagnosis) (1) Melena Current Visit: Yes Status: Acute (2) Duodenal ulcer Current Visit: Yes Status: Acute (3) Anemia due to gastrointestinal blood loss Current Visit: Yes Status: Acute (4) Weakness Current Visit: Yes Status: Acute (5) GERD (gastroesophageal reflux disease) Current Visit: Yes Status: Chronic Qualifiers: Esophagitis presence: without esophagitis Qualified Code(s): K21.9 - Gastro-esophageal reflux disease without esophagitis (6) Abnormal CT of the abdomen Current Visit: Yes Status: Acute (7) Liver lesion, left lobe Current Visit: Yes Status: Acute (8) Liver lesion, right lobe Current Visit: Yes Status: Acute - Plan REC: 1) await pathology 2) acid suppression therapy 3) await AFP 4) discuss with patient / family about further evaluation / therapy for probable neoplastic liver lesions or palliative care Physician Review: Patient Assessed, Agree with Above Assessment and Plan
--- NOTE | 2023-03-15 20:10 | PN ---
Date of Progress Note: 03/15/2023 Subjective: The patient was admitted to the hospital with acute kidney injury and GI bleed secondary to poor perfusion ATN, diuresis was discontinued. The patient's kidney function improved, back to b aseline. Objective: Vital Signs: Blood pressure 103/60, pulse of 74, afebrile. Chest: Clear to auscultation. Heart: S1, S2. Systolic murmur. Abdomen: Soft, nontender. Extremities: No edema. Neurologic: Alert. No focality. Difficulty hearing. Laboratory Data: Hemoglobin 9.7, sodium 135, potassium is 4.9, bicarb 25, BUN 15, creatinine 1.6, ca lcium 7.6, albumin is 2, corrected calcium is 9.2, phosphorus 2.6. Current Medications: The patient on, it includes midodrine, ceftriaxone, Tylenol, ferrous sulfate. Assessment And Plan: 1.Acute kidney injury secondary to prerenal, secondary to GI loss, recovered, back to baseline. 2.Hypertension, controlled, currently midodrine dependent. 3.Congestive heart failure, currently on the dry side. Keep holding diuresis. 4.Gastrointestinal bleed, as by Primary. JOSE/CIARAN Voice ID: [id number] Report ID: [id number]
[2023-03-15 20:12] VITALS: BP 101/67; TEMP 97.1
[2023-03-22 16:03] LABS: ALPHA2 MACROGLOBULIN 154 mg/dL (106-279); APOLIPOPROTEIN A1 92 mg/dL (94-176); FIBROSIS INTERPRETATION REPORT; FIBROSIS SCORE 0.62; HAPTOGLOBIN 86 mg/dL (43-212); NECRO ACT GRADE A0; NECRO INTERP REPORT; TOTAL BILIRUBIN 0.6 mg/dL (0.2-1.2)
== END 2023-03-15 20:25 | disposition home or self-care (01) | DRG 378 ==
LOC: ER 12:10 → ERHOLD 16:14 → 4TH 19:13
PROVIDERS: ADMIT Hospitalist; ATTEND Hospitalist
PROC: 0DD68ZX Extraction of Stomach, Via Natural or Artificial Opening Endoscopic, Diagnostic (ICD-10-PCS; 2023-03-09)
PROC: 30233N1 Transfusion of Nonautologous Red Blood Cells into Peripheral Vein, Percutaneous Approach (ICD-10-PCS; principal; 2023-03-10)
DX: K26.0 Acute duodenal ulcer with hemorrhage (principal); D62 Acute posthemorrhagic anemia; N17.9 Acute kidney failure, unspecified; R18.8 Other ascites; E87.1 Hypo-osmolality and hyponatremia; K21.9 Gastro-esophageal reflux disease without esophagitis; E78.00 Pure hypercholesterolemia, unspecified; I10 Essential (primary) hypertension; Z60.2 Problems related to living alone; Z87.891 Personal history of nicotine dependence; Z79.899 Other long term (current) drug therapy; N30.90 Cystitis, unspecified without hematuria; K74.60 Unspecified cirrhosis of liver; I70.0 Atherosclerosis of aorta; N18.30 Chronic kidney disease, stage 3 unspecified; I12.9 Hypertensive chronic kidney disease with stage 1 through stage 4 chronic kidney disease, or unspecified chronic kidney disease; E87.5 Hyperkalemia; E87.6 Hypokalemia; E55.9 Vitamin D deficiency, unspecified; K29.50 Unspecified chronic gastritis without bleeding; R53.1 Weakness; N28.1 Cyst of kidney, acquired; B96.1 Klebsiella pneumoniae [K. pneumoniae] as the cause of diseases classified elsewhere
CPT/HCPCS: 36415; 36430; 74176; 74183; 80048; 80053; 80061; 80074; 81001; 81596; 82043; 82105; 82570; 82941; 83690; 83735; 84100; 84156; 84550; 85014; 85018; 85025; 85610; 85730; 86038; 86160; 86850; 86900; 86901; 86920; 87077; 87086; 87088; 87186; 88305; 88312; 96365; 96366; 99285; A9577; C9113; J0171; J0696; J2270; J2704; J3480; J7030; J7050; J7120; P9016; P9040